=== PATIENT | female | born 1950 ===

== ENCOUNTER 2025-07-10 13:28 | Outpatient (AMB) | payer MEDICARE, SELFPAY ==
--- OUTSIDE RECORDS SUMMARY | 2024-12-23 10:00 | XMS_ITS ---
Author Organization [facility] [address] Address [address] [place] [address] Care Team Providers Care Senior Director Of Strategy Name Role Phone KATIE GUTIÉRREZ Primary Care Provider JIMMIE LOFTON Unavailable [phone] Problems Problem Type SNOMED Code ICD Code Onset Dates Problem Status W/U Status Risk Notes Problem Chronic hypoxic respiratory failure (J96.11) Active confirmed Encounters Encounter Location Date Provider Diagnosis [facility] [address] [facility] [address] [facility] [place] [address] [place] [address] 12/23/2024 JIMMIE LOFTON Chronic obstructive pulmonary disease, unspecified J44.9 ; Chronic hypoxic respiratory failure J96.11 ; Essential hypertension I10 ; Chronic diastolic heart failure I50.32 ; Morbid obesity E66.01 ; Dependence on supplemental oxygen Z99.81 ; Body mass index (BMI) 50-59.9 , adult Z68.43 and Other chronic pain G89.29 Assessments Encounter Date Diagnosis (ICD Code) Assessment Notes Treatment Notes Treatment Clinical Notes Section Notes 12/23/2024 Chronic obstructive pulmonary disease, unspecified (ICD-10 - J44.9) Acute Concerns/Problem List: 12/23/2024 Of note, some information is being carried forward from prior records for informational purposes only and is being cited so that efficiency, safety and quality of the patient's care is not compromised This note was prepared using voice recognition software and direct typing Please excuse inadvertent perch mender or typing errors, or uncorrected word substitutions Although every attempt has been made by the provider to proofread this document, occasional misspellings and typographical errors may still be present Due to the previous pandemic, and the use of personal protective equipment (PPE) This may decrease voice recognition accuracy Inadvertent perch mender errors may occur 12/23/2024 Chronic hypoxic respiratory failure (ICD-10 - J96.11) Acute Concerns/Problem List: 12/23/2024 Of note, some information is being carried forward from prior records for informational purposes only and is being cited so that efficiency, safety and quality of the patient's care is not compromised This note was prepared using voice recognition software and direct typing Please excuse inadvertent perch mender or typing errors, or uncorrected word substitutions Although every attempt has been made by the provider to proofread this document, occasional misspellings and typographical errors may still be present Due to the previous pandemic, and the use of personal protective equipment (PPE) This may decrease voice recognition accuracy Inadvertent perch mender errors may occur 12/23/2024 Essential hypertension (ICD-10 - I10) Acute Concerns/Problem List: 12/23/2024 Of note, some information is being carried forward from prior records for informational purposes only and is being cited so that efficiency, safety and quality of the patient's care is not compromised This note was prepared using voice recognition software and direct typing Please excuse inadvertent perch mender or typing errors, or uncorrected word substitutions Although every attempt has been made by the provider to proofread this document, occasional misspellings and typographical errors may still be present Due to the previous pandemic, and the use of personal protective equipment (PPE) This may decrease voice recognition accuracy Inadvertent perch mender errors may occur 12/23/2024 Chronic diastolic heart failure (ICD-10 - I50.32) Acute Concerns/Problem List: 12/23/2024 Of note, some information is being carried forward from prior records for informational purposes only and is being cited so that efficiency, safety and quality of the patient's care is not compromised This note was prepared using voice recognition software and direct typing Please excuse inadvertent perch mender or typing errors, or uncorrected word substitutions Although every attempt has been made by the provider to proofread this document, occasional misspellings and typographical errors may still be present Due to the previous pandemic, and the use of personal protective equipment (PPE) This may decrease voice recognition accuracy Inadvertent perch mender errors may occur 12/23/2024 Morbid obesity (ICD-10 - E66.01) Acute Concerns/Problem List: 12/23/2024 Of note, some information is being carried forward from prior records for informational purposes only and is being cited so that efficiency, safety and quality of the patient's care is not compromised This note was prepared using voice recognition software and direct typing Please excuse inadvertent perch mender or typing errors, or uncorrected word substitutions Although every attempt has been made by the provider to proofread this document, occasional misspellings and typographical errors may still be present Due to the previous pandemic, and the use of personal protective equipment (PPE) This may decrease voice recognition accuracy Inadvertent perch mender errors may occur 12/23/2024 Dependence on supplemental oxygen (ICD-10 - Z99.81) Acute Concerns/Problem List: 12/23/2024 Of note, some information is being carried forward from prior records for informational purposes only and is being cited so that efficiency, safety and quality of the patient's care is not compromised This note was prepared using voice recognition software and direct typing Please excuse inadvertent perch mender or typing errors, or uncorrected word substitutions Although every attempt has been made by the provider to proofread this document, occasional misspellings and typographical errors may still be present Due to the previous pandemic, and the use of personal protective equipment (PPE) This may decrease voice recognition accuracy Inadvertent perch mender errors may occur 12/23/2024 Body mass index (BMI) 50-59.9 , adult (ICD-10 - Z68.43) Acute Concerns/Problem List: 12/23/2024 Of note, some information is being carried forward from prior records for informational purposes only and is being cited so that efficiency, safety and quality of the patient's care is not compromised This note was prepared using voice recognition software and direct typing Please excuse inadvertent perch mender or typing errors, or uncorrected word substitutions Although every attempt has been made by the provider to proofread this document, occasional misspellings and typographical errors may still be present Due to the previous pandemic, and the use of personal protective equipment (PPE) This may decrease voice recognition accuracy Inadvertent perch mender errors may occur 12/23/2024 Other chronic pain (ICD-10 - G89.29) Acute Concerns/Problem List: 12/23/2024 Of note, some information is being carried forward from prior records for informational purposes only and is being cited so that efficiency, safety and quality of the patient's care is not compromised This note was prepared using voice recognition software and direct typing Please excuse inadvertent perch mender or typing errors, or uncorrected word substitutions Although every attempt has been made by the provider to proofread this document, occasional misspellings and typographical errors may still be present Due to the previous pandemic, and the use of personal protective equipment (PPE) This may decrease voice recognition accuracy Inadvertent perch mender errors may occur Plan Of Treatment No Information Progress Notes * TONJA KELLOGG ADOB:[birth year] (74 yo F)Acc No.[id number]:12/23/2024 Progress Notes Patient: TONJA MARTINEZ Provider: Alpa LOFTON NP :1950 A ge:74 Y S ex:Female Date:12/23/2024 Address:[address] [place] [address] [place], [place] [id number] Pcp:KATIE GUTIÉRREZ Subjective: * Chief Complaints: * * HPI: C onstitutional: Patient is here for Chronic Disease Management follow-up visit Patient seen and examined. Full past medical history, social history, family history, allergies and current medications were reviewed and updated. Acute Concerns/Problem List: 12/23/2024 chronically ill and medically complex Presents with Mikki AMANDA who is also her sister in law Mikki is her HCP and takes care of [facility] [employer] currently Patient with multiple chronic conditions and multiple recent hospitalizations at multiple facilities She has a past history that is significant for chronic hypoxic respiratory failure, oxygen dependent COPD normally on 3 L via nasal cannula, type 2 diabetes, hypertension, hyperlipidemia, morbid obesity, chronic diastolic heart failure Most recent EF showed normal EF, mild , She underwent right and left heart cath in May 2024 which showed no significant CAD. * ROS: A ll Other Systems: Review of Systems (ROS) A ll others negative except those mentioned in HPI. * Medical History: Objective: * Vitals: * Examination: G eneral Examination: P hysical Exam Constitutional: Alert, in no acute distress.Morbidly obese wheelchair-bound Head EENT: PERRL. NCAT. Neck: Supple. No obvious LAD. Respiratory: CTAB. No use of accessory muscles. Cardiovascular: S1S2 present. No obvious JVD. Gastrointestinal: Abdomen soft, non-tender, non-distended. Bowel sounds present. Genitourinary: No CVA tenderness. Genital exam deferred. Extremities: Mild edema. No cyanosis or clubbing. Neurologic: Alert, generally appropriate. Speech normal. No gross focal neurological deficits. Assessment: * Assessment: 1. C hronic obstructive pulmonary disease, unspecified - J44.9 (Primary) 2 .?Chronic hypoxic respiratory failure - J96.11 3 . E ssential hypertension - I10 4 . C hronic diastolic heart failure - I50.32 5 . M orbid obesity - E66.01 6 . D ependence on supplemental oxygen - Z99.81 ?7. B ermias mass index (BMI) 50-59.9 , adult - Z68.43 8 . O ther chronic pain - G89.29 Acute Concerns/Problem List: 12/23/2024 Of note, some information is being carried forward from prior records for informational purposes only and is being cited so that efficiency, safety and quality of the patient's care is not compromised This note was prepared using voice recognition software and direct typing Please excuse inadvertent perch mender or typing errors, or uncorrected word substitutions Although every attempt has been made by the provider to proofread this document, occasional misspellings and typographical errors may still be present Due to the previous pandemic, and the use of personal protective equipment (PPE) This may decrease voice recognition accuracy Inadvertent perch mender errors may occur. Plan: * Treatment: * Images: Billing Information: * Visit Code: * Procedure Codes: Care Plan Details* * Electronic signature of DARINEL LOFTON on 07/10/2025 at 02:10 PM EDT Sign off status: Pending * Provider: Alpa LOFTON NP Date: 0 12/23/2024 Generated for Neno jay/Katie/Oleg on: 0 07/10/2025 02:10 PM EDT History and Physical Notes * HPI (History of Present Illness) Category Sub-Category Detail Notes Category Not es Constitutional Patient is here for Chronic Disease Management follow-up visit Patient seen and examined. Full past medical history, social history, family history, allergies and current medications were reviewed and updated. Acute Concerns/Problem List: 12/23/2024 chronically ill and medically complex Presents with Mikki AMANDA who is also her sister in law Mikki is her HCP and takes care of [employer] [employer] currently Patient with multiple chronic conditions and multiple recent hospitalizations at multiple facilities She has a past history that is significant for chronic hypoxic respiratory failure, oxygen dependent COPD normally on 3 L via nasal cannula, type 2 diabetes, hypertension, hyperlipidemia, morbid obesity, chronic diastolic heart failure Most recent EF showed normal EF, mild , She underwent right and left heart cath in May 2024 which showed no significant CAD Examination Category Sub-Category Detail Notes Category Not es General Examination Physical Exam Constitutional: Alert, in no acute distress.Morbidly obese wheelchair-bound Head EENT: PERRL. NCAT. Neck: Supple. No obvious LAD. Respiratory: CTAB. No use of accessory muscles. Cardiovascular: S1S2 present. No obvious JVD. Gastrointestinal: Abdomen soft, non-tender, non-distended. Bowel sounds present. Genitourinary: No CVA tenderness. Genital exam deferred. Extremities: Mild edema. No cyanosis or clubbing. Neurologic: Alert, generally appropriate. Speech normal. No gross focal neurological deficits.
--- OUTSIDE RECORDS SUMMARY | 2025-02-03 07:15 | XMS_ITS ---
Author Organization [facility] [address] Address [address] [place] [address] Care Team Providers Care Educational Recruiter Name Role Phone KATIE GUTIÉRREZ Primary Care Provider [phone] JIMMIE LOFTON Unavailable [phone] Encounters Encounter Location Date Provider Diagnosis [facility] [address] [place] [address] 02/03/2025 JIMMIE LOFTON Plan Of Treatment No Information Progress Notes * TONJA KELLOGG ADOB:[birth year] (74 yo F)Acc No.[id number]:02/03/2025 Progress Notes Patient: Bassem MARINA TONJA Heredia Provider: Alpa LOFTON NP :1950 A ge:74 Y S ex:Female Date:02/03/2025 Address:[address] [place], [id number] Pcp:KATIE GUTIÉRREZ Subjective: * Chief Complaints: * * Medical History: Objective: * Vitals: Assessment: Plan: * Treatment: * Images: Billing Information: * Visit Code: * Procedure Codes: Care Plan Details* * Electronic signature of DARINEL LOFTON on 07/10/2025 at 02:11 PM EDT Sign off status: Pending * Provider: Alpa LOFTON NP Date: 0 02/03/2025 Generated for Printi ng/Faxing/eTransmitting on: 0 07/10/2025 02:11 PM EDT
--- OUTSIDE RECORDS SUMMARY | 2025-02-27 07:30 | XMS_ITS ---
Author Organization [facility] [address] Address [address] [place] [address] Care Team Providers Care Trolley Car Overhauler Name Role Phone KATIE GUTIÉRREZ Primary Care Provider [phone] JIMMIE LOFTON Unavailable [phone] Encounters Encounter Location Date Provider Diagnosis [facility] [address] [place] [address] 02/27/2025 JIMMIE LOFTON Plan Of Treatment No Information Progress Notes * TONJA KELLOGG ADOB:[birth year] (74 yo F)Acc No.[id number]:02/27/2025 Progress Notes Patient: Bassem MARINA TONJA [place] Provider: Alpa LOFTON NP :1950 A ge:74 Y S ex:Female Date:02/27/2025 Address:[address], [place], [id number] Pcp:KATIE GUTIÉRREZ Subjective: * Chief Complaints: * * Medical History: Objective: * Vitals: Assessment: Plan: * Treatment: * Images: Billing Information: * Visit Code: * Procedure Codes: Care Plan Details* * Electronic signature of DARINEL LOFTON on 07/10/2025 at 02:09 PM EDT Sign off status: Pending * Provider: Alpa LOFTON NP Date: 0 02/27/2025 Generated for Printi ng/Faxing/eTransmitting on: 0 07/10/2025 02:09 PM EDT
--- OUTSIDE RECORDS SUMMARY | 2025-07-09 17:22 | XMS_ITS | Continuity of Care Document ---
Author Organization [facility] ter Address [address] [place] [id number] Care Team Providers Care Quality Control Clerk Name Role Phone Conrado Melendez MD Primary Care Physician [phone] [facility]counter [facility] [id number] Date(s): 07/07/25 - 07/09/[address] [address]- Encounter Diagnosis Syncope(Final) - 07/07/25 Discharge Disposition: A-Transfer SNF Attending Physician: Yulisa Pepe MD Admitting Physician: Ivan Borrego MD Referring Physician: Not on Staff, Referring MD Encounter Type: Disch Obv Allergies, Adverse Reactions, Alerts Substance Criticality Severity Reaction Reaction Severity Status codeine migraines Active aspirin stomach bleeding Act ebony nonsteroidal anti-inflammatory agents Unable to assess criticality Persistent Moderate stomach bleeding Active Melon anaphylaxis Active Medications acetaminophen-oxycodone 325 mg-7.5 mg oral tablet 1 tablet, By Mouth, 3 times a day, PRN Pain , Severe, 0 Refills Start Date: 03/31/24 Status: Ordered Medication Dispense Status: Completed Total Allowed Fills: 1 Fills Dispensed: 0 atorvastatin 40 mg oral tablet 1 tablet = 40 mg, By Mouth, Daily, # 90 tablet, 0 Refills, Maintenance, 03/31/24 3:20:00 PM EDT, Tablet, Partial fill upon patient request if the prescription is for a schedule II opioid drug. Start Date: 03/31/24 Status: Ordered Medication Dispense Status: Completed Quantity: 90.0 Unit: tablet Total Allowed Fills: 1 Fills Dispensed: 0 Breo Ellipta 100 mcg-25 mcg/inh inhalation powder INHALE 1 PUFF EVERY DAY AT THE SAME TIME EACH DAY Start Date: 03/31/24 Status: Ordered Medication Dispense Status: Completed Total Allowed Fills: 1 Fills Dispensed: 0 buPROPion 100 mg/12 hours (SR) oral tablet, extended release = 100 mg, By Mouth, Daily, 0 Refills, Maintenance, 07/09/25 12:52:00 PM EDT, SR Tablet, Partial fillupon patient request if the prescription is for a schedule II opioid drug. Start Date: 07/09/25 Status: Ordered Medication Dispense Status: Completed Total Allowed Fills: 1 Fills Dispensed: 0 cephalexin monohydrate 500 mg oral capsule = 500 mg, By Mouth, 2 times a day, 0 Refills, Maintenance, 01/28/25 1:45:00 PM EDT, Capsule, Partialfill upon patient request if the prescription is for a schedule II opioid drug. Start Date: 01/28/25 Stop Date: 02/01/25 Status: Ordered Medication Dispense Status: Completed Total Allowed Fills: 1 Fills Dispensed: 0 cetirizine 10 mg oral tablet 1 tablet = 10 mg, By Mouth, Daily, # 30 tablet, 0 Refills, Maintenance, 11/26/24 12:34:00 PM EST, Tablet, Partial fill upon patient request if the prescription is for a schedule II opioid drug. Start Date: 11/26/24 Status: Ordered Medication Dispense Status: Completed Quantity: 30.0 Unit: tablet Total Allowed Fills: 1 Fills Dispensed: 0 docusate sodium 100 mg oral capsule 1 capsule = 100 mg, By Mouth, Daily, PRN as needed for constipation Start Date: 03/31/24 Status: Ordered Medication Dispense Status: Completed Total Allowed Fills: 1 Fills Dispensed: 0 fluticasone 50 mcg/inh nasal spray 1 sprays, Nares, Both, 2 times a day, # 16 Gm, 0 Refills, Maintenance, 05/15/18 9:43:56 AM EDT, Orrum Start Date: 05/15/18 Status: Ordered Medication Dispense Status: Completed Quantity: 16.0 Unit: g Total Allowed Fills: 1 Fills Dispensed: 0 gabapentin 400 mg oral capsule 800 mg, Capsule, By Mouth, 07/09/25 9:00:00 AM EDT Start Date: 07/09/25 Stop Date: 07/09/25 Status: Completed Medication Dispense Status: Completed Total Allowed Fills: 1 Fills Dispensed: 0 gabapentin 800 mg oral tablet 1 tablet = 800 mg, By Mouth, 3 times a day, # 90 tablet, 0 Refills, Maintenance, 08/21/18 6:56:17 PMEDT, Tablet Start Date: 08/21/18 Status: Ordered Medication Dispense Status: Completed Quantity: 90.0 Unit: tablet Total Allowed Fills: 1 Fills Dispensed: 0 Jardiance 10 mg oral tablet 1 tablet = 10 mg, By Mouth, Daily in AM, # 30 tablet, 0 Refills, Maintenance, 11/26/24 12:34:00 PM EST, Tablet, Partial fill upon patient request if the prescription is for a schedule II opioid drug. Start Date: 11/26/24 Status: Ordered Medication Dispense Status: Completed Quantity: 30.0 Unit: tablet Total Allowed Fills: 1 Fills Dispensed: 0 metFORMIN 500 mg oral tablet 1 tablet = 500 mg, By Mouth, 2 times a day, # 180 tablet, 0 Refills, Maintenance, 08/21/18 7:10:18 PM EDT, Tablet Start Date: 08/21/18 Status: Ordered Medication Dispense Status: Completed Quantity: 180.0 Unit: tablet Total Allowed Fills: 1 Fills Dispensed: 0 metolazone 2.5 mg oral tablet 2.5 mg, 1, tablet, By Mouth, Every 14 days, PRN, Please take 45 minutes before morning if you have noticed the weight gain- 3lb in a single day or 5lb over a period of 5 days-- and notify your PCP orcardiology, # 5 tablet, Refills 0, Tot. Refills 0, Maintenance, Other, 05/31/24 9:31:00 AM EDT, Route to Pharmacy Electronically, [facility], Partial fill upon patient request if the prescription is for a schedule II opioid drug., 163, cm, 05/31/24 8:30:00 EDT, Height, 134.5, kg, 05/27/24 23:16:00 EDT, Dry Weight Start Date: 05/31/24 Status: Ordered Medication Dispense Status: Completed Quantity: 5.0 Unit: tablet Total Allowed Fills: 1 Fills Dispensed: 0 montelukast 10 mg oral tablet 10 mg, 1, tablet, By Mouth, Daily at bedtime Start Date: 03/31/24 Status: Ordered Medication Dispense Status: Completed Total Allowed Fills: 1 Fills Dispensed: 0 omeprazole 20 mg oral enteric coated tablet 1 tablet = 20 mg, By Mouth, Daily, 0 Refills, Maintenance, 11/10/10 3:43:28 PM EST Start Date: 11/10/10 Status: Ordered Medication Dispense Status: Completed Total Allowed Fills: 1 Fills Dispensed: 0 Percocet-5/325 325 mg-5 mg oral tablet 1 tablet, Tablet, By Mouth, Every 6 hours, PRN for Pain , Severe, Routine, 07/08/25 2:25:00 AM EDT Start Date: 07/08/25 Stop Date: 07/10/25 Status: Discontinued Medication Dispense Status: Completed Total Allowed Fills: 1 Fills Dispensed: 0 Potassium Chloride (Qrn-Oxty-Xrq M20) 20 mEq oral tablet, extended release 2 tablet = 40 mEq, By Mouth, 2 times a day, # 60 tablet, 0 Refills, Maintenance, 01/25/25 3:15:00 PMEDT, ER Tablet, Partial fill upon patient request if the prescription is for a schedule II opioid drug. Start Date: 01/25/25 Status: Ordered Medication Dispense Status: Completed Quantity: 60.0 Unit: tablet Total Allowed Fills: 1 Fills Dispensed: 0 pregabalin 150 mg oral capsule 1 capsule = 150 mg, By Mouth, 3 times a day Start Date: 03/31/24 Status: Ordered Medication Dispense Status: Completed Total Allowed Fills: 1 Fills Dispensed: 0 Senna-Time 8.6 mg oral tablet 2 tablet = 17.2 mg, By Mouth, Daily at bedtime, PRN as needed for constipation Start Date: 03/31/24 Status: Ordered Medication Dispense Status: Completed Total Allowed Fills: 1 Fills Dispensed: 0 spironolactone 25 mg oral tablet 25 mg, 1, tablet, By Mouth, Daily, # 30 tablet, Refills 0, Maintenance, 11/26/24 12:34:00 PM EST, Partial fill upon patient request if the prescription is for a schedule II opioid drug. Start Date: 11/26/24 Status: Ordered Medication Dispense Status: Completed Quantity: 30.0 Unit: tablet Total Allowed Fills: 1 Fills Dispensed: 0 Synthroid Tablet = 50 mcg, By Mouth, Daily, 0 Refills, Maintenance, 07/14/09 4:06:05 PM EDT Start Date: 07/14/09 Status: Ordered Medication Dispense Status: Completed Total Allowed Fills: 1 Fills Dispensed: 0 tamsulosin 0.4 mg oral capsule 0.4 mg, 1, capsule, By Mouth, Daily, # 30 capsule, Refills 0, Maintenance, 03/31/24 1:45:00 PM EDT, Partial fill upon patient request if the prescription is for a schedule II opioid drug. Start Date: 03/31/24 Status: Ordered Medication Dispense Status: Completed Quantity: 30.0 Unit: capsule Total Allowed Fills: 1 Fills Dispensed: 0 topiramate 50 mg oral tablet 1 tablet = 50 mg, By Mouth, 2 times a day, # 60 tablet, 5 Refills, Maintenance, 03/31/24 3:18:00 PM EDT, Tablet, Partial fill upon patient request if the prescription is for a schedule II opioid drug. Start Date: 03/31/24 Status: Ordered Medication Dispense Status: Completed Quantity: 60.0 Unit: tablet Total Allowed Fills: 1 Fills Dispensed: 0 torsemide 20 mg oral tablet 3 tablet = 60 mg, By Mouth, 2 times a day, # 90 tablet, 0 Refills, Maintenance, 05/31/24 9:33:00 AM EDT, Tablet, [facility], Partial fill upon patient request if the prescription is for a schedule II opioid drug., 163, cm, 05/31/24 8:30:00 EDT, Height, 134.5, kg, 05/27/24 23:16:00 EDT,Dry Weight Start Date: 05/31/24 Status: Ordered Medication Dispense Status: Completed Quantity: 90.0 Unit: tablet Total Allowed Fills: 1 Fills Dispensed: 0 venlafaxine 150 mg oral capsule, extended release 1 capsule = 150 mg, By Mouth, Daily, takes with 75mg daily total 225mg, # 30 capsule, 0 Refills, Maintenance, 03/31/24 1:40:00 PM EDT, ER Capsule, Partial fill upon patient request if the prescriptionis for a schedule II opioid drug. Start Date: 03/31/24 Status: Ordered Medication Dispense Status: Completed Quantity: 30.0 Unit: capsule Total Allowed Fills: 1 Fills Dispensed: 0 venlafaxine 75 mg oral tablet 1 tablet = 75 mg, See Instructions, take with the 150mg for 225 mg Start Date: 11/01/24 Status: Ordered Medication Dispense Status: Completed Total Allowed Fills: 1 Fills Dispensed: 0 Ventolin HFA 108 mcg/inh inhalation aerosol with adapter 2 puffs, Inhalation, PRN Wheezing/Shortness of Breath, EVERY 4 TO 6 HOURS NEEDED Start Date: 03/31/24 Status: Ordered Medication Dispense Status: Completed Total Allowed Fills: 1 Fills Dispensed: 0 Problem List Condition Confirmation Course Effective Dates Status H ealth Status Informant Chronic depression Confirmed Active Chronic hypoxic respiratory failure Confirmed Active COPD - Chronic obstructive pulmonary disease Confirmed Active COVID-19 1 Confirmed 11/28/24 Active Diagnostic colonoscopy Confirmed Active Fall at home Confirmed Active Chronic heart failure with preserved ejection fraction (HFpEF) Confirmed Active Hemorrhoid Confirmed Active Hyperlipidemia Confirmed Active Hypertension Confirmed Active Hypothyroid Confirmed Active IGT - Impaired glucose tolerance Confirmed Active Localized osteoarthritis Confirmed Active Neuropathy Confirmed Active Obstructive sleep apnea syndrome Confirmed Active KYLER on CPAP Confirmed Active Painless rectal bleeding Confirmed Active Peptic ulcer with hemorrhage Confirmed Active COPD type A Confirmed Active Severe obesity Confirmed Active 1Problem added by Discern Expert Results Radiology Reports * Exam Date Time Procedure Performing Provider Status 07/08/25 6:[address] Head/Brain W/O Contrast Auth (Verified) Notes: (CT Head/Brain W/O Contrast) Reason For Exam: unresponsive for 7 mion prior to admission;Other: RESULT: CT Head/Brain W/O Contrast CT Head/Brain W/O Contrast INDICATION: Reason: Other:; unresponsive for 7 mion prior to admission; Clinical Question(s): Other:; Order Comment: TECHNIQUE: Noncontrast head CT using axial technique and reconstructed in axial and coronal planes.Iterative reconstruction techniques are used to optimize dose and image quality. CTDIvol Head: 47.00 mGy, DLP Head: 773 mGy*cm. COMPARISON: 01/26/2025 FINDINGS: Investigations Director view findings, lines and tubes: None. BRAIN AND EXTRA-AXIAL SPACES: No parenchymal hemorrhage, midline shift, or mass effect. Oglesby-white matter differentiation is wellpreserved. No acute infarct. Ventricles, sulci, and basilar cisterns are normal. No white matter lesions. No subarachnoid hemorrhage. No subdural or epidural collection. CALVARIUM, SKULL BASE, AND SOFT TISSUES: No fractures or suspicious bony lesions. The paranasal sinuses and mastoid air cells are clear. Visualized orbits and globes are intact. The extracranial soft tissues are unremarkable. IMPRESSION: No acute intracranial pathology. WSN: [id number] Ordering Physician: Estefany Green Dictated By: Eb Murillo MD Dictated Date/Time: 07/08/25 6:34 pm Reviewed By: Eb Murillo MD Signed By: Eb Murillo MD Signed Date/Time: 07/08/25 6:34 pm Transcribed By: GABBY Transcribed Date/Time: 07/08/25 6:33 pm * Exam Date Time Procedure Performing Provider Status 07/07/25 1:04 PM Chest 2 Views Frontal and Lat Auth (Verified) Notes: (Chest 2 Views Frontal and Lat) Reason For Exam: Shortness of Breath, Fever;Other: RESULT: Chest 2 Views Frontal and Lat Chest 2 Views Frontal and Lat Reason: Other:; Shortness of Breath, Fever; Clinical Question(s): Pneumonia COMPARISON: Multiple priors with the most recent dated 01/25/2025. FINDINGS: Slightly limited examination due to the patient's body habitus and underpenetration. LINES AND TUBES: None. LUNGS AND PLEURA: Moderate low lung volumes with mild bibasilar atelectasis. No definite focal consolidation is seen.Normal pulmonary vascularity. No pleural effusion. No pneumothorax. HEART, MEDIASTINUM AND VIVI: Heart is normal in size. Normal mediastinal and hilar contour. BONES AND SOFT TISSUES: No acute abnormality. Status post ACDF lower cervical spine. IMPRESSION: No acute abnormality. WSN: [id number] Ordering Physician: Sammi Newsome Dictated By: Cj Krueger MD, V Dictated Date/Time: 07/07/25 1:36 pm Reviewed By: Cj Krueger MD, V Signed By: Cj Krueger MD, V Signed Date/Time: 07/07/25 1:36 pm Transcribed By: GABBY Transcribed Date/Time: 07/07/25 1:35 pm Social History Social History Type Response Smoking Status Former smoker; Type: Cigarettes; Tobacco use times per day: Previously smoked 8-10 cigarettes per day; quit smoking in 1998;; Number of years: 20; Started at age: 19; Stopped at age: 49; entered on: 08/22/18 Sex Sex Representation Female (finding) History and physical note * Noah Eric MD: PERFORM Event Display: History and Physical Hospital Authored Date: [id number] Patient: ??BESS, TONJA ? Age:??74 Years?Sex:??Female?:??1950?? Chief Complaint/Reason for Consultation syncope History of Present Illness 74-year-old female was brought to the emergency room from her rehab facility after a syncopal event.Apparently earlier today she was given her usual pain medication, Percocet, subsequently she had a loss of consciousness and was unresponsive.?? According to the ER notes she was out for 7 minutes.?By the time she reached the emergency room she had returned to baseline.?The patient does not remember the episode.?? She does tell me that over the last 3 days she has had a slight cough with clear phlegm.?? However she denies any chest pain, lightheadedness, focal weakness, headache, abdominal pain, vomiting, diarrhea, shortness of breath more than baseline.? EKG: sinus??56??bpm t??wave inv??v1-3 first degree ?? RESULT: Chest 2 Views Frontal and Lat Chest 2 Views Frontal and Lat?? IMPRESSION: No acute abnormality. Review of Systems Constitutional:??No weight loss, fever, chills, weakness or fatigue. Eyes:??No visual loss, blurred vision, double vision or yellow sclera ENT:??No hearing loss, sneezing, congestion, runny nose or sore throat. Respiratory:??cough Cardiovascular: syncope Gastrointestinal:??No anorexia, nausea, vomiting or diarrhea. No abdominal pain or blood in stool. Genitourinary:??No burning micturition. No urinary frequency or incontinence. Neurologic:??No headache, unilateral weakness, ataxia, numbness or tingling in the extremities. Musculoskeletal:??No muscle pain, back pain, joint pain or stiffness. Skin:??No rash or itching. Endocrine:??No reports of sweating. No cold or heat intolerance. No polyuria or polydipsia. Psychiatric:??No depression or anxiety. Objective Measurements?? Height: 160 cm (07/08/25) Weight: 131.6 kg (07/07/25) ? Vital Signs?? Temperature: 98.1 DegF (07/08/25 04:08:00) Temperature Route: Oral (07/08/25 04:08:00) Pulse Rate: 59 bpm (07/08/25 04:08:00) Pulse Rate, Lyin bpm (07/07/25 23:23:00) Systolic Blood Pressure, Lyin mm Hg (07/07/25 23:23:00) Diastolic Blood Pressure, Lyin mm Hg (07/07/25 23:23:00) Pulse Rate, Sittin bpm (07/07/25 23:23:00) Systolic Blood Pressure, Sittin mm Hg (07/07/25 23:23:00) Diastolic Blood Pressure, Sittin mm Hg (07/07/25 23:23:00) Pulse Rate, Standin bpm (07/07/25 23:23:00) Systolic Blood Pressure, Standin mm Hg (07/07/25 23:23:00) Diastolic Blood Pressure, Standin mm Hg (07/07/25 23:23:00) Respiratory Rate: 20 br/min (07/08/25 04:08:00) Systolic Blood Pressure: 120 mm Hg (07/08/25 04:08:00) Diastolic Blood Pressure: 77 mm Hg (07/08/25 04:08:00) Blood pressure sites: Arm, right (07/08/25 04:08:00) Mean Arterial Pressure: 91 mm Hg (07/08/25 04:08:00) Pulse Pressure: 43 mm Hg (07/08/25 04:08:00) Oxygen Saturation: 96 % (07/08/25 04:08:00) Liters per Minute: 3 L/min (07/08/25 04:08:00) Mode of Delivery (Oxygen): Nasal cannula (07/08/25 04:08:00) Early Warning Score: 0 (07/08/25 04:12:32) ? Physical Exam Constitutional: Alert, in no distress. Mental Status: Oriented to person, place and time. Head: Normocephalic. Eyes: Pupils are equal, round and reactive to light. Extraocular muscles intact. Ear, Nose and Throat: Oropharynx clear, mucous membranes moist.?? Neck: Supple, Full range of motion. Respiratory: Clear to auscultation. No wheezing, rales or rhonchi. Cardiovascular: S1 S2 regular. No murmurs, rubs or gallops. Gastrointestinal: Abdomen soft, non-tender, non-distended. Normal bowel sounds. Neurologic: Cranial nerves II-XII grossly intact. power??5/5??x4 Skin: No rashes or lesions. No petechiae or purpura.?? Musculoskeletal: No cyanosis or clubbing. No gross deformities. Normal range of motion. Psychiatric: Normal mood and affect Assessment/Plan Syncope (R55):? As noted above she had a potential syncopal event earlier today at her facility Reportedly lost consciousness and was unresponsive for up to 7 minutes. orthostatics negative However exact circumstances unclear. Concern for possible arrhythmia, seizure, vasovagal Continue to monitor on telemetry Check echocardiogram???patient does have a history of mild 1 year ago Seizure precautions ?? CHF (congestive heart failure) (I50.9):? Appears euvolemic Continue Aldactone, torsemide ?? Diabetes (E11.9):? Hold metformin Sliding scale Hypoglycemic measures as needed ?? Neuropathy (G62.9):? Continue gabapentin and pregabalin ?? Anxiety and depression (F41.9):? Continue venlafaxine and bupropion ?? KYLER (obstructive sleep apnea) (G47.33):? CPAP at bedtime ?? VTE Prophylaxis:? Heparin subcu ?VTE Prophylaxis Assessment:??VTE Prophylaxis Ordered ?? Code Status:? Full code Confirmed with patient at bedside ?Order Code Status:??Code Status Ordered ?? Patient seen 07/08/2025 ? Histories Allergies Allergies ?(Active and Proposed Allergies Only) Melon? (Severity: Unknown severity, Onset: Unknown) ?Reactions: anaphylaxis nonsteroidal anti-inflammatory agents? (Severity: Persistent Moderate, Onset: Unknown) ?Reactions: stomach bleeding codeine? (Severity: Unknown severity, Onset: Unknown) ?Reactions: migraines aspirin? (Severity: Unknown severity, Onset: Unknown) ?Reactions: stomach bleeding ? Past Medical History/Problem List Active Problems(20) Chronic depression Chronic heart failure with preserved ejection fraction (HFpEF) Chronic hypoxic respiratory failure COPD - Chronic obstructive pulmonary disease Hyperlipidemia Hypertension Hypothyroid Neuropathy KYLER on CPAP Severe obesity ? Social History live in [facility] non smoker denies alcohol ? Family History Mother??(): Arthritis; Diabetes mellitus type I; Heart disease Father??(): Arthritis; Diabetes mellitus type I; Heart disease Sister: Arthritis Sister: Arthritis Brother: Arthritis ? Medications Home Medications Albuterol (Ventolin HFA 108 mcg/inh inhalation aerosol with adapter)??2 puff(s) Inhalation as needed Wheezing/Shortness of Breath EVERY 4 TO 6 HOURS NEEDED Atorvastatin (atorvastatin 40 mg oral tablet)??1 tab(s) 40 Milligram By Mouth Daily Cetirizine (cetirizine 10 mg oral tablet)??1 tab(s) 10 Milligram By Mouth Daily empagliflozin (Jardiance 10 mg oral tablet)??1 tab(s) 10 Milligram By Mouth Daily in AM Gabapentin (gabapentin 800 mg oral tablet)??1 tab(s) 800 Milligram By Mouth??2 times a day Levothyroxine (Synthroid Tablet)??50 Microgram By Mouth Daily Metformin (metFORMIN 500 mg oral tablet)??1 tab(s) 500 Milligram By Mouth 2 times a day Metolazone (metolazone 2.5 mg oral tablet)??2.5 Milligram 1 tablet By Mouth Every 14 days as neededPlease take 45 minutes before morning if you have noticed ??the weight gain- 3lb in a single day or5lb over a period of 5 days-- and notify your PCP or cardiology Other Montelukast (montelukast 10 mg oral tablet)??10 Milligram 1 tablet By Mouth Daily at bedtime Omeprazole (omeprazole 20 mg oral enteric coated tablet)??1 tab(s) 20 Milligram By Mouth Daily Oxycodone / Acetaminophen (acetaminophen-oxycodone 325 mg-7.5 mg oral tablet)??1 tab(s) By Mouth 3 times a day as needed Pain , Severe Potassium Chloride (Potassium Chloride (Frj-Cmuq-Ptz M20) 20 mEq oral tablet, extended release)??2 tab(s) 40 Milliequivalent By Mouth 2 times a day Pregabalin (pregabalin 150 mg oral capsule)??1 capsule 150 Milligram By Mouth 3 times a day Senna (Senna-Time 8.6 mg oral tablet)??2 tab(s) 17.2 Milligram By Mouth Daily at bedtime as needed as needed for constipation Spironolactone (spironolactone 25 mg oral tablet)??25 Milligram 1 tablet By Mouth Daily Tamsulosin (tamsulosin 0.4 mg oral capsule)??0.4 Milligram 1 capsule By Mouth Daily Topiramate (topiramate 50 mg oral tablet)??1 tab(s) 50 Milligram By Mouth 2 times a day torsemide (torsemide 20 mg oral tablet)??3 tab(s) 60 Milligram By Mouth 2 times a day Venlafaxine (venlafaxine 150 mg oral capsule, extended release)??1 capsule 150 Milligram By Mouth Daily takes with 75mg daily total 225mg Venlafaxine (venlafaxine 75 mg oral tablet)??1 tab(s) 75 Milligram See Instructions take with the 150mg for 225 mg ? Results Recent Labs BLOOD COUNT & DIFF WBC 8.6 k/mm3 ()?? 07/07/2025 15:30 RBC 4.14 m/mm3 (Low)?? 07/07/2025 15:30 Hgb 11.9 Gm/dL ()?? 07/07/2025 15:30 Hct 38.6 % ()?? 07/07/2025 15:30 MCV 93.2 femtoliters ()?? 07/07/2025 15:30 MCH 28.7 pg ()?? 07/07/2025 15:30 MCHC 30.8 Gm/dL (Low)?? 07/07/2025 15:30 Platelet Count 276 k/mm3 ()?? 07/07/2025 15:30 RDW-SD 51.3 femtoliters (High)?? 07/07/2025 15:30 MPV 10.8 femtoliters ()?? 07/07/2025 15:30 Nucleated RBC (Automated) 0.0 #/100 WBC'S ()?? 07/07/2025 15:30 Abs. NRBC 0.0 k/mm3 ()?? 07/07/2025 15:30 Abs. Neut 5.7 k/mm3 ()?? 07/07/2025 15:30 Abs. Lymph 1.9 k/mm3 ()?? 07/07/2025 15:30 Abs. [place] 0.8 k/mm3 ()?? 07/07/2025 15:30 Abs. Eo 0.2 k/mm3 ()?? 07/07/2025 15:30 Abs. Baso 0.0 k/mm3 ()?? 07/07/2025 15:30 Neut % 66.2 % ()?? 07/07/2025 15:30 Lymph % 22.3 % ()?? 07/07/2025 15:30 [place] % 8.7 % ()?? 07/07/2025 15:30 Eos % 1.9 % ()?? 07/07/2025 15:30 Baso % 0.3 % ()?? 07/07/2025 15:30 Imm Gran 0.6 % ()?? 07/07/2025 15:30 Abs. Imm Gran 0.1 k/mm3 ()?? 07/07/2025 15:30 ?? CARDIAC High Sensitivity Troponin (HSTnT) 14 ng/L (High)?? 07/08/2025 01:29 ?? CHEM GENERAL Sodium 139 mmol/L ()?? 07/07/2025 15:30 Potassium 4.7 mmol/L ()?? 07/07/2025 19:00 Chloride 98 mmol/L ()?? 07/07/2025 15:30 Bicarbonate Level 31 mmol/L (High)?? 07/07/2025 15:30 Anion Gap 10 mmol/L ()?? 07/07/2025 15:30 Glucose Level 82 mg/dL ()?? 07/07/2025 15:30 Glucose, POC 129 mg/dL (High)?? 07/07/2025 21:28 BUN 22 mg/dL ()?? 07/07/2025 15:30 Creatinine-Blood 0.96 mg/dL ()?? 07/07/2025 15:30 Estimated GFR Creatinine 62 ML/MIN/1.73 M2 ()?? 07/07/2025 15:30 Calcium 9.2 mg/dL ()?? 07/07/2025 15:30 ?? UA/URINALYSIS Appear/Color, Urine COLORLESS ()?? 07/07/2025 14:31 Specific [place], Urine 1.008 ()?? 07/07/2025 14:31 pH, Urine 6.0 ()?? 07/07/2025 14:31 Albumin, Urine NEGATIVE ()?? 07/07/2025 14:31 Glucose, Urine NEGATIVE ()?? 07/07/2025 14:31 Ketones, Urine NEGATIVE ()?? 07/07/2025 14:31 Bilirubin, Urine NEGATIVE ()?? 07/07/2025 14:31 Hemoglobin, Urine NEGATIVE ()?? 07/07/2025 14:31 Nitrite, Urine NEGATIVE ()?? 07/07/2025 14:31 Leukocyte, Urine TRACE (Abnormal)?? 07/07/2025 14:31 Urobilinogen NORMAL mg/dL ()?? 07/07/2025 14:31 WBC's, Urine 7 /HPF (High)?? 07/07/2025 14:31 RBC's, Urine NONE SEEN /HPF ()?? 07/07/2025 14:31 Bacteria SLIGHT HPF (Abnormal)?? 07/07/2025 14:31 Squamous Epith <1 /HPF () 07/07/2025 14:31 Mucus SLIGHT /LPF ()?? 07/07/2025 14:31 Hold Urine Culture Testing available 48 hours from time of collection. ()?? 07/07/2025 14:31 ?? VIROLOGY Influenza A PCR NEGATIVE ()?? 07/07/2025 15:30 Influenza B PCR NEGATIVE ()?? 07/07/2025 15:30 RSV PCR NEGATIVE ()?? 07/07/2025 15:30 Adenovirus by PCR NEGATIVE ()?? 07/07/2025 15:30 Coronavirus 229E by PCR (not COVID-19) NEGATIVE ()?? 07/07/2025 15:30 Coronavirus HKU1 by PCR (not COVID-19) NEGATIVE ()?? 07/07/2025 15:30 Coronavirus NL63 by PCR (not COVID-19) NEGATIVE ()?? 07/07/2025 15:30 Coronavirus OC43 by PCR (not COVID-19) NEGATIVE ()?? 07/07/2025 15:30 Human Metapneumovirus by PCR NEGATIVE ()?? 07/07/2025 15:30 Rhinovirus/Enterovirus by PCR NEGATIVE ()?? 07/07/2025 15:30 Influenza A by PCR NEGATIVE ()?? 07/07/2025 15:30 Influenza B by PCR NEGATIVE ()?? 07/07/2025 15:30 Parainfluenza 1 by PCR NEGATIVE ()?? 07/07/2025 15:30 Parainfluenza 2 by PCR NEGATIVE ()?? 07/07/2025 15:30 Parainfluenza 3 by PCR NEGATIVE ()?? 07/07/2025 15:30 Parainfluenza 4 by PCR NEGATIVE ()?? 07/07/2025 15:30 RSV by PCR NEGATIVE ()?? 07/07/2025 15:30 Bordetella Pertussis by PCR NEGATIVE ()?? 07/07/2025 15:30 Chlamydophila Pneumoniae by PCR NEGATIVE ()?? 07/07/2025 15:30 Mycoplasma Pneumoniae by PCR NEGATIVE ()?? 07/07/2025 15:30 COVID-19 PCR Specimen Source NASAL ()?? 07/07/2025 15:30 COVID-19 PCR Result NEGATIVE ()?? 07/07/2025 15:30 COVID-19 (SARS-CoV-2) by PCR NEGATIVE ()?? 07/07/2025 15:30 Bordetella Parapertussis by PCR NEGATIVE ()?? 07/07/2025 15:30 ? EKG study * Event Display: EKG Authored Date: * Event Display: ECG 12-Lead Authored Date: Please click on pdf link to open report * Event Display: ECG 12-Lead Authored Date: Ventricular Rate: 56 BPM QRS Duration: 108 ms Q-T Interval: 426 ms QTC Calculation(Bazett): 411 ms R Bunola: -23 degrees T Bunola: 16 degrees Sinus rhythm with 1st degree A-V block Low voltage QRS Nonspecific T wave abnormality Abnormal ECG When compared with ECG of 25-Jan-2025 13:39, Nonspecific T wave abnormality now evident in Anterolateral leads Confirmed by Branden Menendez ([id number]) on 07/07/2025 4:07:10 PM Eckerman: Branden Menendez Heart * Event Display: Echocardiogram - Complete Authored Date: Transthoracic Echocardiography Report (TTE) Patient Demographics Patient Name TONJA KELLOGG Date of Study 07/08/2025 Corporate Gender Female Facility Race Ethnicity Date of 1950 Height: 62.99 inches Age 74 year(s) Weight: 291.01 pounds Accession Number [id number] BSA: 2.27 m2 Room Number [id number] BMI: 51.56 kg/m2 Referring Physician Unassigned Interpreting Barb Pate MD Unassigned Physician Inclusion Teacher Banner Qiwen Indications Syncope. Clinical History Hypertension. KYLER Obesity HFpEF COPD Hyperlipidemia. Study Data Type of Study TTE procedure:Echo Complete-(Doppler, Colorflow) with Contrast. Procedure Information:Definity was administered by [employer] . Study Date07/08/2025 Start Time: 12:51 PM Study Location: [facility] Adult Echo Study Status: Echo lab Patient Status: Routine Technical Quality: Technically difficult due to body habitus. Blood Pressure:111/69 mmHg EKG: Normal sinus rhythm HR: 60 bpm Contrast Medium: Definity. Amount - 2 ml Allergies - Aspirin. - Codeine. 2D Measurements LV Diastolic Dimension: 4.9 cm LV Systolic Dimension: 3.2 cm LV Septum Diastolic: 1 cm LV PW Diastolic: 1 cm AO Root Dimension: 2.9 cm LA Dimension: 3.2 cm LA ESV (BP):37.3 ml LVOT Stroke Volume: 68.01 ml LA ESV Index: 16 ml/m2 Stroke Volume Index29.96 ml/m2 LVOT: 1.9 cm Cardiac Index:1.8 l/min/m2 Ascending Aorta:3.6 cm Doppler Measurements AV Peak Velocity: 173 cm/s MV Peak E-Wave: 46.7 cm/s AV Peak Gradient: 11.97 mmHg MV Peak A-Wave: 52.7 cm/s AV Mean Gradient: 6 mmHg MV E/A Ratio: 0.89 AV VTI:38.3 cm LVOT Peak Velocity: 108 cm/s LVOT VTI24 cm MV Deceleration Time: 282 msec AV Area (Continuity):1.78 cm2 TR Velocity:201 cm/s PV Peak Velocity: 97.7 cm/s TR Gradient:16.16 mmHg PV Peak Gradient: 3.82 mmHg Estimated RAP:3 mmHg Estimated RVSP: 19.2 mmHg E' Septal Velocity: 5.33 cm/s E' Lateral Velocity: 12.6 cm/s E/Med E':[id number] E/Lat E':[id number] Cardiac Anatomy Left Ventricle/Interventricular Septum Normal LV systolic function (EF 60-65%). No significant regional wall motion abnormalities. Normal LV diastolic function. Normal LV cavity size. Normal LV wall thickness. Left Atrium/Interatrial Septum Normal size LA. Aortic Valve Aortic annular calcification. Mildly thickened and calcified aortic valve. No significant aortic regurgitation. No significant aortic stenosis. Mitral Valve No significant structural abnormalities of the mitral valve. Trace mitral regurgitation. Aorta Normal size aortic root and ascending aorta. Right Ventricle Normal RV systolic function. Normal RV size. Right Atrium Normal size RA. Pulmonic Valve Poorly visualized pulmonic valve. Tricuspid Valve No significant structural abnormalities of the tricuspid valve. No significant tricuspid regurgitation. Pumonary Artery Normal estimated PA systolic pressure. Venous Structures Normal size IVC with normal respiratory variation (suggesting normal right atrial/central venous pressure). Pericardium/Extracardiac No significant pericardial effusion. Summary Normal LV systolic function (EF 60-65%). No significant regional wall motion abnormalities. Normal LV diastolic function. Normal LV cavity size. Normal LV wall thickness. Normal RV systolic function. Normal RV size. Aortic sclerosis without stenosis. Comparison Comparison is made to the study of May 28, 2024. No significant change. Signature * Event Display: Echocardiogram - Complete Authored Date: Procedure * Event Display: Cardiac Rhythm Strips Authored Date: Hospital Progress note * Peter POWELL, [facility]: PERFORM, MODIFY Event Display: Progress Note Hospital Authored Date: [id number] Patient: ??BESS, TONJA ? Age:??74 Years?Sex:??Female?:??1950?? Assessment/Plan ?? Patient seen and examined, chart reviewed. ??She is a very poor historian??currently on 3 L/min of O2 which is usual for her. She tells me that she has a remote history of seizures, many years ago??but not able to elaborate more??on this.?? She was??evaluated??by neurology in January for right sided weakness and suspected stroke; MRI could not be??done at that time sec to body habitus.. orthostatic vital signs neg, but soft BP to start (systolic 98 supine)- Bp has been stable though in the low 100's ?? wbc 7/HPF in urine, but denies urinary symptoms,?? urine cult has been sent, but??no indication to treat at this time; ?? Concerns for CO2 retention in view of Obesity, and KYLER as well as treatment with narcotics, that may have contributed to unresponsiveness - Check ABG??(none available in records) - continue to use CPAP during the night, and naps during the day - Aim for O2 sat 88-92% for now - Continue with??telemetry monitoring currently in regular sinus rhythm with first-degree AV block few PVCs - Would check CT head and EEG - Follow-up echocardiogram. Note * Lynne Ayala LPN: PERFORM Event Display: Discharge/Transfer Note Hospital Authored Date: [id number] Nursing Discharge Note Entered On: 07/09/2025 13:27 EDT Performed On: 07/09/2025 17:22 EDT by Lynne Ayala LPN Nursing Discharge Note 2 Discharge Time : 07/09/2025 17:22 EDT Discharge Level of Care at Discharge : long term facility Discharge Nursing Homes/Rehab Facilities : [facility] Patient Left Unit Via : Ambulance Patient Accompanied Off Unit with : Ambulance/Chair Van Personnel Handover Given to Transport Personnel : Yes DC Instructions Provided & Signed by Pt : Yes Patient Understands D/C Instructions : Yes Patient Instructions Discharge Signed : Yes Did Pt have Specialty Bed or Wound Vac : No Lynne Ayala LPN - 07/09/2025 17:25 EDT * My POWELL, Yulisa: PERFORM Event Display: Discharge/Transfer Note Hospital Authored Date: [id number] Patient: ??BESS, TONJA ? Age:??74 Years?Sex:??Female?:??1950?? Patient Information Discharge Location: [facility] Primary Care Physician: Conrado Melendez MD Admit Date/Time: 07/07/2025 12:11 Discharge Disposition Discharge Disposition: Prison Facility/Rehab Discharge Diagnosis General medical ([id number]) Syncope (R55) KYLER (obstructive sleep apnea) (G47.33) Anxiety and depression (F41.9) Neuropathy (G62.9) Diabetes (E11.9) CHF (congestive heart failure) (I50.9) _ Discharge Medications Albuterol (Ventolin HFA 108 mcg/inh inhalation aerosol with adapter)??2 puff(s) Inhalation as needed Wheezing/Shortness of Breath EVERY 4 TO 6 HOURS NEEDED Atorvastatin (atorvastatin 40 mg oral tablet)??1 tab(s) 40 Milligram By Mouth Daily BuPROpion (buPROPion 100 mg/12 hours (SR) oral tablet, extended release)??100 Milligram By Mouth Daily Cephalexin (cephalexin monohydrate 500 mg oral capsule)??500 Milligram By Mouth 2 times a day for 3Days Cetirizine (cetirizine 10 mg oral tablet)??1 tab(s) 10 Milligram By Mouth Daily Docusate (docusate sodium 100 mg oral capsule)??1 capsule 100 Milligram By Mouth Daily as needed asneeded for constipation empagliflozin (Jardiance 10 mg oral tablet)??1 tab(s) 10 Milligram By Mouth Daily in AM Fluticasone Nasal (fluticasone 50 mcg/inh nasal spray)??1 spray(s) Nares, Both 2 times a day fluticasone-vilanterol (Breo Ellipta 100 mcg-25 mcg/inh inhalation powder)??INHALE 1 PUFF EVERY DAYAT THE SAME TIME EACH DAY Gabapentin (gabapentin 800 mg oral tablet)??1 tab(s) 800 Milligram By Mouth 3 times a day Levothyroxine (Synthroid Tablet)??50 Microgram By Mouth Daily Metformin (metFORMIN 500 mg oral tablet)??1 tab(s) 500 Milligram By Mouth 2 times a day Metolazone (metolazone 2.5 mg oral tablet)??2.5 Milligram 1 tablet By Mouth Every 14 days as neededPlease take 45 minutes before morning if you have noticed ??the weight gain- 3lb in a single day or5lb over a period of 5 days-- and notify your PCP or cardiology Other Montelukast (montelukast 10 mg oral tablet)??10 Milligram 1 tablet By Mouth Daily at bedtime Omeprazole (omeprazole 20 mg oral enteric coated tablet)??1 tab(s) 20 Milligram By Mouth Daily Oxycodone / Acetaminophen (acetaminophen-oxycodone 325 mg-7.5 mg oral tablet)??1 tab(s) By Mouth 3 times a day as needed Pain , Severe Potassium Chloride (Potassium Chloride (Ryb-Vwal-Xfl M20) 20 mEq oral tablet, extended release)??2 tab(s) 40 Milliequivalent By Mouth 2 times a day Pregabalin (pregabalin 150 mg oral capsule)??1 capsule 150 Milligram By Mouth 3 times a day Senna (Senna-Time 8.6 mg oral tablet)??2 tab(s) 17.2 Milligram By Mouth Daily at bedtime as needed as needed for constipation Spironolactone (spironolactone 25 mg oral tablet)??25 Milligram 1 tablet By Mouth Daily Tamsulosin (tamsulosin 0.4 mg oral capsule)??0.4 Milligram 1 capsule By Mouth Daily Topiramate (topiramate 50 mg oral tablet)??1 tab(s) 50 Milligram By Mouth 2 times a day torsemide (torsemide 20 mg oral tablet)??3 tab(s) 60 Milligram By Mouth 2 times a day Venlafaxine (venlafaxine 150 mg oral capsule, extended release)??1 capsule 150 Milligram By Mouth Daily takes with 75mg daily total 225mg Venlafaxine (venlafaxine 75 mg oral tablet)??1 tab(s) 75 Milligram See Instructions take with the 150mg for 225 mg ? Discharge Medications New BuPROpion (buPROPion 100 mg/12 hours (SR) oral tablet, extended release)100 Milligram Oral Daily. Unchanged Albuterol (Ventolin HFA 108 mcg/inh inhalation aerosol with adapter)2 puff(s) Inhalation as needed Wheezing/Shortness of Breath. EVERY 4 TO 6 HOURS NEEDED. Atorvastatin (atorvastatin 40 mg oral tablet)1 tab(s) Oral Daily. Cephalexin (cephalexin monohydrate 500 mg oral capsule)500 Milligram Oral twice a day for 3 Days. Cetirizine (cetirizine 10 mg oral tablet)1 tab(s) Oral Daily. Docusate (docusate sodium 100 mg oral capsule)1 capsule Oral Daily as needed as needed for constipation. empagliflozin (Jardiance 10 mg oral tablet)1 tab(s) Oral Daily in the morning. Fluticasone Nasal (fluticasone 50 mcg/inh nasal spray)1 spray(s) Nares, Both twice a day. fluticasone-vilanterol (Breo Ellipta 100 mcg-25 mcg/inh inhalation powder)INHALE 1 PUFF EVERY DAY AT THE SAME TIME EACH DAY. Gabapentin (gabapentin 800 mg oral tablet)1 tab(s) Oral 3 times a day. Levothyroxine (Synthroid Tablet)50 Microgram Oral Daily. Metformin (metFORMIN 500 mg oral tablet)1 tab(s) Oral twice a day. Metolazone (metolazone 2.5 mg oral tablet)1 tab(s) Oral Every 14 days as needed Other. Please take 45 minutes before morning if you have noticed the weight gain- 3lb in a single day or 5lb over a period of 5 days-- and notify your PCP or cardiology. Refills: 0. Montelukast (montelukast 10 mg oral tablet)1 tab(s) Oral Daily at Bedtime. Omeprazole (omeprazole 20 mg oral enteric coated tablet)1 tab(s) Oral Daily. Oxycodone / Acetaminophen (acetaminophen-oxycodone 325 mg-7.5 mg oral tablet)1 tab(s) Oral 3 times a day as needed Pain , Severe. Potassium Chloride (Potassium Chloride (Ksp-Ozht-Bmx M20) 20 mEq oral tablet, extended release)2 tab(s) Oral twice a day. Pregabalin (pregabalin 150 mg oral capsule)1 capsule Oral 3 times a day. Senna (Senna-Time 8.6 mg oral tablet)2 tab(s) Oral Daily at Bedtime as needed as needed for constipation. Spironolactone (spironolactone 25 mg oral tablet)1 tab(s) Oral Daily. Tamsulosin (tamsulosin 0.4 mg oral capsule)1 capsule Oral Daily. Topiramate (topiramate 50 mg oral tablet)1 tab(s) Oral twice a day. torsemide (torsemide 20 mg oral tablet)3 tab(s) Oral twice a day. Refills: 0. Venlafaxine (venlafaxine 150 mg oral capsule, extended release)1 capsule Oral Daily. takes with 75mg daily total 225mg. Venlafaxine (venlafaxine 75 mg oral tablet)take with the 150mg for 225 mg. Allergies Allergies ?(Active and Proposed Allergies Only) Melon? (Severity: Unknown severity, Onset: Unknown) ?Reactions: anaphylaxis nonsteroidal anti-inflammatory agents? (Severity: Persistent Moderate, Onset: Unknown) ?Reactions: stomach bleeding codeine? (Severity: Unknown severity, Onset: Unknown) ?Reactions: migraines aspirin? (Severity: Unknown severity, Onset: Unknown) ?Reactions: stomach bleeding ? PCP Follow-Up/Heads-Up Follow-up for reduced responsiveness Future Appointments 2024 1:00 PM EDT ?? Type: XR Barium Swallow Where: [facility] [address] [address]- Status: Pending 2024 1:00 PM EDT ?? Type: Cine/Video Esophogram w/Speech Where: Rehab Adult Aud Status: Pending Objective Assessment and Plan Syncope (R55):? Patient reports episode of reduced responsiveness -- this occurred after receiving opiate pain medication that she normally takes at home, and she was already not using CPAP during naps. Suspect hypercapnia leading to episode, but she has since improved CT head and EEG normal Telemetry monitoring??negative for any clinically significant arrhythmias orthostatics negative Echocardiogram shows aortic sclerosis without stenosis.?? No other acute findings noted Patient has been advised to use her CPAP??even during naps, in addition to during sleep at night PCP follow-up and recommend outpatient Holter monitoring to rule out any clinically significant arrhythmias ?? CHF (congestive heart failure) (I50.9):? Appears euvolemic Continue Aldactone, torsemide ?? Diabetes (E11.9):? Continue home medications on discharge ?? Neuropathy (G62.9):? Continue gabapentin and pregabalin ?? Anxiety and depression (F41.9):? Continue venlafaxine and bupropion ?? KYLER (obstructive sleep apnea) (G47.33):? CPAP at bedtime ? Vital Signs?? Temperature: 98.1 DegF (07/09/25 10:05:00) Temperature Route: Oral (07/09/25 10:05:00) Pulse Rate: 64 bpm (07/09/25 10:05:00) Respiratory Rate: 18 br/min (07/09/25 10:33:00) Respiratory Rate: 18 br/min (07/09/25 10:33:00) Systolic Blood Pressure: 117 mm Hg (07/09/25 10:05:00) Diastolic Blood Pressure: 66 mm Hg (07/09/25 10:05:00) Blood pressure sites: Arm, right (07/09/25 10:05:00) Mean Arterial Pressure: 83 mm Hg (07/09/25 10:05:00) Pulse Pressure: 51 mm Hg (07/09/25 10:05:00) Oxygen Saturation: 100 % (07/09/25 10:05:00) Liters per Minute: 3 L/min (07/09/25 10:05:00) Mode of Delivery (Oxygen): Nasal cannula (07/09/25 10:05:00) Early Warning Score: 0 (07/09/25 11:26:20) ? Mobility & Ambulation Level Mobility & Ambulation Level Ambulatory devices needed: Walker (07/07/25) ?? Therapeutic Activity Therapeutic Activities/Mobility/Balance?? No qualifying data available. ?? . Physical Exam Constitutional: Alert, in no distress. Mental Status: Oriented to person, place and time. Head: Normocephalic. Eyes: Pupils are equal, round and reactive to light. Extraocular muscles intact. Ear, Nose and Throat: Oropharynx clear, mucous membranes moist.?? Neck: Supple, Full range of motion. Respiratory: Clear to auscultation. No wheezing, rales or rhonchi. Cardiovascular: S1 S2 regular. No murmurs, rubs or gallops. Gastrointestinal: Abdomen soft, non-tender, non-distended. Normal bowel sounds. Neurologic: Cranial nerves II-XII grossly intact. power??5/5??x4 Skin: No rashes or lesions. No petechiae or purpura.?? Musculoskeletal: No cyanosis or clubbing. No gross deformities. Normal range of motion. Psychiatric: Normal mood and affect Follow-Up Appointments Added Follow Up ?Time Frame ?Comments Conrado Melendez MD?1 week: call to discuss follow up visit Patient Instructions Please take all medications as previously prescribed Please start using CPAP??even when you are napping during the day Make an appointment to follow-up with your primary care physician after discharge. Post Discharge Care Discharge ?07/09/25 12:52:00 EDT ?Order Comment:?discharge to rehab at 3:30 PM Discharge Prescriptions ?ePrescribed, 07/09/25 12:52:00 EDT ?Order Comment:?? Home Health Face to Face ^HomeHealthFTF Results Discharge Labs BLOOD COUNT & DIFF WBC 6.7 k/mm3 ()?? 07/09/2025 01:22 RBC 4.13 m/mm3 (Low)?? 07/09/2025 01:22 Hgb 11.6 Gm/dL (Low)?? 07/09/2025 01:22 Hct 38.5 % ()?? 07/09/2025 01:22 MCV 93.2 femtoliters ()?? 07/09/2025 01:22 MCH 28.1 pg ()?? 07/09/2025 01:22 MCHC 30.1 Gm/dL (Low)?? 07/09/2025 01:22 Platelet Count 252 k/mm3 ()?? 07/09/2025 01:22 RDW-SD 51.1 femtoliters (High)?? 07/09/2025 01:22 MPV 10.1 femtoliters ()?? 07/09/2025 01:22 Nucleated RBC (Automated) 0.0 #/100 WBC'S ()?? 07/09/2025 01:22 Abs. NRBC 0.0 k/mm3 ()?? 07/09/2025 01:22 Abs. Neut 4.3 k/mm3 ()?? 07/09/2025 01:22 Abs. Lymph 1.5 k/mm3 ()?? 07/09/2025 01:22 Abs. Hamilton 0.6 k/mm3 ()?? 07/09/2025 01:22 Abs. Eo 0.2 k/mm3 ()?? 07/09/2025 01:22 Abs. Baso 0.0 k/mm3 ()?? 07/09/2025 01:22 Neut % 63.8 % ()?? 07/09/2025 01:22 Lymph % 23.2 % ()?? 07/09/2025 01:22 Hamilton % 9.5 % ()?? 07/09/2025 01:22 Eos % 2.7 % ()?? 07/09/2025 01:22 Baso % 0.3 % ()?? 07/09/2025 01:22 Imm Gran 0.5 % ()?? 07/09/2025 01:22 Abs. Imm Gran 0.0 k/mm3 ()?? 07/09/2025 01:22 ?? CARDIAC High Sensitivity Troponin (HSTnT) 13 ng/L ()?? 07/08/2025 06:52 ? CHEM GENERAL Sodium 139 mmol/L ()?? 07/09/2025 01:22 Potassium 3.7 mmol/L ()?? 07/09/2025 01:22 Chloride 99 mmol/L ()?? 07/09/2025 01:22 Bicarbonate Level 30 mmol/L (High)?? 07/09/2025 01:22 Anion Gap 10 mmol/L ()?? 07/09/2025 01:22 Glucose Level 95 mg/dL ()?? 07/09/2025 01:22 Glucose, POC 130 mg/dL (High)?? 07/09/2025 11:00 BUN 21 mg/dL ()?? 07/09/2025 01:22 Creatinine-Blood 0.89 mg/dL ()?? 07/09/2025 01:22 Estimated GFR Creatinine 68 ML/MIN/1.73 M2 ()?? 07/09/2025 01:22 Calcium 8.8 mg/dL ()?? 07/09/2025 01:22 Magnesium 2.4 mg/dL (High)?? 07/09/2025 01:22 AST (SGOT) 14 units/L ()?? 07/08/2025 06:53 ALT (SGPT) 12 units/L ()?? 07/08/2025 06:53 ?? UA/URINALYSIS Appear/Color, Urine COLORLESS ()?? 07/07/2025 14:31 Specific [place], Urine 1.008 ()?? 07/07/2025 14:31 pH, Urine 6.0 ()?? 07/07/2025 14:31 Albumin, Urine NEGATIVE ()?? 07/07/2025 14:31 Glucose, Urine NEGATIVE ()?? 07/07/2025 14:31 Ketones, Urine NEGATIVE ()?? 07/07/2025 14:31 Bilirubin, Urine NEGATIVE ()?? 07/07/2025 14:31 Hemoglobin, Urine NEGATIVE ()?? 07/07/2025 14:31 Nitrite, Urine NEGATIVE ()?? 07/07/2025 14:31 Leukocyte, Urine TRACE (Abnormal)?? 07/07/2025 14:31 Urobilinogen NORMAL mg/dL ()?? 07/07/2025 14:31 WBC's, Urine 7 /HPF (High)?? 07/07/2025 14:31 RBC's, Urine NONE SEEN /HPF ()?? 07/07/2025 14:31 Bacteria SLIGHT HPF (Abnormal)?? 07/07/2025 14:31 Squamous Epith <1 /HPF () 07/07/2025 14:31 Mucus SLIGHT /LPF ()?? 07/07/2025 14:31 Hold Urine Culture Testing available 48 hours from time of collection. ()?? 07/07/2025 14:31 ? VIROLOGY Influenza A PCR NEGATIVE ()?? 07/07/2025 15:30 Influenza B PCR NEGATIVE ()?? 07/07/2025 15:30 RSV PCR NEGATIVE ()?? 07/07/2025 15:30 Adenovirus by PCR NEGATIVE ()?? 07/07/2025 15:30 Coronavirus 229E by PCR (not COVID-19) NEGATIVE ()?? 07/07/2025 15:30 Coronavirus HKU1 by PCR (not COVID-19) NEGATIVE ()?? 07/07/2025 15:30 Coronavirus NL63 by PCR (not COVID-19) NEGATIVE ()?? 07/07/2025 15:30 Coronavirus OC43 by PCR (not COVID-19) NEGATIVE ()?? 07/07/2025 15:30 Human Metapneumovirus by PCR NEGATIVE ()?? 07/07/2025 15:30 Rhinovirus/Enterovirus by PCR NEGATIVE ()?? 07/07/2025 15:30 Influenza A by PCR NEGATIVE ()?? 07/07/2025 15:30 Influenza B by PCR NEGATIVE ()?? 07/07/2025 15:30 Parainfluenza 1 by PCR NEGATIVE ()?? 07/07/2025 15:30 Parainfluenza 2 by PCR NEGATIVE ()?? 07/07/2025 15:30 Parainfluenza 3 by PCR NEGATIVE ()?? 07/07/2025 15:30 Parainfluenza 4 by PCR NEGATIVE ()?? 07/07/2025 15:30 RSV by PCR NEGATIVE ()?? 07/07/2025 15:30 Bordetella Pertussis by PCR NEGATIVE ()?? 07/07/2025 15:30 Chlamydophila Pneumoniae by PCR NEGATIVE ()?? 07/07/2025 15:30 Mycoplasma Pneumoniae by PCR NEGATIVE ()?? 07/07/2025 15:30 COVID-19 PCR Specimen Source NASAL ()?? 07/07/2025 15:30 COVID-19 PCR Result NEGATIVE ()?? 07/07/2025 15:30 COVID-19 (SARS-CoV-2) by PCR NEGATIVE ()?? 07/07/2025 15:30 Bordetella Parapertussis by PCR NEGATIVE ()?? 07/07/2025 15:30 ? Blood Glucose Trend Glucose Level: 95 mg/dL (07/09/25 01:22:00) Glucose, POC:??130 mg/dL??High (07/09/25 11:00:00) Glucose, POC: 83 mg/dL (07/09/25 06:04:00) Glucose, POC:??101 mg/dL??High (07/08/25 21:03:00) Glucose, POC: 95 mg/dL (07/08/25 15:42:00) ? Microbiology ?? COVID-19, RSV, and Flu A/B, Rapid PCR?? Completed?? Source: Nasal Body Site: Nose Collected Dt/Tm: 07/07/2025 13:01 Last Updated Dt/Tm: 07/07/2025 16:35 ? 40??minutes spent on discharge * Lynne Ayala LPN: PERFORM Event Display: Patient Education/Instruction Authored Date: [id number] Inpatient Adult Discharge Instructions. [address] [address] Name: TONJA KELLOGG : 1950?? Visit: 07/07/2025 12:11?? Current Date: 07/09/2025 13:28 ?? Account: [id number]?? Inpatient Adult Discharge Instructions We would like to thank you for allowing us to assist you with your healthcare needs. The following includes patient education materials and information regarding your injury/illness. Our entire staffstrives to provide an excellent experience for our patients and their families. PLEASE ENSURE YOU FOLLOW-UP PER THE INSTRUCTIONS BELOW! ?? YOUR OPINION IS IMPORTANT TO US! Please complete the survey you may receive by mail or email. Your feedback will be used to make improvements to the healthcare experiences of our patients and their families. Surveys are administered by [employer] ?? If further treatment with your primary care physician or another doctor is recommended, it is important for you to keep the appointment. Call your primary care physician or return to the Emergency Department immediately if your condition worsens, fails to improve, or new symptoms develop. If you need to find a doctor, you can call [facility] [employer] for a referral at [phone] or toll free at [phone]) or log in to [email or web address].. ?? [facility], in keeping with [facility] guidance, no longer requires face masks for staff, patientsor visitors in most situations. Similiar to time spent indoors at other locations, there is the chance that you were exposed to repiratory viruses during your time with us (such as flu or COVID-19). If you develop symptoms concerning for a viral respiratory infection, please seek testing (and treatment if indicated) from your medical provider or home test kit. ?? You can view and manage your care through the patient portal or by using a health care bladimir of your choosing. [employer] is a website that allows you to securely view your medical information including your hospital discharge summary, office visit summaries, medications and follow-up visits. You can also request appointments, renew medications, and request access to your medical information using a health care bladimir of your choosing, or just ask a question. You are entitled to know the individuals who participated in your treatment.This information is available within your medical record and will be provided upon your request. You can enroll at [email or web address] or register during your next office visit. You have been discharged from [facility], Patient Care Unit: D3B??. If you have any questions or concerns following your procedure, please call your surgeon?s office for assistance. [facility] Your Care Team Attending Physician Yulisa Pepe MD?? Consulting Providers Yulisa Pepe MD?? Discharging Providers Yulisa Pepe MD Reason for Your Visit syncope?? Your Diagnosis Anxiety and depression CHF (congestive heart failure) Diabetes General medical Neuropathy KYLER (obstructive sleep apnea) Tests Performed Below is a partial list of the tests performed during your hospitalization. You may have had other tests and procedures not included in this list. Please discuss all test results with your provider. ALT AST Basic Metabolic Panel BUN CBC CBC w/ Differential COVID-19, RSV, and Flu A/B, Rapid PCR Creatinine Electrolytes Glucose Level GLUCOSE POC High??Sensitivity??Troponin T Magnesium Level Potassium Level RESP PATH PANEL W/COVID-19 Troponin T, High Sensitivity Urinalysis w/hold for Urine Culture CT Head/Brain W/O Contrast XR Chest 2 Views Frontal and Lat ALT?? AST?? Add On Lab Order (Lab Add On Order)?? BUN?? Basic Metabolic Panel?? CBC?? CBC w/ Differential?? COVID-19, RSV, and Flu A/B, Rapid PCR?? CT Head/Brain W/O Contrast?? Creatinine?? Electrolytes?? Glucose Level?? Glucose POC?? High??Sensitivity??Troponin T (Troponin T, High Sensitivity)?? Magnesium Level?? Potassium Level?? Respiratory Pathogen PCR with COVID-19 (RESP PATH PANEL W/COVID-19)?? Urinalysis w/hold for Urine Culture?? Urine Culture (Urine Culture, Routine)?? Chest 2 Views Frontal and Lat (XR Chest 2 Views Frontal and Lat)?? Primary Care Provider Conrado Melendez MD? Advance Directive Health Care Proxy on File Yes - Health Care Proxy Discharge Vitals Temperature: 98.1 DegF Height: 160 cm Pulse Rate: 64 bpm Weight: 131.6 kg Respiratory Rate: 18 br/min ?? Systolic Blood Pressure: 117 mm Hg ?? Diastolic Blood Pressure: 66 mm Hg ?? Oxygen Saturation: 100 % ?? Studies Pending All studies ordered during this hospital stay have been completed unless listed below. Please discuss all pending results with your provider listed above in these instructions. ?? Add On Lab Order (Lab Add On Order)?? Urine Culture (Urine Culture, Routine)?? What to do next Instructions From Your Doctor Please take all medications as previously prescribed Please start using CPAP??even when you are napping during the day Make an appointment to follow-up with your primary care physician after discharge. ?? Orders? 07/09/25 12:52:00 EDT?? Prescriptions??, ??07/09/25 12:52:00 EDT?? Scheduled Follow-Up Appointments 2024 1:00 PM EDT ?? Type: XR Barium Swallow Where: [facility] [address] [place] [address]- Status: Pending 2024 1:00 PM EDT ?? Type: Cine/Video Esophogram w/Speech Where: Rehab Adult Aud Status: Pending You Need to Schedule the Following Appointments Follow Up with??Conrado Melendez MD When:Within 1 week: call to discuss follow up visit Where:[address] [place] [address] [address] [place] [address]- Discharge Medications TONJA KELLOGG :1950 Visit Date:07/07/2025 Medications: Please continue your medications until treatment is completed or stopped by your provider. Medications not listed below should be discontinued. Discuss any questions related to medications with your provider. What How Much When Instructions Next Dose New BuPROpion (buPROPion 100 mg/ 12 hours (SR) oral tablet, extended release) 100 Milligram Oral Daily Ordering Physician: My POWELL, Yulisa 07/10/25 Unchanged Albuterol (Ventolin HFA 108 mcg/ inh inhalation aerosol with adapter) 2 puff(s) Inhalation As needed for Wheezing/Shortness of Breath Special Instructions: EVERY 4 TO 6 HOURS NEEDED ?? NEEDED FOLLOW PRESCRIBE Unchanged Atorvastatin (atorvastatin 40 mg oral tablet) 1 tab(s) Oral Daily 07/10/25 Unchanged Cephalexin (cephalexin monohydrate 500 mg oral capsule) 500 Milligram Oral Twice a day Duration: 3 Days Ordering Physician: Kiera POWELL, Lorena 07/09/25 EVENING Unchanged Cetirizine (cetirizine 10 mg oral tablet) 1 tab(s) Oral Daily 07/10/25 Unchanged Docusate (docusate sodium 100 mg oral capsule) 1 capsule Oral Daily as needed for as needed for constipation NEEDED FOLLOW PRESCRIBE Unchanged empagliflozin (Jardiance 10 mg oral tablet) 1 tab(s) Oral Daily in the morning 07/10/25 Unchanged Fluticasone Nasal (fluticasone 50 mcg/ inh nasal spray) 1 spray(s) Nares, Both Twice a day 07/09/25 EVENING Unchanged fluticasone-vilanterol (Breo Ellipta 100 mcg-25 mcg/ inh inhalation powder) Special Instructions: INHALE 1 PUFF EVERY DAY AT THE SAME TIME EACH DAY ?? FOLLOW PRESCRIBE Unchanged Gabapentin (gabapentin 800 mg oral tablet) 1 tab(s) Oral 3 times a day 07/09/25 EVENING Unchanged Levothyroxine (Synthroid Tablet) 50 Microgram Oral Daily 07/10/25 Unchanged Metformin (metFORMIN 500 mg oral tablet) 1 tab(s) Oral Twice a day 07/09/25 EVENING Unchanged Metolazone (metolazone 2.5 mg oral tablet) 1 tab(s) Oral Every 14 days as needed for Other Special Instructions: Please take 45 minutes before morning if you have noticed the weight gain- 3lb in a single day or 5lb over a period of 5 days-- and notify your PCP or cardiology Ordering Physician: Cari Danielle MD, Rai ?? NEEDED FOLLOW PRESCRIBE Unchanged Montelukast (montelukast 10 mg oral tablet) 1 tab(s) Oral Daily at Bedtime 07/09/25 DAILY AT BEDTIME Unchanged Omeprazole (omeprazole 20 mg oral enteric coated tablet) 1 tab(s) Oral Daily 07/10/25 Unchanged Oxycodone / Acetaminophen (acetaminophen-oxycodone 325 mg-7.5 mg oral tablet) 1 tab(s) Oral 3 times a day as needed for Pain , Severe NEEDED FOLLOW PRESCRIBE Unchanged Potassium Chloride (Potassium Chloride (Lrn-Sizs-Dve M20) 20 mEq oral tablet, extended release) 2 tab(s) Oral Twice a day 07/09/25 EVENING Unchanged Pregabalin (pregabalin 150 mg oral capsule) 1 capsule Oral 3 times a day 07/09/25 EVENING Unchanged Senna (Senna-Time 8.6 mg oral tablet) 2 tab(s) Oral Daily at Bedtime as needed for as needed for constipation NEEDED FOLLOW PRESCRIBE Unchanged Spironolactone (spironolactone 25 mg oral tablet) 1 tab(s) Oral Daily 07/10/25 Unchanged Tamsulosin (tamsulosin 0.4 mg oral capsule) 1 capsule Oral Daily 07/10/25 Unchanged Topiramate (topiramate 50 mg oral tablet) 1 tab(s) Oral Twice a day 07/09/25 EVENING Unchanged torsemide (torsemide 20 mg oral tablet) 3 tab(s) Oral Twice a day Ordering Physician: Cari Danielle MD, Rai 07/09/25 EVENING Unchanged Venlafaxine (venlafaxine 150 mg oral capsule, extended release) 1 capsule Oral Daily Special Instructions: takes with 75mg daily total 225mg ?? 07/10/25 Unchanged Venlafaxine (venlafaxine 75 mg oral tablet) See instructions Special Instructions: take with the 150mg for 225 mg ?? SEE INSTRUCTIONS Prescription Given During Visit No new medications prescribed at time of discharge.?? Laboratory Results Below is a partial list of the most recent Laboratory test results done prior to this discharge. You may have had other tests and procedures not included in this list. Please discuss all test resultswith your provider. ALT (07/08/2025) ???ALT (SGPT) - 12 units/L AST (07/08/2025) ???AST (SGOT) - 14 units/L Basic Metabolic Panel (07/09/2025) ???Sodium - 139 mmol/L???Potassium - 3.7 mmol/L???Chloride - 99 mmol/L???Bicarbonate Level - 30 mmol/L???Anion Gap - 10 mmol/L???Glucose Level - 95 mg/dL???BUN - 21 mg/dL???Creatinine-Blood - 0.89 mg/dL???Estimated GFR Creatinine - 68 ML/MIN/1.73 M2???Calcium - 8.8 mg/dL BUN (07/08/2025) ???BUN - 21 mg/dL CBC (07/08/2025) ???WBC - 7.2 k/mm3???RBC - 4.05 m/mm3???Hgb - 11.5 Gm/dL???Hct - 37.6 %???MCV - 92.8 femtoliters???MCH - 28.4 pg???MCHC - 30.6 Gm/dL???Platelet Count - 231 k/mm3???RDW-SD - 50.4 femtoliters???MPV - 10.1 femtoliters???Nucleated RBC (Automated) - 0.0 #/100 WBC'S???Abs. NRBC - 0.0 k/mm3 CBC w/ Differential (07/09/2025) ???WBC - 6.7 k/mm3???RBC - 4.13 m/mm3???Hgb - 11.6 Gm/dL???Hct - 38.5 %???MCV - 93.2 femtoliters???MCH - 28.1 pg???MCHC - 30.1 Gm/dL???Platelet Count - 252 k/mm3???RDW-SD - 51.1 femtoliters???MPV - 10.1 femtoliters???Nucleated RBC (Automated) - 0.0 #/100 WBC'S???Abs. NRBC - 0.0 k/mm3???Abs. Neut - 4.3 k/mm3???Abs. Lymph - 1.5 k/mm3???Abs. Hamilton - 0.6 k/mm3???Abs. Eo - 0.2 k/mm3???Abs. Baso - 0.0 k/mm3???Neut % - 63.8 %???Lymph % - 23.2 %???Hamilton % - 9.5 %???Eos % - 2.7 %???Baso % - 0.3 %???Imm Gran - 0.5 %???Abs. Imm Gran - 0.0 k/mm3 COVID-19, RSV, and Flu A/B, Rapid PCR (07/07/2025) ???Influenza A PCR - NEGATIVE???Influenza B PCR - NEGATIVE???RSV PCR - NEGATIVE???COVID-19 PCR Specimen Source - NASAL???COVID-19 PCR Result - NEGATIVE Creatinine (07/08/2025) ???Creatinine-Blood - 0.88 mg/dL???Estimated GFR Creatinine - 69 ML/MIN/1.73 M2 Electrolytes (07/08/2025) ???Sodium - 136 mmol/L???Potassium - 3.8 mmol/L???Chloride - 98 mmol/L???Bicarbonate Level - 28 mmol/L???Anion Gap - 10 mmol/L Glucose Level (07/08/2025) ???Glucose Level - 88 mg/dL GLUCOSE POC (07/09/2025) ???Glucose, POC - 130 mg/dL High??Sensitivity??Troponin T (07/08/2025) ???High Sensitivity Troponin (HSTnT) - 14 ng/L Magnesium Level (07/09/2025) ???Magnesium - 2.4 mg/dL Potassium Level (07/07/2025) ???Potassium - 4.7 mmol/L RESP PATH PANEL W/COVID-19 (07/07/2025) ???Adenovirus by PCR - NEGATIVE???Coronavirus 229E by PCR (not COVID-19) - NEGATIVE???Coronavirus HKU1 by PCR (not COVID-19) - NEGATIVE???Coronavirus NL63 by PCR (not COVID-19) - NEGATIVE???Coronavirus OC43 by PCR (not COVID-19) - NEGATIVE???Human Metapneumovirus by PCR - NEGATIVE???Rhinovirus/Enterovirus by PCR - NEGATIVE???Influenza A by PCR - NEGATIVE???Influenza B by PCR - NEGATIVE???Parainfluenza 1 by PCR - NEGATIVE???Parainfluenza 2 by PCR - NEGATIVE???Parainfluenza 3 by PCR - NEGATIVE???Parainfluenza 4 by PCR - NEGATIVE???RSV by PCR - NEGATIVE???Bordetella Pertussis by PCR - NEGATIVE??? Chlamydophila Pneumoniae by PCR - NEGATIVE???Mycoplasma Pneumoniae by PCR - NEGATIVE???COVID-19 (SARS-CoV-2) by PCR - NEGATIVE???Bordetella Parapertussis by PCR - NEGATIVE Troponin T, High Sensitivity (07/08/2025) ???High Sensitivity Troponin (HSTnT) - 13 ng/L Urinalysis w/hold for Urine Culture (07/07/2025) ???Appear/Color, Urine - COLORLESS???Specific [place], Urine - 1.008???pH, Urine - 6.0???Albumin, Urine - NEGATIVE???Glucose, Urine - NEGATIVE???Ketones, Urine - NEGATIVE???Bilirubin, Urine - NEGATIVE???Hemoglobin, Urine - NEGATIVE???Nitrite, Urine - NEGATIVE???Leukocyte, Urine - TRACE???Urobilinogen - NORMAL???WBC's, Urine - 7 /HPF???RBC's, Urine - NONE SEEN???Bacteria - SLIGHT???Squamous Epith - <1 /HPF Mucus - SLIGHT Hold Urine Culture - Testing available 48 hours from time of collection. Allergies (NKA means No Known Allergies) nonsteroidal anti-inflammatory agents (Persistent Moderate)??stomach bleeding Melon??anaphylaxis aspirin??stomach bleeding codeine??migraines Problems Active Problems??(20) Chronic depression?? Chronic heart failure with preserved ejection fraction (HFpEF)?? Chronic hypoxic respiratory failure?? COPD - Chronic obstructive pulmonary disease?? COPD type A?? COVID-19?? Diagnostic colonoscopy?? Fall at home?? Hemorrhoid?? Hyperlipidemia?? Hypertension?? Hypothyroid?? IGT - Impaired glucose tolerance?? Localized osteoarthritis?? Neuropathy?? Obstructive sleep apnea syndrome?? KYLER on CPAP?? Painless rectal bleeding?? Peptic ulcer with hemorrhage?? Severe obesity?? Education Materials Below is the list of Educational Leaflet Providered with your Discharge Instructions. Valuables and Belongings I fully understand and agree that [facility] accepts no responsibility for all my personal property including clothing, toilet articles, radios, jewelry, dentures, hearing aids, rings, money, or any other property that is in my possession or is brought to me after admission. I understand certain valuables may be placed in a hospital safe for a short period of time. I understand that the hospital is not liable for loss or damage due to accident, fire, or other natural occurrence while said property is in the safe. I accept full responsibility for any personal property that I keep with me, and will not hold the hospital responsible in case of loss or disappearance. I acknowledge that i have been encouraged to send valuables and belongings home. ?? Review of Valuable and Belonging List: With patient Date for Pt to Sign Valuables/Belongings: 07/07/25 20:27:00 ?? Other Discharge Information ? Case Management Discharge Plan?? Discharge Plan?? Discharge Agency Information?? Discharge Level of Care at Discharge: long term facility Name of Agency [facility]1: [facility] Discharge Transportation Arranged: [facility] [phone] [facility] [phone] Service Categories #1: Physical Therapy, Prison Mode of Transportation Arranged: Ambulance Service Comments #1: DC to rehab today via ambulance Discharge Arranged Transport Date/Time: 07/09/25 16:00:00 ?? Discharge Nursing Homes/Rehab Facilities: [facility] ? Pulmonary Rehab Status?? Pulmonary Rehab Discharge Status?? CPAP/BiPAP Mask Type: Full CPAP/BiPAP Mask Size: Medium Respiratory Rate: 18 br/min ? Common Emergency Awareness Tips IS IT A STROKE? Act FAST and Check for these signs: FACE Does the face look uneven? ARM Does one arm drift down? SPEECH Does their speech sound strange? TIME Call at any sign of stroke ?? Heart Attack Signs Chest discomfort: Most heart attacks involve discomfort in the center of the chest and lasts more than a few minutes, or goes away and comes back. It can feel like uncomfortable pressure, squeezing, fullness or pain. Discomfort in upper body: Symptoms can include pain or discomfort in one or both arms, back, neck, jaw or stomach. Shortness of breath: With or without discomfort. Other signs: Breaking out in a cold sweat, nausea, or lightheaded. Remember, MINUTES DO MATTER. If you experience any of these heart attack warning signs, call to get immediate medical attention! ?? Smoking can increase your chances of developing chronic health problems and can cause harmful effects to other family members in your house. If you smoke, you are strongly encouraged to quit. Please call [facility] at [phone] or [phone] ([phone]) or log in to [email or web address] for referrals to smoking cessation programs. ?? 640 Suicide & Crisis Lifeline is available 05/06 if you or someone you know needs to find a reason to keep living. By calling 952 you'll be connected to a skilled, trained counselor at a crisis center in your area. INPATIENT DISCHARGE INSTRUCTIONS SIGNATURE PAGE TONJA KELLOGG Location:[facility] Registration Date and Time:07/07/2025 12:11 EDT Primary Care Physician: Conrado Melendez MD, Attending Physician: My POWELL, Yulisa, I TONJA KELLOGG, have received the above patient education materials/instructions and have verbalized understanding. If ambulance or transport services are being used I further acknowledge beinggiven a choice of service. ?? If you need to contact me, please call me at this number: . Patient/Ammonia Box Operator Name: Patient/Ammonia Box Operator Signature: Relationship to Patient: Witness Name/Signature: Date: Patient Care team information Care Team Personnel Name: Larisa Alba RN Position: [facility] RN Member Role: Primary Care Nurse Name: Winnie Gonzalez RN Position: [facility] RN Member Role: Primary Care Nurse Name: Aly Torres RN Position: [facility] RN Member Role: Primary Care Nurse Name: Bryan Rodriguez RN Position: [facility] RN Member Role: Primary Care Nurse Name: Boom Saunders RN Position: [facility] RN Member Role: Primary Care Nurse Name: Brenna Garay RN Position: [facility] RN Member Role: Primary Care Nurse Name: Naa Ko RN Position: [facility] SN RN Member Role: Primary Care Nurse Name: Pastora Lopez RN Position: [facility] RN Member Role: Primary Care Nurse Name: Conrado Melendez MD Position: [facility] Outreach Member Role: PCP Address: [address] [place] [id number] Telecom: Name: Leon Moser Position: [facility] RN Member Role: Primary Care Nurse Name: Roxana Lim Position: [facility] Outreach Member Role: [employer] Consulting Physician Name: Lynne Ayala LPN Position: [facility] RN Member Role: Primary Care Nurse Name: Pilar Isaac RN Position: [facility] RN Member Role: Primary Care Nurse Care Team Related Persons Name: DAQUAN GREENBERG Name: JASON AGUIRRE Name: JASON AGUIRRE CRYPTOLOGIST Name: CANDI KELLOGG JR Name: RAYSHAWN MARINO Insurance Providers Guarantor name: TONJA Chogger Plan Information #: 1 Payer: [facility] [employer] Payer Identifier: NA Member Number: [id number] Group Number: [id number] Subscriber Identifier: [id number] Relationship to Subscriber: self Coverage Type: Medicare Managed Care (Includes Medicare Advantage Plans) Coverage Verification Date: NA Telecom: NA Address: NA
--- NOTE | 2025-07-10 13:30 | A.OFFVIS_ITS ---
Intake Visit Reasons: 6m/ sz Accompanied by: Family/Other Allergies No Known Allergies Allergy (Verified 07/10/25 13:39) Medication List - Last Reconciled 07/10/25 by Ana Cristina Martinez CNP atorvastatin 40 mg PO DAILY bupropion HCl SR 100 mg PO QAM cetirizine 10 mg PO DAILY PRN empagliflozin (Jardiance) 10 mg PO DAILY fluticasone furoate-vilanterol 100-25 mcg/dose inhalation fluticasone propionate 50 mcg/actuation sprays intranasal gabapentin 800 mg PO TID levothyroxine 50 mcg PO DAILY melatonin 6 mg PO DAILY metformin 500 mg PO BID montelukast 10 mg PO DAILY omeprazole 20 mg PO DAILY oxycodone-acetaminophen 7.5-325 mg (Percocet) 1 tab PO TID PRN potassium chloride ER 20 mEq PO QID pregabalin 150 mg PO TID spironolactone 50 mg PO DAILY tamsulosin mg PO topiramate 50 mg PO BID torsemide 60 mg PO BID umeclidinium 62.5 mcg/actuation (Incruse Ellipta) 1 inh inhalation DAILY venlafaxine 75 mg PO DAILY venlafaxine ER 150 mg PO DAILY HPI Comments Details: She has been living [facility] facility ([facility]) since 01/2025. She rep orts having a stroke in 01/2025 and being [place] [facility] [place] Her niece apparently found her in bed unresponsive and she did not make sense when talking. There are no records available for review at this time. She was [place] [facility] [place] [place] [facility] [place] where she has been living since 01/2025. There was no diagnosis of stroke on paperwork sent from nursing facility and reason for transfer was noted as altered mental status. She reports increased right sided weakness after this. She was walking some, using walker. She had an episode earlier this month where she was apparently found unresponsive for a few minutes after ?falling asleep without oxygen and was seen [place] [facility] [place] No records were available for review at this time. Still gets tremors all over on occasion for few minutes. No functional impairment. No difficulty eating, drinking, or swallowing. No definite seizures. Few hospitalizations for CHF exacerbations. Fell and hit head at home on 03/30/2024 and seen at [facility] [place], suspected to have passed out from low oxygen. She uses O2 NC continuously and did not have oxygen on at the time. Balance has gotten worse. Has some tremors. Generalized body pains with pain in shoulders, arms, and knees. Some muscle cramps in feet and legs, jumping in legs. Periods of tremors and shaking. Neurological pain in neck, lower back, mid back, arms, and legs. On gabapentin 800mg TID and maximum tolerated dose of Lyrica. Seizure- like episode with eyes rolling and thrashing in 2020. She reports few episodes where left side was flaccid for up to 3 days, admitted to [facility] and MRI did not show stroke, discharged to rehab. Hx of pulmonary embolism, spine surgery by Dr. Miller 04/2020, and cervical fusion in . [facility] Medical History (Updated 07/10/25 @ 13:38 by Ana Cristina Martinez CNP) Diabetes mellitus Pseudotumor cerebri Lumbar disc disease Glaucoma Depression GERD (gastroesophageal reflux disease) HLD (hyperlipidemia) Hypothyroidism Seizure disorder COPD (chronic obstructive pulmonary disease) Hip arthritis Conversion reaction Cervical disc disease Peripheral neuropathy Fibromyalgia Surgical History (Updated 05/16/25 @ 20:33 by Ana Romero MA) History of lumbar surgery S/P cervical spinal fusion Social History (Updated 05/16/25 @ 20:34 by Ana Romero MA) Patient Tobacco Use Status: Former Tobacco user Review of Systems Const Denies chills, Denies daytime sleepiness, Reports difficulty sleeping, Reports fatigue, Denies fever(s), Denies frequent falls, Reports headache(s), Denies increased appetite, Denies poor appetite, Denies snoring, Denies weakness, Denies weight gain and Denies weight loss Eyes Denies loss of vision ENT Denies vertigo, Reports dizziness, Reports headache(s) and Reports neck pain Card Denies chest pain at rest, Denies chest pain with activity, Denies syncope, Denies leg edema, Denies palpitations, Denies dyspnea and Denies dyspnea on exertion Resp Denies cough, Denies dyspnea, Denies dyspnea on exertion and Denies snoring GI Denies abdominal pain, Denies constipation, Denies heartburn, Denies diarrhea and Denies nausea Denies urinary frequency, Denies urinary incontinence and Denies urinary urgency Musc Reports abnormal gait (balance difficulty), Reports back pain, Reports myalgias, Reports arthralgias, Reports neck pain, Denies numbness and Denies tingling Neuro Reports abnormal gait (balance difficulty), Denies vertigo, Reports dizziness, Denies syncope, Denies frequent falls, Reports headache(s), Denies lack of coordination, Denies loss of vision, Reports memory loss, Denies numbness, Denies Other visual disturbances, Denies restless legs, Denies seizure-like activity, Denies tingling, Denies paresthesias, Reports tremor(s) and Denies weakness Psych Reports anxiety, Reports depression, Denies auditory hallucinations, Reports memory loss and Denies visual hallucinations Endo Reports fatigue and Denies palpitations Physical Exam Const Other: General Appearance:? normal, in no acute distress. Heart:? S1, S2 normal, no murmurs. Lungs:? clear anteriorly and posteriorly. Musculoskeletal:? normal. Extremities:? no edema. Psych:? alert, oriented, cognitive function intact, cooperative with exam, but limited effort on motor testing. Neuro Other: Abnormal Neurological Findings:?Absent ankle reflexes. Submaximal effort on motor exam of BUE and BLE. Very mild hand tremors on sustained posture. No intermittent LLE tremor noted today. In wheelchair. Mental Status: alert and oriented X 3. Normal attention, orientation, memory, and affect. Cranial Nerves: Pupils are equal, round, and reactive to light. External ocular muscles are intact. Visual treviño are full, no ptosis. Face is symmetrical, no facial weakness or droop. Facial sensations are normal. Tongue protrudes in midline. Palate elevates symmetrically. Shoulder shrugging is normal Motor Examination: As above, otherwise normal muscle tone, bulk and strength. No atrophy or fasciculations. No drift of the extended upper extremities. DTR 2+, absent ankle reflexes. Plantars are flexor. Sensory Exam: Normal light touch, temperature, pinprick, vibration, and joint- position sensations. Rhomberg sign is absent. Coordination: No ataxia. No titubation. Gait Exam: In wheelchair. Cerebellar Signs: [id number] is okay. Extrapyramidal System: Tremor as above. No rigidity with normal facial expressions. No bradykinesia. No bradyphrenia. Normal arm swing and posture. No propulsion or retropulsion. Speech: Normal. Results Reviewed Results Reviewed: 08/24/2022 EEG: WNL NCV/EMG LE 02/28/18 Axonal sensory and motor peripheral neuropathy in the lower extremities. Normal EMG in the right L4-S1 innervated muscles. Assessment & Plan Assessment & Plan (1) Seizure disorder: Comment: complicating Myelogram >30 yrs ago Code(s): G40.909 - Epilepsy, unspecified, not intractable, without status epilepticus Category: Medical Plan: Will request [facility] records from 01/2025 and 06/2025. Bring CD of MRI/CT scans to next appointment. Continue gabapentin 800mg 1 tablet three times a day. Continue topiramate 50mg 1 tablet twice a day. (2) Fibromyalgia: Code(s): M79.7 - Fibromyalgia Category: Medical Plan: Continue Lyrica 150mg 1 capsule three times a day. (3) Peripheral neuropathy: Code(s): G62.9 - Polyneuropathy, unspecified Category: Medical Qualifiers: Peripheral neuropathy type: polyneuropathy, unspecified Qualified Code(s): G62.9 - Polyneuropathy, unspecified (4) Cervical disc disease: Comment: and fusion Code(s): M50.90 - Cervical disc disorder, unspecified, unspecified cervical region Category: Medical (5) Conversion reaction: Code(s): F44.9 - Dissociative and conversion disorder, unspecified Category: Medical Plan . Coding Level of Care Code Est Pt Level 4 (00635) Diagnoses Seizure disorder G40.909 Fibromyalgia M79.7 Peripheral polyneuropathy G62.9 Peripheral neuropathy type: polyneuropathy, unspecified Cervical disc disease M50.90 Conversion reaction F44.9
--- OUTSIDE RECORDS SUMMARY | 2025-07-10 14:10 | XMS_ITS | Encounter Summary ---
Author Organization [facility] Address [address] [place] [address] Care Team Providers Care Belt Loop Machine Operator Name Role Phone Conrado Melendez MD Primary Care Provider [phone] Encounter Details Date Type Department Care Team (Late Contact Info) Description 04/14/2025 Lab Requisition [facility] - Main Lab [address] [facility] [place] [address] Conrado Melendez MD [address] [facility] [address] [place], [address] Heart failure, unspecified (CMS/HCC V24, CMS/HCC V28) Social History Tobacco Use Types Packs/Day Years Used Date Smoking Tobacco: Former Cigarettes Q uit: 12/27/1989 Smokeless Tobacco: Never Alcohol Use Standard Drinks/Week Comments No 0 (1 standard drink = 0.6 oz pur e alcohol) Comments Unknown Sex and Gender Information Value Date Recorded Sex Assigned at Not on file Legal Sex Female 3:43 AM EST Gender Identity Not on file Sexual Orientation Not on file documented as of this encounter Plan of Treatment Upcoming Encounters Date Type Department Care Team (Late Contact Info) Description 07/31/2025 10:35 AM EDT Office Visit [facility] [address] [place] [address] Emma Bateman NP [address] [place] [address] 09/10/2025 10:00 AM EDT Ancillary Procedure [facility] [address] [place] [address] documented as of this encounter Procedures Procedure Name Priority Date/Time Associated Diagnosis Comments CBC WITH AUTO DIFFERENTIAL Routine 04/14/2025 8:38 AM EDT Heart failure, unspecified (CMS/HCC V24, CMS/HCC V28) CBC AND DIFFERENTIAL Routine 04/14/2025 8:38 AM EDT Heart failure, unspecified (CMS/HCC V24, CMS/HCC V28) BASIC METABOLIC PANEL Routine 04/14/2025 8:38 AM EDT Heart failure, unspecified (CMS/HCC V24, CMS/HCC V28) documented in this encounter Results * (ABNORMAL) CBC auto differential (04/14/2025 8:38 AM EDT) [facility] WBC 7.3 4.8 - 10.8 K/mcL LAB HEMETOLOGY METHOD 04/14/2025 11:26 AM [facility] RBC 4.40 3.80 - 4.80 M/mcL LAB HEMETOLOGY METHOD 04/14/2025 11:26 AM [facility] Hemoglobin 12.3 11.5 - 16.0 g/dL LAB HEMETOLOGY METHOD 04/14/2025 11:26 AM [facility] LAB Hematocrit 40.6 35.0 - 47.0 % LAB HEMETOLOGY METHOD 04/14/2025 11:26 AM [facility] LAB MCV 92.9 79.0 - 98.0 FL LAB HEMETOLOGY METHOD 04/14/2025 11:26 AM [facility] LAB MCH 28.1 27.0 - 32.0 pcg LAB HEMETOLOGY METHOD 04/14/2025 11:26 AM [facility] LAB MCHC 30.3(L) 32.0 - 37.0 g/dL LAB HEMETOLOGY METHOD 04/14/2025 11:26 AM [facility] RDW 13.5 11.0 - 15.0 % LAB HEMETOLOGY METHOD 04/14/2025 11:26 AM [facility] LAB Platelets 276 130 - 400 K/mcL LAB HEMETOLOGY METHOD 04/14/2025 11:26 AM [facility] LAB MPV 10.7 7.0 - 11.0 FL LAB HEMETOLOGY METHOD 04/14/2025 11:26 AM [facility] LAB NRBC 0.0 <1.0 % LAB HEMETOLOGY METHOD 04/14/2025 11:26 AM [facility] NRBC Absolute 0.00 <0.10 K/mcL LAB HEMETOLOGY METHOD 04/14/2025 11:26 AM [facility] Neutrophils Relative 70.5 % LAB HEMETOLOGY METHOD 04/14/2025 11:26 AM [facility] Lymphocytes Relative 19.4 % LAB HEMETOLOGY METHOD 04/14/2025 11:26 AM [facility] Monocytes Relative 7.7 % LAB HEMETOLOGY METHOD 04/14/2025 11:26 AM [facility] Eosinophils Relative 1.8 % LAB HEMETOLOGY METHOD 04/14/2025 11:26 AM [facility] Basophils Relative 0.3 % LAB HEMETOLOGY METHOD 04/14/2025 11:26 AM [facility] Immature Granulocytes Relative 0.3 % LAB HEMETOLOGY METHOD 04/14/2025 11:26 AM [facility] LAB Neutrophils Absolute 5.13 1.50 - 7.00 K/mcL LAB HEMETOLOGY METHOD 04/14/2025 11:26 AM [facility] LAB Lymphocytes Absolute 1.41 1.00 - 5.00 K/mcL LAB HEMETOLOGY METHOD 04/14/2025 11:26 AM EDT [facility] Monocytes Absolute 0.56 0.20 - 1.00 K/[facility] LAB HEMETOLOGY METHOD 04/14/2025 11:26 AM EDT [facility] Eosinophils Absolute 0.13 0.00 - 0.50 K/[facility] LAB HEMETOLOGY METHOD 04/14/2025 11:26 AM EDT [facility] Basophils Absolute 0.02 0.00 - 0.20 K/[facility] LAB HEMETOLOGY METHOD 04/14/2025 11:26 AM EDT [facility] Immature Granulocytes Absolute 0.02 0.00 - 0.03 K/[facility] LAB HEMETOLOGY METHOD 04/14/2025 11:26 AM T [facility] Blood Venous blood specimen / Unknown Venipuncture / Unknown 04/14/2025 8:38 AM EDT 04/14/2025 10:41 AM EDT us Conrado Melendez MD LAB BLOOD ORDERABLES Final Resul t [facility] [address] [place] [address], [place] [phone] * (ABNORMAL) Basic metabolic panel (04/14/2025 8:38 AM EDT) Sodium 138 133 - 145 mmol/L LAB CHEMISTRY METHOD 04/14/2025 12:34 PM EDT [facility] Potassium 3.9 3.5 - 5.5 mmol/L LAB CHEMISTRY METHOD [facility] Chloride 100 96 - 110 mmol/L LAB CHEMISTRY METHOD 04/14/2025 12:34 PM EDT [facility] CO2 32 21 - 32 mmol/L LAB CHEMISTRY METHOD 04/14/2025 12:34 PM EDT [facility] Anion Gap 6 3 - 11 LAB CHEMISTRY METHOD 04/14/2025 12:34 PM EDT [facility] Glucose 122(H) 70 - 100 mg/dL LAB CHEMISTRY METHOD 04/14/2025 12:34 PM [facility] BUN 22 5 - 25 mg/dL LAB CHEMISTRY METHOD 04/14/2025 12:34 PM [facility] Creatinine 1.15(H) 0.50 - 1.10 mg/dL LAB CHEMISTRY METHOD 04/14/2025 12:34 PM EDT [facility] eGFR 50(L) >=60 mL/min/1. 73m2 LAB CHEMISTRY METHOD 04/14/2025 12:34 PM T [facility] Comment:Calculation based on the Chronic Kidney Disease Epidemiology Collaboration (CKD-EPI) equation refit without adjustment for race. BUN/Creatinine Ratio 19.1 LAB CHEMISTRY METHOD 04/14/2025 12:34 PM EDT [facility] Calcium 8.8 8.5 - 10.5 mg/dL LAB CHEMISTRY METHOD 04/14/2025 12:34 PM [facility] LAB Blood Venous blood specimen / Unknown Venipuncture / Unknown 04/14/2025 8:38 AM EDT 04/14/2025 10:41 AM EDT us Conrado Melendez MD LAB BLOOD ORDERABLES Final Resul t [facility] [address] [place] [address], documented in this encounter Visit Diagnoses Diagnosis Heart failure, unspecified (CMS/HCC V24, CMS/HCC V28) Heart failure, unspecified documented in this encounter Care Teams Belt Loop Machine Operator Relationship Specialty Start Date End Date Conrado Melendez MD [address] [place] [address], [phone] PCP - General Family Medicine 7/15/25 documented as of this encounter
--- OUTSIDE RECORDS SUMMARY | 2025-07-10 14:10 | XMS_ITS | Encounter Summary ---
Author Organization [facility] Address [address] [place] [address] Care Team Providers Care Paint Roller Covermaker Name Role Phone Conrado Melendez MD Primary Care Provider [phone] Encounter Details Date Type Department Care Team (Late Contact Info) Description 04/07/2025 Lab Requisition [facility] [address] [facility] [place] [address] Conrado Melendez MD [address] [facility] [address] [place], [address] Essential (primary) hypertension; Hyperlipidemia, unspecified Social History Tobacco Use Types Packs/Day Years [...] Description 07/31/2025 10:35 AM EDT Office Visit [facility] [address] [place] [address] Emma Bateman NP [address] [place] [address] 09/10/2025 10:00 AM EDT Ancillary Procedure [facility] - [address] [place] [address] documented as of this encounter Procedures Procedure Name Priority Date/Time Associated Diagnosis Comments HEMOGLOBIN A1C Routine 04/08/2025 8:20 AM EDT Essential (primary) hypertension Hyperlipidemia, unspecified documented in this encounter Results * Hemoglobin A1c (04/08/2025 8:20 AM EDT) Hemoglobin A1C 5.4 <6.5 % LAB CHEMISTRY METHOD 04/08/2025 1:31 PM EDT [facility] Mean Bld Glu Estim. 108 mg/dL LAB CHEMISTRY METHOD 04/08/2025 1:31 PM EDT [facility] LAB Blood Venous blood specimen / Unknown Venipuncture / Unknown 04/08/2025 8:20 AM EDT 04/08/2025 10:48 AM EDT us Conrado Melendez MD LAB BLOOD ORDERABLES Final Resul t [facility] [address] [place] [address], documented in this encounter Visit Diagnoses Diagnosis Essential (primary) hypertension Unspecified essential hypertension Hyperlipidemia, unspecified documented in this encounter Care Teams Paint Roller Covermaker Relationship Specialty Start Date End Date Conrado Melendez MD [address] [place] [address] [address] [place], [address] PCP - General Family Medicine 05/27/25 documented as of this encounter
--- OUTSIDE RECORDS SUMMARY | 2025-07-10 14:10 | XMS_ITS | Encounter Summary ---
Author Organization [facility] Address [address] [place] [address] Care Team Providers Care Scout Professional Sports Name Role Phone Conrado Melendez MD Primary Care Provider [phone] Encounter Details Date Type Department Care Team (Late Contact Info) Description 02/28/2025 Lab Requisition [facility] - Main Lab [address] [facility] [place] [address] Conrado Melendez MD 38 [facility] [address] [place], [address] Weakness; Anxiety disorder, unspecified; Chronic respiratory failure with hypoxia (CMS/HCC V24, CMS/HCC V28) Social History Tobacco [...] Description 07/31/2025 10:35 AM EDT Office Visit [facility] [address] [place] [address] Emma Bateman NP [address] [place] [address] 09/10/2025 10:00 AM EDT Ancillary Procedure [facility] - [address] [place] [address] documented as of this encounter Procedures Procedure Name Priority Date/Time Associated Diagnosis Comments COMPLETE BLOOD COUNT Routine 03/03/2025 8:58 AM EDT Weakness Anxiety disorder, unspecified Chronic respiratory failure with hypoxia (CMS/HCC V24, CMS/HCC V28) BASIC METABOLIC PANEL Routine 03/03/2025 8:58 AM EDT Weakness Anxiety disorder, unspecified Chronic respiratory failure with hypoxia (CMS/HCC V24, CMS/HCC V28) documented in this encounter Results * (ABNORMAL) Basic metabolic panel (03/03/2025 8:58 AM EDT) Sodium 144 133 - 145 mmol/L LAB CHEMISTRY METHOD 03/03/2025 2:44 PM [facility] Potassium 3.6 3.5 - 5.5 mmol/L LAB CHEMISTRY METHOD 03/03/2025 2:44 PM [facility] Chloride 103 96 - 110 mmol/L LAB CHEMISTRY METHOD 03/03/2025 2:44 PM [facility] CO2 33(H) 21 - 32 mmol/L LAB CHEMISTRY METHOD 03/03/2025 2:44 PM [facility] Anion Gap 8 3 - 11 LAB CHEMISTRY METHOD 03/03/2025 2:44 PM [facility] Glucose 148(H) 70 - 100 mg/dL LAB CHEMISTRY METHOD 03/03/2025 2:44 PM [facility] BUN 16 5 - 25 mg/dL LAB CHEMISTRY METHOD 03/03/2025 2:44 PM [facility] Creatinine 0.75 0.50 - 1.10 mg/dL LAB CHEMISTRY METHOD 03/03/2025 2:44 PM [facility] LAB eGFR 84 >=60 mL/min/1. 73m2 LAB CHEMISTRY METHOD 03/03/2025 2:44 PM EDT [facility] Comment:Calculation based on the Chronic Kidney Disease Epidemiology Collaboration (CKD-EPI) equation refit without adjustment for race. BUN/Creatinine Ratio 21.3 LAB CHEMISTRY METHOD 03/03/2025 2:44 PM EDT [facility] Calcium 9.1 8.5 - 10.5 mg/dL LAB CHEMISTRY METHOD 03/03/2025 2:44 PM EDT [facility] Blood Venous blood specimen / Unknown Venipuncture / Unknown 03/03/2025 8:58 AM EDT 03/03/2025 10:33 AM EDT us Conrado Melendez MD LAB BLOOD ORDERABLES Final Resul t [facility] [address] [place] [address], * (ABNORMAL) Complete blood count (03/03/2025 8:58 AM EDT) WBC 8.1 4.8 - 10.8 K/mcL LAB HEMETOLOGY METHOD 03/03/2025 11:51 AM [facility] RBC 4.50 3.80 - 4.80 M/mcL LAB HEMETOLOGY METHOD 03/03/2025 11:51 AM [facility] Hemoglobin 12.9 11.5 - 16.0 g/dL LAB HEMETOLOGY METHOD 03/03/2025 11:51 AM [facility] Hematocrit 43.1 35.0 - 47.0 % LAB HEMETOLOGY METHOD 03/03/2025 11:51 AM [facility] MCV 96.2 79.0 - 98.0 FL LAB HEMETOLOGY METHOD 03/03/2025 11:51 AM [facility] MCH 28.8 27.0 - 32.0 pcg LAB HEMETOLOGY METHOD 03/03/2025 11:51 AM EDT [facility] MCHC 29.9(L) 32.0 - 37.0 g/dL LAB HEMETOLOGY METHOD 03/03/2025 11:51 AM EDT [facility] RDW 14.1 11.0 - 15.0 % LAB HEMETOLOGY METHOD 03/03/2025 11:51 AM EDT [facility] Platelets 224 130 - 400 K/mcL LAB HEMETOLOGY METHOD 03/03/2025 11:51 AM EDT [facility] MPV 11.0 7.0 - 11.0 FL LAB HEMETOLOGY METHOD 03/03/2025 11:51 AM EDT [facility] NRBC 0.0 <1.0 % LAB HEMETOLOGY METHOD 03/03/2025 11:51 AM EDT [facility] NRBC Absolute 0.00 <0.10 K/mcL LAB HEMETOLOGY METHOD 03/03/2025 11:51 AM EDT [facility] Blood Venous blood specimen / Unknown Venipuncture / Unknown 03/03/2025 8:58 AM EDT 03/03/2025 10:33 AM EDT us Conrado Melendez MD LAB BLOOD ORDERABLES Final Resul t [facility] [address] [place] [address], documented in this encounter Visit Diagnoses Diagnosis Weakness Other malaise and fatigue Anxiety disorder, unspecified Chronic respiratory failure with hypoxia (CMS/HCC V24, CMS/HCC V28) documented in this encounter Care Teams Scout Professional Sports Relationship Specialty Start Date End Date Conrado Melendez MD [address] [place] [address], [phone] PCP - General Family Medicine 05/27/25 documented as of this encounter
--- OUTSIDE RECORDS SUMMARY | 2025-07-10 14:10 | XMS_ITS | Encounter Summary ---
Author Organization [facility] Address [address] [place] [address] Care Team Providers Care Broom Worker Name Role Phone Conrado Melendez MD Primary Care Provider [phone] Encounter Details Date Type Department Care Team (Late Contact Info) Description 03/07/2025 Lab Requisition [facility] - Main Lab [address] [facility] [place] [address] Conrado Melendez MD [address] [facility] [address] [place], [address] Weakness; Anxiety disorder, unspecified; Chronic respiratory [...] Description 07/31/2025 10:35 AM EDT Office Visit [facility] [address] [facility] [address] [place] [address] Emma Bateman NP [address] [place] [address] 09/10/2025 10:00 AM EDT Ancillary Procedure [facility] - [address] [place] [address] documented as of this encounter Procedures Procedure Name Priority Date/Time Associated Diagnosis Comments COMPLETE BLOOD COUNT Routine 03/10/2025 8:48 AM EDT Weakness Anxiety disorder, unspecified Chronic respiratory failure with hypoxia (CMS/HCC V24, CMS/HCC V28) BASIC METABOLIC PANEL Routine 03/10/2025 8:48 AM EDT Weakness Anxiety disorder, unspecified Chronic respiratory failure with hypoxia (CMS/HCC V24, CMS/HCC V28) documented in this encounter Results * (ABNORMAL) Basic metabolic panel (03/10/2025 8:48 AM EDT) Sodium 140 133 - 145 mmol/L LAB CHEMISTRY METHOD 03/10/2025 11:42 AM [facility] Potassium 3.6 3.5 - 5.5 mmol/L LAB CHEMISTRY METHOD 03/10/2025 11:42 AM [facility] Chloride 101 96 - 110 mmol/L LAB CHEMISTRY METHOD 03/10/2025 11:42 AM [facility] CO2 34(H) 21 - 32 mmol/L LAB CHEMISTRY METHOD 03/10/2025 11:42 AM [facility] Anion Gap 5 3 - 11 LAB CHEMISTRY METHOD 03/10/2025 11:42 AM [facility] Glucose 110(H) 70 - 100 mg/dL LAB CHEMISTRY METHOD 03/10/2025 11:42 AM [facility] BUN 17 5 - 25 mg/dL LAB CHEMISTRY METHOD 03/10/2025 11:42 AM [facility] Creatinine 1.10 0.50 - 1.10 mg/dL LAB CHEMISTRY METHOD 03/10/2025 11:42 AM [facility] eGFR 53(L) >=60 mL/min/1. 73m2 LAB CHEMISTRY METHOD 03/10/2025 11:42 AM EDT [facility] Comment:Calculation based on the Chronic Kidney Disease Epidemiology Collaboration (CKD-EPI) equation refit without adjustment for race. BUN/Creatinine Ratio 15.5 LAB CHEMISTRY METHOD 03/10/2025 11:42 AM EDT [facility] Calcium 8.5 8.5 - 10.5 mg/dL LAB CHEMISTRY METHOD 03/10/2025 11:42 AM EDT [facility] Blood Venous blood specimen / Unknown Venipuncture / Unknown 03/10/2025 8:48 AM EDT 03/10/2025 9:40 AM EDT us Conrado Melendez MD LAB BLOOD ORDERABLES Final Resul t [facility] [address] [place] [address], * (ABNORMAL) Complete blood count (03/10/2025 8:48 AM EDT) WBC 6.5 4.8 - 10.8 K/mcL LAB HEMETOLOGY METHOD 03/10/2025 10:03 AM [facility] RBC 4.50 3.80 - 4.80 M/mcL LAB HEMETOLOGY METHOD 03/10/2025 10:03 AM [facility] Hemoglobin 12.6 11.5 - 16.0 g/dL LAB HEMETOLOGY METHOD 03/10/2025 10:03 AM [facility] Hematocrit 42.6 35.0 - 47.0 % LAB HEMETOLOGY METHOD 03/10/2025 10:03 AM [facility] MCV 94.2 79.0 - 98.0 FL LAB HEMETOLOGY METHOD 03/10/2025 10:03 AM [facility] MCH 27.9 27.0 - 32.0 pcg LAB HEMETOLOGY METHOD 03/10/2025 10:03 AM EDT [facility] MCHC 29.6(L) 32.0 - 37.0 g/dL LAB HEMETOLOGY METHOD 03/10/2025 10:03 AM EDT [facility] RDW 13.7 11.0 - 15.0 % LAB HEMETOLOGY METHOD 03/10/2025 10:03 AM EDT [facility] Platelets 263 130 - 400 K/mcL LAB HEMETOLOGY METHOD 03/10/2025 10:03 AM EDT [facility] MPV 10.7 7.0 - 11.0 FL LAB HEMETOLOGY METHOD 03/10/2025 10:03 AM EDT [facility] NRBC 0.0 <1.0 % LAB HEMETOLOGY METHOD 03/10/2025 10:03 AM EDT [facility] NRBC Absolute 0.00 <0.10 K/mcL LAB HEMETOLOGY METHOD 03/10/2025 10:03 AM [facility] Blood Venous blood specimen / Unknown Venipuncture / Unknown 03/10/2025 8:48 AM EDT 03/10/2025 9:40 AM EDT us Conrado Melendez MD LAB BLOOD ORDERABLES Final Resul t [facility] [address] [place] [address], documented in this encounter Visit Diagnoses Diagnosis Weakness Other malaise and fatigue Anxiety disorder, unspecified Chronic respiratory failure with hypoxia (CMS/HCC V24, CMS/HCC V28) documented in this encounter Care Teams Broom Worker Relationship Specialty Start Date End Date Conrado Melendez MD [address] [place] [address], [phone] PCP - General Family Medicine 05/27/25 documented as of this encounter
--- OUTSIDE RECORDS SUMMARY | 2025-07-10 14:10 | XMS_ITS | Encounter Summary ---
Author Organization [facility] Address [address] [place] [address] Care Team Providers Care Tool Maker Bench Name Role Phone Conrado Melendez MD Primary Care Provider [phone] Encounter Details Date Type Department Care Team (Late Contact Info) Description 05/22/2025 Lab Requisition [facility] - Main Lab 299 [facility] [place] [address] Conrado Melendez MD 38 [facility] [address] [place], [address] Type 2 diabetes mellitus without complications ([facility]/HCC V24, [facility] V28) Social History Tobacco Use Types Packs/Day [...] Description 07/31/2025 10:35 AM EDT Office Visit [facility] 175 [facility] [address] [place] [address] Emma Bateman NP [address] [place] [address] 09/10/2025 10:00 AM EDT Ancillary Procedure [facility] - [address] [place] [address] documented as of this encounter Procedures Procedure Name Priority Date/Time Associated Diagnosis Comments CBC WITH AUTO DIFFERENTIAL Routine 05/22/2025 9:13 AM EDT Type 2 diabetes mellitus without complications ([facility] V24, [facility] V28) CBC AND DIFFERENTIAL Routine 05/22/2025 9:13 AM EDT Type 2 diabetes mellitus without complications ([facility]/HCC V24, CMS/[facility] V28) documented in this encounter Results * (ABNORMAL) CBC auto differential (05/22/2025 9:13 AM EDT) WBC 5.4 4.8 - 10.8 K/mcL LAB HEMETOLOGY METHOD 05/22/2025 11:49 AM [facility] RBC 4.20 3.80 - 4.80 M/mcL LAB HEMETOLOGY METHOD 05/22/2025 11:49 AM [facility] Hemoglobin 11.5 11.5 - 16.0 g/dL LAB HEMETOLOGY METHOD 05/22/2025 11:49 AM [facility] Hematocrit 38.6 35.0 - 47.0 % LAB HEMETOLOGY METHOD 05/22/2025 11:49 AM [facility] MCV 92.1 79.0 - 98.0 FL LAB HEMETOLOGY METHOD 05/22/2025 11:49 AM [facility] MCH 27.4 27.0 - 32.0 pcg LAB HEMETOLOGY METHOD 05/22/2025 11:49 AM [facility] MCHC 29.8(L) 32.0 - 37.0 g/dL LAB HEMETOLOGY METHOD 05/22/2025 11:49 AM [facility] RDW 14.6 11.0 - 15.0 % LAB HEMETOLOGY METHOD 05/22/2025 11:49 AM [facility] Platelets 241 130 - 400 K/mcL LAB HEMETOLOGY METHOD 05/22/2025 11:49 AM [facility] MPV 10.3 7.0 - 11.0 FL LAB HEMETOLOGY METHOD 05/22/2025 11:49 AM [facility] NRBC 0.0 <1.0 % LAB HEMETOLOGY METHOD 05/22/2025 11:49 AM [facility] NRBC Absolute 0.00 <0.10 K/mcL LAB HEMETOLOGY METHOD 05/22/2025 11:49 AM [facility] Neutrophils Relative 68.5 % LAB HEMETOLOGY METHOD 05/22/2025 11:49 AM [facility] Lymphocytes Relative 18.6 % LAB HEMETOLOGY METHOD 05/22/2025 11:49 AM [facility] Monocytes Relative 10.8 % LAB HEMETOLOGY METHOD 05/22/2025 11:49 AM [facility] Eosinophils Relative 1.3 % LAB HEMETOLOGY METHOD 05/22/2025 11:49 AM [facility] Basophils Relative 0.2 % LAB HEMETOLOGY METHOD 05/22/2025 11:49 AM [facility] Immature Granulocytes Relative 0.6 % LAB HEMETOLOGY METHOD 05/22/2025 11:49 AM [facility] Neutrophils Absolute 3.70 1.50 - 7.00 K/mcL LAB HEMETOLOGY METHOD 05/22/2025 11:49 AM [facility] Lymphocytes Absolute 1.00 1.00 - 5.00 K/mcL LAB HEMETOLOGY METHOD 05/22/2025 11:49 AM [facility] Monocytes Absolute 0.58 0.20 - 1.00 K/mcL LAB HEMETOLOGY METHOD 05/22/2025 11:[address] [facility] Eosinophils Absolute 0.07 0.00 - 0.50 K/mcL LAB HEMETOLOGY METHOD 05/22/2025 11:[address] [facility] Basophils Absolute 0.01 0.00 - 0.20 K/mcL LAB HEMETOLOGY METHOD 05/22/2025 11:[address] [facility] Immature Granulocytes Absolute 0.03 0.00 - 0.03 K/mcL LAB HEMETOLOGY METHOD 05/22/2025 11:[address] [facility] Blood Venous blood specimen / Unknown Venipuncture / Unknown 05/22/2025 9:13 AM EDT 05/22/2025 9:59 AM EDT us Conrado Melendez MD LAB BLOOD ORDERABLES Final Resul t [facility] [address] [place] [address], documented in this encounter Visit Diagnoses Diagnosis Type 2 diabetes mellitus without complications (CMS/HCC V24, CMS/HCC V28) documented in this encounter Care Teams Tool Maker Bench Relationship Specialty Start Date End Date Conrado Melendez MD [address] [place] [address], [phone] PCP - General Family Medicine 05/27/25 documented as of this encounter
--- OUTSIDE RECORDS SUMMARY | 2025-07-10 14:10 | XMS_ITS | Encounter Summary ---
Author Organization [facility] Address [address] [place] [address] Care Team Providers Care Wrapper Layer And Examiner Soft Work Name Role Phone Conrado Melendez MD Primary Care Provider [phone] Encounter Details Date Type Department Care Team (Late Contact Info) Description 05/06/2025 Lab Requisition [facility] - Main Lab [address] [facility] [place] [address] Conrado Melendez MD 38 [facility] [address] [place], [address] Urinary tract infection, site not specified; Heart failure, unspecified (CMS/HCC V24, CMS/HCC V28); Type 2 diabetes mellitus without complications (CMS/HCC V24, CMS/HCC V28); Chronic obstructive pulmonary disease, unspecified (CMS/HCC V24, CMS/HCC V28) Social History [...] Description 07/31/2025 10:35 AM EDT [facility] [address] [facility] 200 [place] [address] Emma Bateman, KRISTI [address] [place] [address] 09/10/2025 10:00 AM EDT Ancillary Procedure [facility] - [address] [place] [address] documented as of this encounter Procedures Procedure Name Priority Date/Time Associated Diagnosis Comments URINALYSIS WITH REFLEX MICROSCOPIC Routine 05/06/2025 2:00 AM EDT Urinary tract infection, site not specified Heart failure, unspecified ([facility] V24, [facility] V28) Type 2 diabetes mellitus without complications (CMS/[facility] V24, CMS/[facility] V28) Chronic obstructive pulmonary disease, unspecified ([facility] V24, [facility] V28) URINALYSIS WITH REFLEX MICROSCOPIC Routine 05/06/2025 2:00 AM EDT Urinary tract infection, site not specified Heart failure, unspecified (CMS/HCC V24, [facility] V28) Type 2 diabetes mellitus without complications (CMS/HCC V24, CMS/HCC V28) Chronic obstructive pulmonary disease, unspecified ([facility] V24, [facility] V28) CULTURE URINE Routine 05/06/2025 2:00 AM EDT Urinary tract infection, site not specified Heart failure, unspecified (CMS/HCC V24, CMS/HCC V28) Type 2 diabetes mellitus without complications (CMS/HCC V24, CMS/HCC V28) Chronic obstructive pulmonary disease, unspecified ([facility] V24, CMS/HCC V28) documented in this encounter Results * (ABNORMAL) Urinalysis with reflex microscopic (05/06/2025 2:00 AM EDT) Specific [place] Urine 1.020 1.003 - 1.030 LAB URINALYSIS - AUTOMATED METHOD 05/06/2025 8:57 AM EDT [facility] pH, Urine 5.5 5.0 - 8.0 pH LAB URINALYSIS - AUTOMATED METHOD 05/06/2025 8:57 AM [facility] Leukocytes, Urine Negative Negative LAB URINALYSIS - AUTOMATED METHOD 05/06/2025 8:57 AM [facility] Nitrite, Urine Negative Negative LAB URINALYSIS - AUTOMATED METHOD 05/06/2025 8:57 AM [facility] Protein, Urine Negative <=Trace mg/dL LAB URINALYSIS - AUTOMATED METHOD 05/06/2025 8:57 AM [facility] Glucose, Urine >=1000(A) Negative mg/dL LAB URINALYSIS - AUTOMATED METHOD 05/06/2025 8:57 AM [facility] Ketones, Urine Negative Negative mg/dL LAB URINALYSIS - AUTOMATED METHOD 05/06/2025 8:57 AM [facility] Urobilinogen , Urine 1.0 0.2 - 1.0 mg/dL LAB URINALYSIS - AUTOMATED METHOD 05/06/2025 8:57 AM [facility] Bilirubin, Urine Negative Negative LAB URINALYSIS - AUTOMATED METHOD 05/06/2025 8:57 AM [facility] Blood, Urine Negative Negative LAB URINALYSIS - AUTOMATED METHOD 05/06/2025 8:57 AM [facility] Urine Urine specimen obtained by clean catch procedure / Unknown 05/06/2025 2:00 AM EDT 05/06/2025 8:45 AM EDT us Conrado Melendez MD LAB URINE ORDERABLES Final Resul t [facility] [address] [place] [address], * Culture urine (05/06/2025 2:00 AM EDT) Culture, Urine 50,000-99,000 CFU/mL Mixed urogenital nohemi, no uropathogens present. Suggest repeat specimen if clinically indicated. 05/07/2025 7:53 AM EDT [facility] Urine Urine specimen obtained by clean catch procedure / Unknown 05/06/2025 2:00 AM EDT 05/06/2025 8:45 AM EDT us Conrado Melendez MD LAB MICROBIOLOGY - GENERAL ORDER CHAVO Final Result [facility] [address] [place] [address], documented in this encounter Visit Diagnoses Diagnosis Urinary tract infection, site not specified Heart failure, unspecified ([facility] V24, [facility] V28) Heart failure, unspecified Type 2 diabetes mellitus without complications (CMS/HCC V24, CMS/[facility] V28) Chronic obstructive pulmonary disease, unspecified (CMS/[facility] V24, [facility] V28) documented in this encounter Care Teams Wrapper Layer And Examiner Soft Work Relationship Specialty Start Date End Date Conrado Melendez MD [address] [place] [address] [address] [place], [phone] PCP - General Family Medicine 05/27/25 documented as of this encounter
--- OUTSIDE RECORDS SUMMARY | 2025-07-10 14:10 | XMS_ITS | Encounter Summary ---
Author Organization [facility] Address [address] [place] [address] Care Team Providers Care Enterprise Cloud Architect Name Role Phone Conrado Melendez MD Primary Care Provider [phone] Encounter Details Date Type Department Care Team (Late st Contact Info) Description 04/13/2025 Lab Requisition [facility] - Main Lab 299 [facility] [place] [address] Conrado Melendez MD 38 [facility] [address] [place], [address] Essential (primary) hypertension; Type 2 diabetes mellitus without complications (CMS/HCC V24, CMS/HCC V28); Heart failure, unspecified (CMS/HCC V24, CMS/HCC V28); Personal history of transient ischemic attack (TIA), and cerebral infarction without residual deficits Social History Tobacco Use Types Packs/Day Years [...] Encounters Date Type Department Care Team (Late st Contact Info) Description 07/31/2025 10:35 AM EDT [facility] [address] [place] [address] Emma Bateman, KRISTI [address] [place] [address] 09/10/2025 10:00 AM EDT Ancillary Procedure [facility] - [address] [place] [address] documented as of this encounter Procedures Procedure Name Priority Date/Time Associated Diagnosis Comments URINALYSIS WITH REFLEX MICROSCOPIC AND CULTURE Routine 04/12/2025 12:00 PM EDT Essential (primary) hypertension Type 2 diabetes mellitus without complications (CMS/HCC V24, CMS/HCC V28) Heart failure, unspecified (CMS/HCC V24, CMS/HCC V28) Personal history of transient ischemic attack (TIA), and cerebral infarction without residual deficits [place] URINE CULTURE TUBE Routine 04/12/2025 12:00 PM EDT Essential (primary) hypertension Type 2 diabetes mellitus without complications (CMS/HCC V24, CMS/HCC V28) Heart failure, unspecified (CMS/HCC V24, CMS/HCC V28) Personal history of transient ischemic attack (TIA), and cerebral infarction without residual deficits URINALYSIS WITH REFLEX MICROSCOPIC AND CULTURE Routine 04/12/2025 12:00 PM EDT Essential (primary) hypertension Type 2 diabetes mellitus without complications (CMS/HCC V24, CMS/HCC V28) Heart failure, unspecified (CMS/HCC V24, CMS/HCC V28) Personal history of transient ischemic attack (TIA), and cerebral infarction without residual deficits CULTURE URINE Routine 04/12/2025 12:00 PM EDT Essential (primary) hypertension Type 2 diabetes mellitus without complications (CMS/HCC V24, CMS/HCC V28) Heart failure, unspecified (CMS/HCC V24, CMS/HCC V28) Personal history of transient ischemic attack (TIA), and cerebral infarction without residual deficits documented in this encounter Results * (ABNORMAL) Culture urine (04/12/2025 12:00 PM EDT) Culture, Urine >100,000 CFU/mL Klebsiella pneumoniae ssp pneumoniae(A) SILVIA 04/15/2025 7:43 AM EDT [facility] Comment: This is an edited result. Previous organism was Gram negative bacilli on 04/14/2025 at 1104 EDT. Urine Urine specimen obtained by clean catch procedure / Unknown Non-blood Collection / Unknown 04/12/2025 12:00 PM EDT 04/13/2025 10:47 AM EDT Narrative Organism Antibiotic Method Susceptibility Klebsiella pneumoniae ssp pneumoniae Amoxicillin/Clavulanate SILVIA <=2 ug/ml: Susceptible Klebsiella pneumoniae ssp pneumoniae Ampicillin/Sulbactam SILVIA 4 ug/ml: Susceptible Klebsiella pneumoniae ssp pneumoniae Piperacillin/Tazobactam SILVIA <=4 ug/ml: Susceptible Klebsiella pneumoniae ssp pneumoniae Cefazolin (Urine) SILVIA 2 ug/ml: Susceptible Klebsiella pneumoniae ssp pneumoniae Cefoxitin SILVIA <=4 ug/ml: Susceptible Klebsiella pneumoniae ssp pneumoniae Ceftazidime SILVIA <=0.5 ug/ml: Susceptible Klebsiella pneumoniae ssp pneumoniae Ceftriaxone SILVIA <=0.25 ug/ml: Susceptible Klebsiella pneumoniae ssp pneumoniae Cefepime SILVIA <=0.12 ug/ml: Susceptible Klebsiella pneumoniae ssp pneumoniae Meropenem SILVIA <=0.25 ug/ml: Susceptible Klebsiella pneumoniae ssp pneumoniae Amikacin SILVIA <=1 ug/ml: Susceptible Klebsiella pneumoniae ssp pneumoniae Gentamicin SILVIA <=1 ug/ml: Susceptible Klebsiella pneumoniae ssp pneumoniae Ciprofloxacin SILVIA <=0.06 ug/ml: Susceptible Klebsiella pneumoniae ssp pneumoniae Levofloxacin SILVIA <=0.12 ug/ml: Susceptible Klebsiella pneumoniae ssp pneumoniae Nitrofurantoin SILVIA <=16 ug/ml: Susceptible Klebsiella pneumoniae ssp pneumoniae Trimethoprim/Sulfamethoxazo le SILVIA <=20 ug/ml: Susceptible us Conrado Melendez MD LAB MICROBIOLOGY - GENERAL ORDER CHAVO Final Result [facility] [address] [place] [address], * [place] urine culture tube (04/12/2025 12:00 PM EDT) Extra Tube Hold for add-ons. 04/13/2025 11:01 AM [facility] Comment:Auto resulted. Urine Urine specimen obtained by clean catch procedure / Unknown 04/12/2025 12:00 PM EDT 04/13/2025 9:46 AM EDT us Conrado Melendez MD LAB URINE ORDERABLES Final Resul t [facility] [address] [place] [address], [place] [phone] * (ABNORMAL) Urinalysis with reflex microscopic and culture (04/12/2025 12:00 PM EDT) Specific [place] Urine 1.010 1.003 - 1.030 LAB URINALYSIS - AUTOMATED METHOD 04/13/2025 10:47 AM [facility] pH, Urine 5.5 5.0 - 8.0 pH LAB URINALYSIS - AUTOMATED METHOD 04/13/2025 10:47 AM [facility] Leukocytes, Urine Large(A) Negative LAB URINALYSIS - AUTOMATED METHOD 04/13/2025 10:47 AM [facility] Nitrite, Urine Negative Negative LAB URINALYSIS - AUTOMATED METHOD 04/13/2025 10:47 AM [facility] Protein, Urine Negative <=Trace mg/dL LAB URINALYSIS - AUTOMATED METHOD 04/13/2025 10:47 AM [facility] Glucose, Urine 250(A) Negative mg/dL LAB URINALYSIS - AUTOMATED METHOD 04/13/2025 10:47 AM [facility] Ketones, Urine Negative Negative mg/dL LAB URINALYSIS - AUTOMATED METHOD 04/13/2025 10:47 AM [facility] Urobilinogen, Urine 0.2 0.2 - 1.0 mg/dL LAB URINALYSIS - AUTOMATED METHOD 04/13/2025 10:47 AM [facility] Bilirubin, Urine Negative Negative LAB URINALYSIS - AUTOMATED METHOD 04/13/2025 10:47 AM [facility] Blood, Urine Negative Negative LAB URINALYSIS - AUTOMATED METHOD 04/13/2025 10:47 AM [facility] RBC, Urine 2.0 0 - 4 /HPF LAB URINALYSIS - AUTOMATED METHOD 04/13/2025 10:47 AM [facility] WBC, Urine 93.6(H) 0 - 4 /HPF LAB URINALYSIS - AUTOMATED METHOD 04/13/2025 10:47 AM [facility] Squamous Epithelial, Urine 8 0 - 60 /LPF LAB URINALYSIS - AUTOMATED METHOD 04/13/2025 10:47 AM [facility] Bacteria, Urine Many(A) Negative /HPF LAB URINALYSIS - AUTOMATED METHOD 04/13/2025 10:47 AM [facility] Hyaline Casts, Urine 2.8 0 - 3 /LPF LAB URINALYSIS - AUTOMATED METHOD 04/13/2025 10:47 AM [facility] Urine Urine specimen obtained by clean catch procedure / Unknown Non-blood Collection / Unknown 04/12/2025 12:00 PM EDT 04/13/2025 9:42 AM EDT us Conrado Melendez MD LAB URINE ORDERABLES Final Resul t [facility] [address] [place] [address], [place] [phone] documented in this encounter Visit Diagnoses Diagnosis Essential (primary) hypertension Unspecified essential hypertension Type 2 diabetes mellitus without complications ([facility] V24, [facility] V28) Heart failure, unspecified ([facility] V24, [facility] V28) Heart failure, unspecified Personal history of transient ischemic attack (TIA), and cerebral infarction without residual deficits documented in this encounter Care Teams Enterprise Cloud Architect Relationship Specialty Start Date End Date Conrado Melendez MD [address] [place] [address] [address] [place], [address] PCP - General Family Medicine 05/27/25 documented as of this encounter
--- OUTSIDE RECORDS SUMMARY | 2025-07-10 14:10 | XMS_ITS | Encounter Summary ---
Author Organization [facility] Address [address] [place] [address] Care Team Providers Care Caretaker Resort Name Role Phone Conrado Melendez MD Primary Care Provider [phone] Encounter Details Date Type Department Care Team (Late st Contact Info) Description 02/21/2025 Lab Requisition [facility] - Main Lab 299 [facility] [place] [address] Conrado Melendez MD 38 [facility] [address] [place], [address] Weakness; Anxiety disorder, unspecified; Chronic respiratory failure with hypoxia (CMS/HCC V24, CMS/HCC V28); Unspecified osteoarthritis, unspecified site; Chronic obstructive pulmonary disease, unspecified (CMS/HCC V24, CMS/HCC V28); Major depressive disorder, single episode, unspecified Social History Tobacco Use Types Packs/Day [...] Description 07/31/2025 10:35 AM EDT Office Visit [facility] 175 [facility] 200 [place] [phone] Emma Bateman, KRISTI [address] [place] [address] 09/10/2025 10:00 AM EDT Ancillary Procedure [facility] - [address] [place] [phone] documented as of this encounter Procedures Procedure Name Priority Date/Time Associated Diagnosis Comments VITAMIN D 25 HYDROXY Routine 02/24/2025 9:32 AM EDT Weakness Anxiety disorder, unspecified Chronic respiratory failure with hypoxia (CMS/HCC V24, CMS/HCC V28) Unspecified osteoarthritis, unspecified site Chronic obstructive pulmonary disease, unspecified (CMS/HCC V24, CMS/HCC V28) Major depressive disorder, single episode, unspecified COMPLETE BLOOD COUNT Routine 02/24/2025 9:32 AM EDT Weakness Anxiety disorder, unspecified Chronic respiratory failure with hypoxia (CMS/HCC V24, CMS/HCC V28) Unspecified osteoarthritis, unspecified site Chronic obstructive pulmonary disease, unspecified (CMS/HCC V24, CMS/HCC V28) Major depressive disorder, single episode, unspecified VITAMIN B12 Routine 02/24/2025 9:32 AM EDT Weakness Anxiety disorder, unspecified Chronic respiratory failure with hypoxia (CMS/HCC V24, CMS/HCC V28) Unspecified osteoarthritis, unspecified site Chronic obstructive pulmonary disease, unspecified (CMS/HCC V24, CMS/HCC V28) Major depressive disorder, single episode, unspecified BASIC METABOLIC PANEL Routine 02/24/2025 9:32 AM EDT Weakness Anxiety disorder, unspecified Chronic respiratory failure with hypoxia (CMS/HCC V24, CMS/HCC V28) Unspecified osteoarthritis, unspecified site Chronic obstructive pulmonary disease, unspecified (CMS/HCC V24, CMS/HCC V28) Major depressive disorder, single episode, unspecified documented in this encounter Results * Vitamin D 25 hydroxy (02/24/2025 9:32 AM EDT) Vit D, 25-Hydroxy 42.7 30.0 - 80.0 ng/mL LAB CHEMISTRY METHOD 02/24/2025 1:06 PM EDT [facility] Blood Venous blood specimen / Unknown Venipuncture / Unknown 02/24/2025 9:32 AM EDT 02/24/2025 10:29 AM EDT Conrado Melendez MD LAB BLOOD ORDERABLES Final Resul t Performing Organization Address City/[facility]/ZIP Co de Phone Number [facility] [address] [place] [address], [place] [phone] * Vitamin B12 (02/24/2025 9:32 AM EDT) [facility] Vitamin B-12 488 250 - 900 pcg/mL LAB CHEMISTRY METHOD 02/24/2025 12:16 PM EDT [facility] Blood Venous blood specimen / Unknown Venipuncture / Unknown 02/24/2025 9:32 AM EDT 02/24/2025 10:29 AM EDT Conrado Melendez MD LAB BLOOD ORDERABLES Final Resul t Performing Organization Address [facility] de Phone Number [facility] [address] [place] [address], [place] [phone] * (ABNORMAL) Basic metabolic panel (02/24/2025 9:32 AM EDT) [facility] Sodium 138 133 - 145 mmol/L LAB CHEMISTRY METHOD 02/24/2025 12:16 PM EDT [facility] Potassium 3.7 3.5 - 5.5 mmol/L LAB CHEMISTRY METHOD 02/24/2025 12:16 PM EDT [facility] Chloride 99 96 - 110 mmol/L LAB CHEMISTRY METHOD 02/24/2025 12:16 PM EDT [facility] CO2 33(H) 21 - 32 mmol/L LAB CHEMISTRY METHOD 02/24/2025 12:16 PM EDT [facility] Anion Gap 6 3 - 11 LAB CHEMISTRY METHOD 02/24/2025 12:16 PM [facility] Glucose 127(H) 70 - 100 mg/dL LAB CHEMISTRY METHOD 02/24/2025 12:16 PM [facility] BUN 20 5 - 25 mg/dL LAB CHEMISTRY METHOD 02/24/2025 12:16 PM [facility] Creatinine 0.99 0.50 - 1.10 mg/dL LAB CHEMISTRY METHOD 02/24/2025 12:16 PM [facility] eGFR 60 >=60 mL/min/1. 73m2 LAB CHEMISTRY METHOD 02/24/2025 12:16 PM [facility] Comment:Calculation based on the Chronic Kidney Disease Epidemiology Collaboration (CKD-EPI) equation refit without adjustment for race. BUN/Creatinine Ratio 20.2 LAB CHEMISTRY METHOD 02/24/2025 12:16 PM [facility] Calcium 8.9 8.5 - 10.5 mg/dL LAB CHEMISTRY METHOD 02/24/2025 12:16 PM [facility] Blood Venous blood specimen / Unknown Venipuncture / Unknown 02/24/2025 9:32 AM EDT 02/24/2025 10:29 AM EDT us Conrado Melendez MD LAB BLOOD ORDERABLES Final Resul t [facility] [address] [place] [address], * (ABNORMAL) Complete blood count (02/24/2025 9:32 AM EDT) WBC 6.8 4.8 - 10.8 K/mcL LAB HEMETOLOGY METHOD 02/24/2025 11:32 AM EDT [facility] RBC 4.50 3.80 - 4.80 M/mcL LAB HEMETOLOGY METHOD 02/24/2025 11:32 AM [facility] Hemoglobin 12.9 11.5 - 16.0 g/dL LAB HEMETOLOGY METHOD 02/24/2025 11:32 AM [facility] Hematocrit 43.2 35.0 - 47.0 % LAB HEMETOLOGY METHOD 02/24/2025 11:32 AM [facility] MCV 95.8 79.0 - 98.0 FL LAB HEMETOLOGY METHOD 02/24/2025 11:32 AM [facility] MCH 28.6 27.0 - 32.0 pcg LAB HEMETOLOGY METHOD 02/24/2025 11:32 AM [facility] MCHC 29.9(L) 32.0 - 37.0 g/dL LAB HEMETOLOGY METHOD 02/24/2025 11:32 AM [facility] RDW 14.1 11.0 - 15.0 % LAB HEMETOLOGY METHOD 02/24/2025 11:32 AM [facility] Platelets 259 130 - 400 K/mcL LAB HEMETOLOGY METHOD 02/24/2025 11:32 AM [facility] MPV 11.0 7.0 - 11.0 FL LAB HEMETOLOGY METHOD 02/24/2025 11:32 AM [facility] NRBC 0.0 <1.0 % LAB HEMETOLOGY METHOD 02/24/2025 11:32 AM [facility] NRBC Absolute 0.00 <0.10 K/mcL LAB HEMETOLOGY METHOD 02/24/2025 11:32 AM [facility] Blood Venous blood specimen / Unknown Venipuncture / Unknown 02/24/2025 9:32 AM EDT 02/24/2025 10:29 AM EDT us Conrado Melendez MD LAB BLOOD ORDERABLES Final Resul t [facility] [address] [place] [address], documented in this encounter Visit Diagnoses Diagnosis Weakness Other malaise and fatigue Anxiety disorder, unspecified Chronic respiratory failure with hypoxia (CMS/HCC V24, CMS/[facility] V28) Unspecified osteoarthritis, unspecified site Chronic obstructive pulmonary disease, unspecified (CMS/HCC V24, CMS/[facility] V28) Major depressive disorder, single episode, unspecified documented in this encounter Care Teams Caretaker Resort Relationship Specialty Start Date End Date Conrado Melendez MD [address] [place] [address], [phone] PCP - General Family Medicine 05/27/25 documented as of this encounter
--- OUTSIDE RECORDS SUMMARY | 2025-07-10 14:10 | XMS_ITS | Encounter Summary ---
Author Organization [facility] Address [address] [place] [address] Care Team Providers Care Insurance Sales Representative Name Role Phone Conrado Melendez MD Primary Care Provider [phone] Encounter Details Date Type Department Care Team (Late Contact Info) Description 03/15/2025 Lab Requisition [facility] - Main Lab 299 [facility] [place] [address] Conrado Melendez MD 38 [facility] [address] [place], [address] Weakness; Anxiety disorder, unspecified; Chronic respiratory [...] Description 07/31/2025 10:35 AM EDT Office Visit [facility] 175 [facility] [address] [place] [address] Emma Batmean NP [address] [place] [address] 09/10/2025 10:00 AM EDT Ancillary Procedure [facility] - [address] [place] [address] documented as of this encounter Procedures Procedure Name Priority Date/Time Associated Diagnosis Comments COMPLETE BLOOD COUNT Routine 03/17/2025 9:05 AM EDT Weakness Anxiety disorder, unspecified Chronic respiratory failure with hypoxia (CMS/HCC V24, CMS/HCC V28) BASIC METABOLIC PANEL Routine 03/17/2025 9:05 AM EDT Weakness Anxiety disorder, unspecified Chronic respiratory failure with hypoxia (CMS/HCC V24, CMS/HCC V28) documented in this encounter Results * (ABNORMAL) Basic metabolic panel (03/17/2025 9:05 AM EDT) Sodium 136 133 - 145 mmol/L LAB CHEMISTRY METHOD 03/17/2025 1:33 PM [facility] Potassium 4.0 3.5 - 5.5 mmol/L LAB CHEMISTRY METHOD 03/17/2025 1:33 PM [facility] Chloride 98 96 - 110 mmol/L LAB CHEMISTRY METHOD 03/17/2025 1:33 PM [facility] CO2 31 21 - 32 mmol/L LAB CHEMISTRY METHOD 03/17/2025 1:33 PM [facility] Anion Gap 7 3 - 11 LAB CHEMISTRY METHOD 03/17/2025 1:33 PM [facility] Glucose 155(H) 70 - 100 mg/dL LAB CHEMISTRY METHOD 03/17/2025 1:33 PM [facility] BUN 23 5 - 25 mg/dL LAB CHEMISTRY METHOD 03/17/2025 1:33 PM [facility] Creatinine 1.06 0.50 - 1.10 mg/dL LAB CHEMISTRY METHOD 03/17/2025 1:33 PM [facility] eGFR 56(L) >=60 mL/min/1. 73m2 LAB CHEMISTRY METHOD 03/17/2025 1:33 PM EDT [facility] Comment:Calculation based on the Chronic Kidney Disease Epidemiology Collaboration (CKD-EPI) equation refit without adjustment for race. BUN/Creatinine Ratio 21.7 LAB CHEMISTRY METHOD 03/17/2025 1:33 PM EDT [facility] Calcium 9.5 8.5 - 10.5 mg/dL LAB CHEMISTRY METHOD 03/17/2025 1:33 PM EDT [facility] Blood Venous blood specimen / Unknown Venipuncture / Unknown 03/17/2025 9:05 AM EDT 03/17/2025 12:10 PM EDT us Conrado Melendez MD LAB BLOOD ORDERABLES Final Resul t [facility] [address] [place] [address], [place] [phone] * (ABNORMAL) Complete blood count (03/17/2025 9:05 AM EDT) WBC 7.8 4.8 - 10.8 K/mcL LAB HEMETOLOGY METHOD 03/17/2025 1:25 PM EDT [facility] RBC 4.60 3.80 - 4.80 M/mcL LAB HEMETOLOGY METHOD 03/17/2025 1:25 PM EDT [facility] Hemoglobin 13.2 11.5 - 16.0 g/dL LAB HEMETOLOGY METHOD 03/17/2025 1:25 PM EDT [facility] Hematocrit 43.3 35.0 - 47.0 % LAB HEMETOLOGY METHOD 03/17/2025 1:25 PM T [facility] MCV 93.9 79.0 - 98.0 FL LAB HEMETOLOGY METHOD 03/17/2025 1:25 PM EDT [facility] MCH 28.6 27.0 - 32.0 pcg LAB HEMETOLOGY METHOD 03/17/2025 1:25 PM EDT [facility] MCHC 30.5(L) 32.0 - 37.0 g/dL LAB HEMETOLOGY METHOD 03/17/2025 1:25 PM EDT [facility] RDW 14.0 11.0 - 15.0 % LAB HEMETOLOGY METHOD 03/17/2025 1:25 PM EDT [facility] Platelets 290 130 - 400 K/mcL LAB HEMETOLOGY METHOD 03/17/2025 1:25 PM EDT [facility] MPV 10.7 7.0 - 11.0 FL LAB HEMETOLOGY METHOD 03/17/2025 1:25 PM EDT [facility] NRBC 0.0 <1.0 % LAB HEMETOLOGY METHOD 03/17/2025 1:25 PM EDT [facility] NRBC Absolute 0.00 <0.10 K/mcL LAB HEMETOLOGY METHOD 03/17/2025 1:25 PM EDT [facility] Blood Venous blood specimen / Unknown Venipuncture / Unknown 03/17/2025 9:05 AM EDT 03/17/2025 12:10 PM EDT us Conrado Melendez MD LAB BLOOD ORDERABLES Final Resul t [facility] [address] [place] [address], documented in this encounter Visit Diagnoses Diagnosis Weakness Other malaise and fatigue Anxiety disorder, unspecified Chronic respiratory failure with hypoxia (CMS/HCC V24, CMS/HCC V28) documented in this encounter Care Teams Insurance Sales Representative Relationship Specialty Start Date End Date Conrado Melendez MD [address] [place] [address], [phone] PCP - General Family Medicine 05/27/25 documented as of this encounter
--- OUTSIDE RECORDS SUMMARY | 2025-07-10 14:10 | XMS_ITS | Encounter Summary ---
Author Organization [facility] Address [address] [place] [address] Care Team Providers Care Intensive Care Unit Nurse Name Role Phone Conrado Melendez MD Primary Care Provider Encounter Details Date Type Department Care Team (Late Contact Info) Description 02/02/2025 Lab Requisition [facility] - Main Lab 299 [facility] [place] [address] Conrado Melendez MD 38 [facility] [address] [place], [address] Weakness; Anxiety disorder, unspecified; Chronic respiratory [...] Description 07/31/2025 10:35 AM EDT Office Visit [facility] 175 [facility] [address] [place] [address] Emma Bateman NP [address] [place] [address] 09/10/2025 10:00 AM EDT Ancillary Procedure [facility] - [address] [place] [address] documented as of this encounter Procedures Procedure Name Priority Date/Time Associated Diagnosis Comments COMPLETE BLOOD COUNT Routine 02/03/2025 5:56 AM EDT Weakness Anxiety disorder, unspecified Chronic respiratory failure with hypoxia BASIC METABOLIC PANEL Routine 02/03/2025 5:56 AM EDT Weakness Anxiety disorder, unspecified Chronic respiratory failure with hypoxia documented in this encounter Results * (ABNORMAL) Basic metabolic panel (02/03/2025 5:56 AM EDT) Sodium 140 133 - 145 mmol/L LAB CHEMISTRY METHOD 02/03/2025 11:11 AM [facility] Potassium 4.1 3.5 - 5.5 mmol/L LAB CHEMISTRY METHOD 02/03/2025 11:11 AM [facility] Chloride 99 96 - 110 mmol/L LAB CHEMISTRY METHOD 02/03/2025 11:11 AM [facility] CO2 35(H) 21 - 32 mmol/L LAB CHEMISTRY METHOD 02/03/2025 11:11 AM [facility] Anion Gap 6 3 - 11 LAB CHEMISTRY METHOD 02/03/2025 11:11 AM [facility] Glucose 91 70 - 100 mg/dL LAB CHEMISTRY METHOD 02/03/2025 11:11 AM [facility] BUN 26(H) 5 - 25 mg/dL LAB CHEMISTRY METHOD 02/03/2025 11:11 AM [facility] Creatinine 0.97 0.50 - 1.10 mg/dL LAB CHEMISTRY METHOD 02/03/2025 11:11 AM [facility] eGFR 62 >=60 mL/min/1. 73m2 LAB CHEMISTRY METHOD 02/03/2025 11:11 AM EDT [facility] Comment:Calculation based on the Chronic Kidney Disease Epidemiology Collaboration (CKD-EPI) equation refit without adjustment for race. BUN/Creatinine Ratio 26.8 LAB CHEMISTRY METHOD 02/03/2025 11:11 AM EDT [facility] Calcium 8.9 8.5 - 10.5 mg/dL LAB CHEMISTRY METHOD 02/03/2025 11:11 AM EDT [facility] Blood Venous blood specimen / Unknown Venipuncture / Unknown 02/03/2025 5:56 AM EDT 02/03/2025 10:02 AM EDT us Conrado Melendez MD LAB BLOOD ORDERABLES Final Resul t [facility] [address] [place] [address], [place] [phone] * (ABNORMAL) Complete blood count (02/03/2025 5:56 AM EDT) WBC 7.2 4.8 - 10.8 K/mcL LAB HEMETOLOGY METHOD 02/03/2025 11:30 AM [facility] RBC 4.20 3.80 - 4.80 M/mcL LAB HEMETOLOGY METHOD 02/03/2025 11:30 AM [facility] Hemoglobin 12.2 11.5 - 16.0 g/dL LAB HEMETOLOGY METHOD 02/03/2025 11:30 AM T [facility] Hematocrit 39.5 35.0 - 47.0 % LAB HEMETOLOGY METHOD 02/03/2025 11:30 AM [facility] MCV 95.0 79.0 - 98.0 FL LAB HEMETOLOGY METHOD 02/03/2025 11:30 AM [facility] MCH 29.3 27.0 - 32.0 pcg LAB HEMETOLOGY METHOD 02/03/2025 11:30 AM EDT [facility] MCHC 30.9(L) 32.0 - 37.0 g/dL LAB HEMETOLOGY METHOD 02/03/2025 11:30 AM EDT [facility] RDW 14.6 11.0 - 15.0 % LAB HEMETOLOGY METHOD 02/03/2025 11:30 AM EDT [facility] Platelets 270 130 - 400 K/mcL LAB HEMETOLOGY METHOD 02/03/2025 11:30 AM EDT [facility] MPV 11.0 7.0 - 11.0 FL LAB HEMETOLOGY METHOD 02/03/2025 11:30 AM EDT [facility] NRBC 0.0 <1.0 % LAB HEMETOLOGY METHOD 02/03/2025 11:30 AM EDT [facility] NRBC Absolute 0.00 <0.10 K/mcL LAB HEMETOLOGY METHOD 02/03/2025 11:30 AM EDT [facility] Blood Venous blood specimen / Unknown Venipuncture / Unknown 02/03/2025 5:56 AM EDT 02/03/2025 10:02 AM EDT us Conrado Melendez MD LAB BLOOD ORDERABLES Final Resul t [facility] [address] [place] [address], documented in this encounter Visit Diagnoses Diagnosis Weakness Other malaise and fatigue Anxiety disorder, unspecified Chronic respiratory failure with hypoxia (CMS/HCC V24, CMS/HCC V28) documented in this encounter Care Teams Intensive Care Unit Nurse Relationship Specialty Start Date End Date Conrado Melendez MD [address] [place] [address], [phone] PCP - General Family Medicine 05/27/25 documented as of this encounter
--- OUTSIDE RECORDS SUMMARY | 2025-07-10 14:10 | XMS_ITS | Encounter Summary ---
Author Organization [facility] Address [address] [place] [address] Care Team Providers Care Chief Yeoman Name Role Phone Conrado Melendez MD Primary Care Provider [phone] Encounter Details Date Type Department Care Team (Late Contact Info) Description 03/22/2025 Lab Requisition [facility] - Main Lab 299 [facility] [place] [address] Conrado Melendez MD 38 [facility] 204 [place], [address] Weakness; Anxiety disorder, unspecified; Chronic respiratory [...] 07/31/2025 10:35 AM EDT Office Visit [facility] 175 [facility] [address] [place] [address] Emma Bateman NP [address] [place] [address] 09/10/2025 10:00 AM EDT Ancillary Procedure [facility] - [address] [place] [address] documented as of this encounter Procedures Procedure Name Priority Date/Time Associated Diagnosis Comments COMPLETE BLOOD COUNT Routine 03/24/2025 7:22 AM EDT Weakness Anxiety disorder, unspecified Chronic respiratory failure with hypoxia (CMS/HCC V24, CMS/HCC V28) BASIC METABOLIC PANEL Routine 03/24/2025 7:22 AM EDT Weakness Anxiety disorder, unspecified Chronic respiratory failure with hypoxia (CMS/HCC V24, CMS/HCC V28) documented in this encounter Results * (ABNORMAL) Basic metabolic panel (03/24/2025 7:22 AM EDT) Sodium 139 133 - 145 mmol/L LAB CHEMISTRY METHOD 03/24/2025 10:09 AM [facility] Potassium 3.8 3.5 - 5.5 mmol/L LAB CHEMISTRY METHOD 03/24/2025 10:09 AM [facility] Chloride 99 96 - 110 mmol/L LAB CHEMISTRY METHOD 03/24/2025 10:09 AM [facility] CO2 33(H) 21 - 32 mmol/L LAB CHEMISTRY METHOD 03/24/2025 10:09 AM [facility] Anion Gap 7 3 - 11 LAB CHEMISTRY METHOD 03/24/2025 10:09 AM [facility] Glucose 81 70 - 100 mg/dL LAB CHEMISTRY METHOD 03/24/2025 10:09 AM [facility] BUN 19 5 - 25 mg/dL LAB CHEMISTRY METHOD 03/24/2025 10:09 AM [facility] Creatinine 1.00 0.50 - 1.10 mg/dL LAB CHEMISTRY METHOD 03/24/2025 10:09 AM [facility] eGFR 60 >=60 mL/min/1. 73m2 LAB CHEMISTRY METHOD 03/24/2025 10:09 AM EDT [facility] Comment:Calculation based on the Chronic Kidney Disease Epidemiology Collaboration (CKD-EPI) equation refit without adjustment for race. BUN/Creatinine Ratio 19.0 LAB CHEMISTRY METHOD 03/24/2025 10:09 AM EDT [facility] Calcium 8.6 8.5 - 10.5 mg/dL LAB CHEMISTRY METHOD 03/24/2025 10:09 AM T [facility] Blood Venous blood specimen / Unknown Venipuncture / Unknown 03/24/2025 7:22 AM EDT 03/24/2025 9:10 AM EDT us Conrado Melendez MD LAB BLOOD ORDERABLES Final Resul t [facility] [address] [place] [address], * (ABNORMAL) Complete blood count (03/24/2025 7:22 AM EDT) WBC 6.4 4.8 - 10.8 K/mcL LAB HEMETOLOGY METHOD 03/24/2025 9:43 AM [facility] RBC 4.10 3.80 - 4.80 M/mcL LAB HEMETOLOGY METHOD 03/24/2025 9:43 AM [facility] Hemoglobin 11.8 11.5 - 16.0 g/dL LAB HEMETOLOGY METHOD 03/24/2025 9:43 AM [facility] Hematocrit 38.0 35.0 - 47.0 % LAB HEMETOLOGY METHOD 03/24/2025 9:43 AM [facility] MCV 93.1 79.0 - 98.0 FL LAB HEMETOLOGY METHOD 03/24/2025 9:43 AM [facility] MCH 28.9 27.0 - 32.0 pcg LAB HEMETOLOGY METHOD 03/24/2025 9:43 AM EDT [facility] MCHC 31.1(L) 32.0 - 37.0 g/dL LAB HEMETOLOGY METHOD 03/24/2025 9:43 AM EDT [facility] RDW 14.0 11.0 - 15.0 % LAB HEMETOLOGY METHOD 03/24/2025 9:43 AM EDT [facility] Platelets 243 130 - 400 K/mcL LAB HEMETOLOGY METHOD 03/24/2025 9:43 AM EDT [facility] MPV 10.8 7.0 - 11.0 FL LAB HEMETOLOGY METHOD 03/24/2025 9:43 AM EDT [facility] NRBC 0.0 <1.0 % LAB HEMETOLOGY METHOD 03/24/2025 9:43 AM EDT [facility] NRBC Absolute 0.00 <0.10 K/mcL LAB HEMETOLOGY METHOD 03/24/2025 9:43 AM EDT [facility] Blood Venous blood specimen / Unknown Venipuncture / Unknown 03/24/2025 7:22 AM EDT 03/24/2025 9:10 AM EDT us Conrado Melendez MD LAB BLOOD ORDERABLES Final Resul t [facility] [address] [place] [address], documented in this encounter Visit Diagnoses Diagnosis Weakness Other malaise and fatigue Anxiety disorder, unspecified Chronic respiratory failure with hypoxia (CMS/HCC V24, CMS/HCC V28) documented in this encounter Care Teams Chief Yeoman Relationship Specialty Start Date End Date Conrado Melendez MD [address] [place] [address], [phone] PCP - General Family Medicine 05/27/25 documented as of this encounter
--- OUTSIDE RECORDS SUMMARY | 2025-07-10 14:10 | XMS_ITS | Encounter Summary ---
Author Organization [facility] Address [address] [place] [address] Care Team Providers Care Sports Equipment Supervisor Name Role Phone Conrado Melendez MD Primary Care Provider [phone] Encounter Details Date Type Department Care Team (Late Contact Info) Description 03/29/2025 Lab Requisition [facility] - Main Lab 299 [facility] [place] [address] Conrado Melendez MD 38 [facility] [address] [place], [address] Weakness; Anxiety disorder, unspecified; Chronic respiratory [...] 07/31/2025 10:35 AM EDT Office Visit [facility] 175 [facility] [address] [place] [address] Emma Bateman NP [address] [place] [address] 09/10/2025 10:00 AM EDT Ancillary Procedure [facility] - [address] [place] [address] documented as of this encounter Procedures Procedure Name Priority Date/Time Associated Diagnosis Comments COMPLETE BLOOD COUNT Routine 03/31/2025 9:53 AM EDT Weakness Anxiety disorder, unspecified Chronic respiratory failure with hypoxia (CMS/HCC V24, CMS/HCC V28) BASIC METABOLIC PANEL Routine 03/31/2025 9:53 AM EDT Weakness Anxiety disorder, unspecified Chronic respiratory failure with hypoxia (CMS/HCC V24, CMS/HCC V28) documented in this encounter Results * (ABNORMAL) Basic metabolic panel (03/31/2025 9:53 AM EDT) Sodium 138 133 - 145 mmol/L LAB CHEMISTRY METHOD 03/31/2025 12:54 PM [facility] Potassium 3.4(L) 3.5 - 5.5 mmol/L LAB CHEMISTRY METHOD 03/31/2025 12:54 PM [facility] Chloride 101 96 - 110 mmol/L LAB CHEMISTRY METHOD 03/31/2025 12:54 PM [facility] CO2 31 21 - 32 mmol/L LAB CHEMISTRY METHOD 03/31/2025 12:54 PM [facility] Anion Gap 6 3 - 11 LAB CHEMISTRY METHOD 03/31/2025 12:54 PM [facility] Glucose 134(H) 70 - 100 mg/dL LAB CHEMISTRY METHOD 03/31/2025 12:54 PM [facility] BUN 19 5 - 25 mg/dL LAB CHEMISTRY METHOD 03/31/2025 12:54 PM [facility] Creatinine 1.03 0.50 - 1.10 mg/dL LAB CHEMISTRY METHOD 03/31/2025 12:54 PM [facility] eGFR 58(L) >=60 mL/min/1. 73m2 LAB CHEMISTRY METHOD 03/31/2025 12:54 PM EDT [facility] Comment:Calculation based on the Chronic Kidney Disease Epidemiology Collaboration (CKD-EPI) equation refit without adjustment for race. BUN/Creatinine Ratio 18.4 LAB CHEMISTRY METHOD 03/31/2025 12:54 PM EDT [facility] Calcium 8.9 8.5 - 10.5 mg/dL LAB CHEMISTRY METHOD 03/31/2025 12:54 PM EDT [facility] Blood Venous blood specimen / Unknown Venipuncture / Unknown 03/31/2025 9:53 AM EDT 03/31/2025 11:09 AM EDT us Conrado Melendez MD LAB BLOOD ORDERABLES Final Resul t [facility] [address] [place] [address], * (ABNORMAL) Complete blood count (03/31/2025 9:53 AM EDT) WBC 7.3 4.8 - 10.8 K/mcL LAB HEMETOLOGY METHOD 03/31/2025 12:58 PM EDT [facility] RBC 4.20 3.80 - 4.80 M/[facility] LAB HEMETOLOGY METHOD 03/31/2025 12:58 PM EDT [facility] Hemoglobin 11.9 11.5 - 16.0 g/dL LAB HEMETOLOGY METHOD 03/31/2025 12:58 PM EDT [facility] Hematocrit 39.6 35.0 - 47.0 % LAB HEMETOLOGY METHOD 03/31/2025 12:58 PM EDT [facility] MCV 93.4 79.0 - 98.0 FL LAB HEMETOLOGY METHOD 03/31/2025 12:58 PM EDT [facility] MCH 28.1 27.0 - 32.0 pcg LAB HEMETOLOGY METHOD 03/31/2025 12:58 PM EDT [facility] MCHC 30.1(L) 32.0 - 37.0 g/dL LAB HEMETOLOGY METHOD 03/31/2025 12:58 PM EDT [facility] RDW 13.7 11.0 - 15.0 % LAB HEMETOLOGY METHOD 03/31/2025 12:58 PM EDT [facility] Platelets 255 130 - 400 K/mcL LAB HEMETOLOGY METHOD 03/31/2025 12:58 PM EDT [facility] MPV 11.0 7.0 - 11.0 FL LAB HEMETOLOGY METHOD 03/31/2025 12:58 PM EDT [facility] NRBC 0.0 <1.0 % LAB HEMETOLOGY METHOD 03/31/2025 12:58 PM EDT [facility] NRBC Absolute 0.00 <0.10 K/mcL LAB HEMETOLOGY METHOD 03/31/2025 12:58 PM EDT [facility] Blood Venous blood specimen / Unknown Venipuncture / Unknown 03/31/2025 9:53 AM EDT 03/31/2025 11:09 AM EDT us Conrado Melendez MD LAB BLOOD ORDERABLES Final Resul t [facility] [address] [place] [address], documented in this encounter Visit Diagnoses Diagnosis Weakness Other malaise and fatigue Anxiety disorder, unspecified Chronic respiratory failure with hypoxia (CMS/HCC V24, CMS/HCC V28) documented in this encounter Care Teams Sports Equipment Supervisor Relationship Specialty Start Date End Date Conrado Melendez MD [address] [place] [address], [phone] PCP - General Family Medicine 05/27/25 documented as of this encounter
--- OUTSIDE RECORDS SUMMARY | 2025-07-10 14:10 | XMS_ITS | Encounter Summary ---
Author Organization [facility] Address [address] [place] [address] Care Team Providers Care Director Of Music Therapy Name Role Phone Conrado Melendez MD Primary Care Provider [phone] Encounter Details Date Type Department Care Team (Late Contact Info) Description 02/09/2025 Lab Requisition [facility] - Main Lab 299 [facility] [place] [address] Conrado Melendez MD 38 [facility] [address] [place], [address] Weakness; Anxiety disorder, unspecified; Chronic respiratory [...] Description 07/31/2025 10:35 AM EDT Office Visit [facility] [address] [facility] [address] [place] [address] Emma Bateman NP [address] [place] [address] 09/10/2025 10:00 AM EDT Ancillary Procedure [facility] - [address] [place] [address] documented as of this encounter Procedures Procedure Name Priority Date/Time Associated Diagnosis Comments COMPLETE BLOOD COUNT Routine 02/10/2025 5:25 AM EDT Weakness Anxiety disorder, unspecified Chronic respiratory failure with hypoxia BASIC METABOLIC PANEL Routine 02/10/2025 5:25 AM EDT Weakness Anxiety disorder, unspecified Chronic respiratory failure with hypoxia documented in this encounter Results * (ABNORMAL) Basic metabolic panel (02/10/2025 5:25 AM EDT) Sodium 136 133 - 145 mmol/L LAB CHEMISTRY METHOD 02/10/2025 11:35 AM [facility] Potassium 3.3(L) 3.5 - 5.5 mmol/L LAB CHEMISTRY METHOD 02/10/2025 11:35 AM [facility] Chloride 90(L) 96 - 110 mmol/L LAB CHEMISTRY METHOD 02/10/2025 11:35 AM [facility] CO2 37(H) 21 - 32 mmol/L LAB CHEMISTRY METHOD 02/10/2025 11:35 AM [facility] Anion Gap 9 3 - 11 LAB CHEMISTRY METHOD 02/10/2025 11:35 AM [facility] Glucose 93 70 - 100 mg/dL LAB CHEMISTRY METHOD 02/10/2025 11:35 AM [facility] BUN 27(H) 5 - 25 mg/dL LAB CHEMISTRY METHOD 02/10/2025 11:35 AM [facility] Creatinine 1.03 0.50 - 1.10 mg/dL LAB CHEMISTRY METHOD 02/10/2025 11:35 AM [facility] eGFR 58(L) >=60 mL/min/1. 73m2 LAB CHEMISTRY METHOD 02/10/2025 11:35 AM EDT [facility] Comment:Calculation based on the Chronic Kidney Disease Epidemiology Collaboration (CKD-EPI) equation refit without adjustment for race. BUN/Creatinine Ratio 26.2 LAB CHEMISTRY METHOD 02/10/2025 11:35 AM EDT [facility] Calcium 9.1 8.5 - 10.5 mg/dL LAB CHEMISTRY METHOD 02/10/2025 11:35 AM EDT [facility] Blood Venous blood specimen / Unknown Venipuncture / Unknown 02/10/2025 5:25 AM EDT 02/10/2025 10:17 AM EDT us Conrado Melendez MD LAB BLOOD ORDERABLES Final Resul t [facility] [address] [place] [address], * (ABNORMAL) Complete blood count (02/10/2025 5:25 AM EDT) WBC 7.9 4.8 - 10.8 K/mcL LAB HEMETOLOGY METHOD [facility] RBC 4.20 3.80 - 4.80 M/mcL LAB HEMETOLOGY METHOD 02/10/2025 10:51 AM EDT [facility] Hemoglobin 12.0 11.5 - 16.0 g/dL LAB HEMETOLOGY METHOD 02/10/2025 10:51 AM T [facility] Hematocrit 40.4 35.0 - 47.0 % LAB HEMETOLOGY METHOD 02/10/2025 10:51 AM EDT [facility] MCV 96.7 79.0 - 98.0 FL LAB HEMETOLOGY METHOD 02/10/2025 10:51 AM [facility] MCH 28.7 27.0 - 32.0 pcg LAB HEMETOLOGY METHOD 02/10/2025 10:51 AM EDT [facility] MCHC 29.7(L) 32.0 - 37.0 g/dL LAB HEMETOLOGY METHOD 02/10/2025 10:51 AM EDT [facility] RDW 14.6 11.0 - 15.0 % LAB HEMETOLOGY METHOD 02/10/2025 10:51 AM EDT [facility] Platelets 254 130 - 400 K/mcL LAB HEMETOLOGY METHOD 02/10/2025 10:51 AM EDT [facility] MPV 10.7 7.0 - 11.0 FL LAB HEMETOLOGY METHOD 02/10/2025 10:51 AM EDT [facility] NRBC 0.0 <1.0 % LAB HEMETOLOGY METHOD 02/10/2025 10:51 AM EDT [facility] NRBC Absolute 0.00 <0.10 K/mcL LAB HEMETOLOGY METHOD 02/10/2025 10:51 AM EDT [facility] Blood Venous blood specimen / Unknown Venipuncture / Unknown 02/10/2025 5:25 AM EDT 02/10/2025 10:17 AM EDT us Conrado Melendez MD LAB BLOOD ORDERABLES Final Resul t [facility] [address] [place] [address], documented in this encounter Visit Diagnoses Diagnosis Weakness Other malaise and fatigue Anxiety disorder, unspecified Chronic respiratory failure with hypoxia (CMS/HCC V24, CMS/HCC V28) documented in this encounter Care Teams Director Of Music Therapy Relationship Specialty Start Date End Date Conrado Melendez MD [address] [place] [address], [phone] PCP - General Family Medicine 05/27/25 documented as of this encounter
--- OUTSIDE RECORDS SUMMARY | 2025-07-10 14:10 | XMS_ITS | Encounter Summary ---
Author Organization [facility] Address [address] [place] [address] Care Team Providers Care Jewel Blocker And Sawyer Name Role Phone Conrado Melendez MD Primary Care Provider [phone] Encounter Details Date Type Department Care Team (Late Contact Info) Description 02/18/2025 Lab Requisition [facility] - Main Lab 299 [facility] [place] [address] Conrado Melendez MD 38 [facility] [address] [place], [address] Heart failure, unspecified (CMS/HCC V24, CMS/HCC [...] Description 07/31/2025 10:35 AM EDT Office Visit [facility] 175 [facility] [address] [place] [address] Emma Bateman NP [address] [place] [address] 09/10/2025 10:00 AM EDT Ancillary Procedure [facility] - [address] [place] [address] documented as of this encounter Procedures Procedure Name Priority Date/Time Associated Diagnosis Comments BASIC METABOLIC PANEL Routine 02/19/2025 12:53 AM EDT Heart failure, unspecified (CMS/HCC) documented in this encounter Results * (ABNORMAL) Basic metabolic panel (02/19/2025 12:53 AM EDT) Sodium 138 133 - 145 mmol/L LAB CHEMISTRY METHOD 02/19/2025 9:54 AM [facility] Potassium 4.2 3.5 - 5.5 mmol/L LAB CHEMISTRY METHOD 02/19/2025 9:54 AM [facility] Chloride 98 96 - 110 mmol/L LAB CHEMISTRY METHOD 02/19/2025 9:54 AM [facility] CO2 37(H) 21 - 32 mmol/L LAB CHEMISTRY METHOD 02/19/2025 9:54 AM [facility] Anion Gap 3 3 - 11 LAB CHEMISTRY METHOD 02/19/2025 9:54 AM [facility] Glucose 88 70 - 100 mg/dL LAB CHEMISTRY METHOD 02/19/2025 9:54 AM [facility] BUN 25 5 - 25 mg/dL LAB CHEMISTRY METHOD 02/19/2025 9:54 AM [facility] Creatinine 1.08 0.50 - 1.10 mg/dL LAB CHEMISTRY METHOD 02/19/2025 9:54 AM [facility] eGFR 54(L) >=60 mL/min/1. 73m2 LAB CHEMISTRY METHOD 02/19/2025 9:54 AM [facility] Comment:Calculation based on the Chronic Kidney Disease Epidemiology Collaboration (CKD-EPI) equation refit without adjustment for race. BUN/Creatinine Ratio 23.1 LAB CHEMISTRY METHOD 02/19/2025 9:54 AM EDT [facility] Calcium 9.1 8.5 - 10.5 mg/dL LAB CHEMISTRY METHOD 02/19/2025 9:54 AM EDT [facility] Blood Venous blood specimen / Unknown Venipuncture / Unknown 02/19/2025 12:53 AM EDT 02/19/2025 9:15 AM EDT us Conrado Melendez MD LAB BLOOD ORDERABLES Final Resul t [facility] [address] [place] [address], documented in this encounter Visit Diagnoses Diagnosis Heart failure, unspecified (CMS/HCC V24, CMS/HCC V28) Heart failure, unspecified documented in this encounter Care Teams Jewel Blocker And Sawyer Relationship Specialty Start Date End Date Conrado Melendez MD [address] [place] [address], [phone] PCP - General Family Medicine 05/27/25 documented as of this encounter
--- OUTSIDE RECORDS SUMMARY | 2025-07-10 14:10 | XMS_ITS | Encounter Summary ---
Author Organization [facility] Address [address] [place] [address] Care Team Providers Care Human Resources Technician Name Role Phone Conrado Melendez MD Primary Care Provider [phone] Encounter Details Date Type Department Care Team (Late Contact Info) Description 02/14/2025 Lab Requisition [facility] - Main Lab 299 [facility] [place] [address] Conrado Melendez MD 38 [facility] [address] [place], [address] Weakness; Anxiety disorder, unspecified; Chronic respiratory [...] Description 07/31/2025 10:35 AM EDT Office Visit [facility] [address] [facility] [address] [place] [address] Emma Bateman NP [address] [place] [address] 09/10/2025 10:00 AM EDT Ancillary Procedure [facility] - [address] [place] [address] documented as of this encounter Procedures Procedure Name Priority Date/Time Associated Diagnosis Comments COMPLETE BLOOD COUNT Routine 02/17/2025 6:03 AM EDT Weakness Anxiety disorder, unspecified Chronic respiratory failure with hypoxia BASIC METABOLIC PANEL Routine 02/17/2025 6:03 AM EDT Weakness Anxiety disorder, unspecified Chronic respiratory failure with hypoxia documented in this encounter Results * (ABNORMAL) Basic metabolic panel (02/17/2025 6:03 AM EDT) Sodium 139 133 - 145 mmol/L LAB CHEMISTRY METHOD 02/17/2025 1:25 PM [facility] Potassium 3.9 3.5 - 5.5 mmol/L LAB CHEMISTRY METHOD 02/17/2025 1:25 PM [facility] Chloride 100 96 - 110 mmol/L LAB CHEMISTRY METHOD 02/17/2025 1:25 PM [facility] CO2 34(H) 21 - 32 mmol/L LAB CHEMISTRY METHOD 02/17/2025 1:25 PM [facility] Anion Gap 5 3 - 11 LAB CHEMISTRY METHOD 02/17/2025 1:25 PM [facility] Glucose 96 70 - 100 mg/dL LAB CHEMISTRY METHOD 02/17/2025 1:25 PM [facility] BUN 20 5 - 25 mg/dL LAB CHEMISTRY METHOD 02/17/2025 1:25 PM [facility] Creatinine 0.86 0.50 - 1.10 mg/dL LAB CHEMISTRY METHOD 02/17/2025 1:25 PM [facility] eGFR 71 >=60 mL/min/1. 73m2 LAB CHEMISTRY METHOD 02/17/2025 1:25 PM [facility] Comment:Calculation based on the Chronic Kidney Disease Epidemiology Collaboration (CKD-EPI) equation refit without adjustment for race. BUN/Creatinine Ratio 23.3 LAB CHEMISTRY METHOD 02/17/2025 1:[address] [facility] Calcium 8.9 8.5 - 10.5 mg/dL LAB CHEMISTRY METHOD 02/17/2025 1:[address] [facility] Blood Venous blood specimen / Unknown Venipuncture / Unknown 02/17/2025 6:03 AM EDT 02/17/2025 10:27 AM EDT us Conrado Melendez MD LAB BLOOD ORDERABLES Final Resul t [facility] [address] [place] [address], * (ABNORMAL) Complete blood count (02/17/2025 6:03 AM EDT) WBC 6.7 4.8 - 10.8 K/mcL LAB HEMETOLOGY METHOD 02/17/2025 11:[address] [facility] RBC 4.20 3.80 - 4.80 M/mcL LAB HEMETOLOGY METHOD 02/17/2025 11:40 AM [facility] Hemoglobin 12.2 11.5 - 16.0 g/dL LAB HEMETOLOGY METHOD 02/17/2025 11:[address] [facility] Hematocrit 40.2 35.0 - 47.0 % LAB HEMETOLOGY METHOD 02/17/2025 11:[address] [facility] MCV 94.8 79.0 - 98.0 FL LAB HEMETOLOGY METHOD 02/17/2025 11:40 AM [facility] MCH 28.8 27.0 - 32.0 pcg LAB HEMETOLOGY METHOD 02/17/2025 11:[address] [facility] MCHC 30.3(L) 32.0 - 37.0 g/dL LAB HEMETOLOGY METHOD 02/17/2025 11:[address] [facility] RDW 14.5 11.0 - 15.0 % LAB HEMETOLOGY METHOD 02/17/2025 11:[address] [facility] Platelets 244 130 - 400 K/mcL LAB HEMETOLOGY METHOD 02/17/2025 11:[address] [facility] MPV 11.0 7.0 - 11.0 FL LAB HEMETOLOGY METHOD 02/17/2025 11:[address] [facility] NRBC 0.0 <1.0 % LAB HEMETOLOGY METHOD 02/17/2025 11:[address] [facility] NRBC Absolute 0.00 <0.10 K/mcL LAB HEMETOLOGY METHOD 02/17/2025 11:[address] [facility] Blood Venous blood specimen / Unknown Venipuncture / Unknown 02/17/2025 6:03 AM EDT 02/17/2025 10:27 AM EDT us Conrado Melendez MD LAB BLOOD ORDERABLES Final Resul t [facility] [address] [place] [address], documented in this encounter Visit Diagnoses Diagnosis Weakness Other malaise and fatigue Anxiety disorder, unspecified Chronic respiratory failure with hypoxia (CMS/HCC V24, CMS/HCC V28) documented in this encounter Care Teams Human Resources Technician Relationship Specialty Start Date End Date Conrado Melendez MD [address] [place] [address], [phone] PCP - General Family Medicine 05/27/25 documented as of this encounter
--- OUTSIDE RECORDS SUMMARY | 2025-07-10 14:10 | XMS_ITS | Clinical Summary ---
Author Organization [address] [place] [address] Address [address] [place] [address] Phone Care Team Providers Care Orthopedic Assistant Name Role Phone Conrado Melendez MD Primary Care Provider [phone] Allergies Active Allergy Reactions Criticality Noted Date Comments Aspirin Low 04/01/2024 Codeine Headache 03/28/2011 Fruit Extracts Medium 04/01/2024 Honeydew Melon Nsaids (Non-Steroidal Anti-Inflammatory Drug) Other 03/06/2013 Easy bleeder Medications polycarbophil (FIBERCON) 625 mg tablet Take 2 tablets (1,250 mg total) by mouth. Active albuterol sulfate (ProAir RespiClick) 90 mcg/actuation aerosol powdr breath activated Inhale by mouth. Act ebony metOLazone (ZAROXOLYN) 2.5 mg tablet Take 1 tablet (2.5 mg total) by mouth 1 (one) time if needed. 4 Active tamsulosin (FLOMAX) 0.4 mg 24 hr capsule Take 1 capsule (0.4 mg total) by mouth 1 (one) time each day. Active Lactobacillus acidophilus (PROBIOTIC ACIDOPHILUS ORAL) Take 1 tablet by mouth 1 (one) time each day. Active oxyCODONE-aceta minophen (PERCOCET) 7.5-325 mg per tablet Take 1 tablet by mouth 4 (four) times a day if needed. Active cetirizine (ZyrTEC) 10 mg tablet Take 1 tablet (10 mg total) by mouth 1 (one) time each day. Active montelukast (SINGULAIR) 10 mg tablet Take 1 tablet (10 mg total) by mouth 1 (one) time each day in the evening. Active docusate sodium (COLACE) 100 mg capsule 4 Active venlafaxine (EFFEXOR) 75 mg tablet Take 1 tablet (75 mg total) by mouth 1 (one) time each day. with food Active venlafaxine XR (EFFEXOR-XR) 150 mg 24 hr capsule Take 1 capsule (150 mg total) by mouth 1 (one) time each day. with food Active senna (SENOKOT) 8.6 mg tablet TAKE 2 TABS BY MOUTH AT BEDTIME. 1 Active pregabalin (LYRICA) 150 mg capsule TAKE 1 CAPSULE BY MOUTH THREE TIMES A DAY FOR 30 DAYS Active gabapentin (NEURONTIN) 800 mg tablet Take 1 tablet (800 mg total) by mouth. Active topiramate (TOPAMAX) 50 mg tablet Take 1 tablet (50 mg total) by mouth 2 (two) times a day. Active metFORMIN (GLUCOPHAGE) 500 mg tablet Take 1 tablet (500 mg total) by mouth 2 (two) times a day with meals. Active atorvastatin (LIPITOR) 40 mg tablet Take 1 tablet (40 mg total) by mouth 1 (one) time each day. Active multivitamin (MULTIPLE VITAMINS ORAL) Take 1 tablet by mouth 1 (one) time each day. Active omeprazole (PriLOSEC) [address] capsule Take 1 capsule (20 mg total) by mouth 1 (one) time each day. Active levothyroxine (SYNTHROID, LEVOTHROID) 50 mcg tablet Take 1 tablet (50 mcg total) by mouth 1 (one) time each day. Active Oxygen Therapy (O2) gas Inhale by mouth. Act ebony torsemide (DEMADEX) 20 mg tablet Take 3 tablets (60 mg total) by mouth 2 (two) times a day. 3 tabs bid 504 tablet 1 5 Active empagliflozin (Jardiance) 10 mg tablet TAKE 1 TABLET BY MOUTH EVERY DAY 90 tablet 2 5 Active Additional Information Patient not taking.Reported on 05/29/2025 potassium chloride (KLOR-CON M20) 20 mEq CR tablet Take 1 tablet (20 mEq total) by mouth 2 (two) times a day. Tablet may be swallowed whole (do not crush/chew/suck on) OR broken in half and each half swallowed separately OR dissolved (whole tablet) in ~4 ounces of water (allow ~2 minutes to dissolve, stir well and administer immediately). 90 each 1 5 01/06/20 26 Active polyethylene glycol (PEG) 17 gram/dose oral powder DISSOLVE 17 GRAMS IN 8 OZ OF FLUID LIQUID DRINK DAILY DIRECTED 238 g 5 Active spironolactone (ALDACTONE) 25 mg tablet Take 2 tablets (50 mg total) by mouth 1 (one) time each day. 5 Active fluticasone propionate (FLONASE) 50 mcg/actuation nasal sprayIndication s:Chronic rhinitis Administer 1 spray into each nostril 1 (one) time each day. 16 g 11 5 Active ipratropium-alb uteroL (DUONEB) 0.5-2.5 mg/3 mL nebulizer solutionIndicat ions:Chronic obstructive pulmonary disease, unspecified COPD type (CMS/[facility] V24, CMS/[facility] V28) Take 3 mL by nebulization every 6 (six) hours if needed for wheezing or shortness of breath (cough or chest tighness). 360 mL 11 5 03/08/20 26 Active melatonin 3 mg tablet Take 2 tablets (6 mg total) by mouth at bedtime. Active buPROPion (WELLBUTRIN) 100 mg tablet Take 1 tablet (100 mg total) by mouth 1 (one) time each day. Active bisacodyL (FLEET BISACODYL) 10 mg/30 mL enema Insert 30 mL (10 mg total) into the rectum 1 (one) time. Active benzonatate (TESSALON) 100 mg capsule Take 1 capsule (100 mg total) by mouth 3 (three) times a day if needed for cough. Do not crush or chew. Active guaiFENesin (MUCINEX) 600 mg 12 hr tablet Take 2 tablets (1,200 mg total) by mouth 2 (two) times a day. Do not crush, chew, or split. Active lidocaine 4 % patch Apply 1 patch topically. Active Incruse Ellipta 62.5 mcg/actuation inhalationIndic ations:Chronic obstructive pulmonary disease, unspecified COPD type (CMS/[facility] V24, [facility] V28) Inhale 1 puff by mouth 1 (one) time each day. 1 each 11 5 Active Breo Ellipta 100-25 mcg/dose inhalerIndicati ons:Chronic obstructive pulmonary disease, unspecified COPD type ([facility] V24, [facility] V28) Inhale 1 puff by mouth 1 (one) time each day. INHALE 1 PUFF EVERY DAY AT THE SAME TIME EACH DAY 1 each 5 Active Active Problems Problem Noted Date Diagnosed Date Aortic aneurysm without rupture ([facility] V24) Assessment & Plan (05/27/2025 9:41 AM EDT): Mildly dilated at 3.9 cm on most recent echocardiogram. Will update this in 3 months. Chronic rhinitis 03/08/2025 KYLER on CPAP 03/08/2025 Hypertension 08/29/2024 Assessment & Plan (05/27/2025 9:40 AM EDT): Blood pressure is well-controlled. Continue current medication regiment. Assessment & Plan (01/06/2025 1:23 PM EST): Patient blood pressure is well-controlled today. Continue current addition. Hyperlipidemia 08/29/2024 Assessment & Plan (05/27/2025 9:41 AM EDT): Controlled lipid profile on current dose statin. Please continue. Assessment & Plan (01/06/2025 1:23 PM EST): Would like LDL to be at 70. Can draw a lipid profile in 3 months. Patient is currently utilizing statin. Pulmonary emphysema ([facility] V24, [facility] V28) 0 04/01/2024 Hypokalemia 03/28/2024 Overview (09/30/2024): Last Assessment & Plan: Patient's recent labs on 07/14/2024 demonstrated the patient's potassium levels are within normal limits. Will continue to monitor. Acute on chronic heart failure ([facility] V24, [facility] V28) 03/22/2024 Overview (05/27/2025): - Seen at [facility] ER in early February 2024 and was given a dose of 100 mg IV Lasix x 1 with increase in oral Lasix dose - Seen again in early March 2024 and again was given a dose of IV Lasix in the ER and discharged again with increase in oral Lasix dose - Was hospitalized at [facility] after suffering a syncopal event thought to be vasovagal in nature in mid March 2024 - Then came back and was hospitalized again at [facility] in mid to late April 2024 for CHF exacerbation -Echocardiogram most recently from 05/08/2024 showing normal left ventricular cavity size, wall thickness, and systolic function, normal regional wall motion with an ejection fraction of 55 to 60%, paradoxic septal motion that seems to vary with the respiratory cycle of unclear etiology, normal tissue Doppler velocities indicating normal left ventricular diastolic function, mildly dilated right ventricle with normal systolic function, normal right atrial pressure, no hemodynamically significant valve disease, minimally dilated ascending aorta at 3.9 cm- recommended consideration of constriction as a possible diagnosis for recurrent heart failure exacerbations -Cath 05/2024 showed no obstructive CAD, LVEDP, no significant gradient across aortic valve on pullback, mildly elevated right-sided filling pressures, and hemodynamic tracings do not suggest evidence of constrictive physiology Last Assessment & Plan: The patient had another hospitalization for congestive heart failure and was diuresed. Recommendation was to either increase her torsemide to twice daily and/or add MRA. To start, we will add Aldactone 12.5 mg daily with a basic metabolic profile in about a week's time. If her renal function and electrolyte support, would increase to 25 mg daily. She will otherwise continue her once daily torsemide and her SGLT2 inhibitor. She is not excited about taking twice daily torsemide as it was presented to her to take it at night. However, we discussed taking it in the late afternoon to avoid significant nocturia. If needed, the patient would be agreeable to increasing her diuretic to twice daily. However, we are going to start with MRA as GDMT for her HFpEF. The patient and her daughter understand and agree. Assessment & Plan (05/27/2025 9:40 AM EDT): Patient appears euvolemic on exam. Please continue with the 50 mg of spironolactone and the torsemide 60 mg p.o. twice daily. I would like her to continue to limit her sodium consumption. She should continue to check her weights daily. Can utilize metolazone if she reaches 290 pounds as she has been. Please reach out to the office if he gains more than 2 pounds in a day or 5 pounds in a week. Will look to update an echocardiogram in 3 months. Assessment & Plan (01/06/2025 1:23 PM EST): Patient here to have some peripheral edema on exam today. Lung sounds are clear. She reports she is up about 9 pounds from her dry weight. I am going to the patient increase her torsemide dosage from 60 mg p.o. twice daily to 80 mg p.o. twice daily for 1 week and then to redraw a BMP. She we will continue on her other medications. Can have her continue to wear self daily. Reach out to the office if he gains more than 2 pounds a day or 5 pounds in a week. Encouraged her to utilize metolazone. After speaking with patient it seems that the primary culprit still is sodium consumption. I educated her that this absolutely needs to be reduced or she will continue to have problems with her heart failure. Orders: Basic metabolic panel; Future Morbid obesity ([facility] V24, [facility] V28) 2023 Overview (09/30/2024): Last Assessment & Plan: Patient will continue to take daily weight measurements. Should work on heart healthy diet. Avoid excessive sodium. Will consider for the patient starting a daily food log to assess intake. Diabetes mellitus type 2, no ninsulin dependent ([facility] V24, [facility] V28) 03/22/2024 Resolved Problems Problem Noted Date Diagnosed Date Resolved Date Acute on chronic heart failu re with preserved ejection fraction ([facility] V24, [facility] V28) 10/31/2024 03/14/2025 Encounters Date Type Department Care Team Description 06/20/2025 Lab Requisition [facility] - Main Lab [address] [place] [address] Conrado Melendez MD Urinary tract infection, site not specified 06/12/2025 Lab Requisition [facility] Lab [address] [place] [phone] Conrado Melendez MD Essential (primary) hypertension; Hyperlipidemia, unspecified 06/09/2025 [facility] [address] [facility] [address] [place] [phone] Emma Bateman NP 06/06[facility]20[facility] [address] [address] Albertina Colon MA 05/29/2025 11:25 AM EDT [facility] [address] [facility] [address] [place] [phone] Emma Bateman NP Cough productive of yellow sputum (Primary Dx); Chronic obstructive pulmonary disease, unspecified COPD type ([facility] V24, CMS/[facility] V28); Acute on chronic heart failure with preserved ejection fraction ([facility] V24, CMS/HCC V28); KYLER on CPAP; Morbid obesity ([facility] V24, [facility] V28) 05/27/2025 9:10 AM EDT Office Visit [facility] [address] [facility] [address] [place] [phone] Arvind Haney NP Acute on chronic diastolic heart failure (CMS/[facility] V24, CMS/[facility] V28) (Primary Dx); Mixed hyperlipidemia; Primary hypertension; Aortic aneurysm without rupture, unspecified portion of aorta ([facility] V24) 05/22/2025 Lab Requisition [facility] Lab [address] [place] [address] Conrado Melendez MD Type 2 diabetes mellitus without complications ([facility] V24, [facility] V28) 05/06/2025 Lab Requisition [facility] Lab [address] [place] [address] Conrado Melendez MD Urinary tract infection, site not specified; Heart failure, unspecified ([facility] V24, [facility] V28); Type 2 diabetes mellitus without complications ([facility] V24, [facility] V28); Chronic obstructive pulmonary disease, unspecified ([facility] V24, [facility] V28) 04/14/2025 Lab Requisition [facility] Lab [address] [facility] [place] [address] Conrado Melendez MD Heart failure, unspecified ([facility] V24, [facility] V28) 04/13/2025 Lab Requisition [facility] Lab [address] [facility] [place] [address] Conrado Melendez MD Essential (primary) hypertension; Type 2 diabetes mellitus without complications ([facility] V24, [facility] V28); Heart failure, unspecified ([facility] V24, [facility] V28); Personal history of transient ischemic attack (TIA), and cerebral infarction without residual deficits from Last 3 Months Immunizations Name Administration Dates Next Due Influenza trivalent, 0.5mL ( Fluad) 65yo and older 08/08/2019,08/09/2018,08/21/2017 Influenza trivalent, with pr eservative (Fluzone; Afluria) 6mo and older 08/17/2023 Pneumococcal conjugate 13 va lent (Prevnar 13, PCV13) 2mo and older 08/25/2017 Surgical History Surgery Date Site/Laterality Comments BACK SURGERY 2019 PROCEDURE: HISTORICAL BACK SURGERY; COMMENT: Dr. Miller CARDIAC CATHETERIZATION DONE ON 05/30/2024 AT [facility] INDICATIONS:CHF Medical History Medical History Date Comments Spinal stenosis, lumbar 03/28/2011 DX:Spina l stenosis, lumbar Hypertension DX:Hypertension COPD (chronic obstructive pu lmonary disease) ([facility] V24, [facility] V28) DX:COPD (chronic o bstructive pulmonary disease) ([facility]) Hyperlipidemia DX:Hyperlipidemi a Morbid obesity ([facility] V24, [facility] V28) DX:Morbid obesity ([facility]) Hypothyroidism DX:Hypothyroidis m Type 2 diabetes mellitus (CM S/HCC V24, CMS/HCC V28) DX:Type 2 diabetes mellitus (HCC) Depression DX:Depression Obesity Family History Medical History Relation Name Comments Autoimmune disease Neg Hx Breast cancer Neg Hx Colon cancer Neg Hx Coronary artery disease Neg Hx Diabetes Neg Hx Heart attack Neg Hx Heart failure Neg Hx Hyperlipidemia Neg Hx Hypertension Neg Hx Mental illness Neg Hx Prostate cancer Neg Hx Sleep apnea Neg Hx Thyroid disease Neg Hx Social History Tobacco Use Types Packs/Day Years [...] on file Sexual Orientation Not on file Obstetrics History Last Filed Vital Signs Vital Sign Reading Time Taken Comments Blood Pressure 113/59 05/29/2025 11:17 AM EDT Pulse 66 05/29/2025 11:17 AM EDT Temperature 35.6 C (96 F) 05/29/2025 11:17 AM EDT Respiratory Rate 18 05/29/2025 11:17 AM EDT Oxygen Saturation 96% 05/29/2025 11:17 AM EDT with 2L O2 Inhaled Oxygen Concentration - - Weight 129 kg (285 lb) 05/27/2025 9:12 AM EDT Height 162.6 cm (5' 4 ) 05/27/2025 9:12 AM EDT Body Mass Index 48.92 05/27/2025 9:12 AM EDT Plan of Treatment Upcoming Encounters Date Type Department Care Team (Late st Contact Info) Description 07/31/2025 10:35 AM EDT Office Visit [facility] [place] [address] [place] [address] Emma Bateman, KRITSI [address] [place] [address] 09/10/2025 10:00 AM EDT Ancillary Procedure [facility] [address] [place] [phone] Health Maintenance Due Date Last Done Comments Diabetes: Annual Foot Exam 1961 Diabetes: Annual Retina Eye Exam 1961 DTaP,Tdap,and Td Vaccines (1 - Tdap) 1970 Zoster Vaccines (1 of 2) 2001 Breast Cancer Screening 08/06/2014 08/06/2012 Pneumococcal Vaccine: 50+ Years (2 of 2 - PPSV23) 10/20/2017 08/25/2017 Cholesterol Screening (Lipid Panel) 10/16/2022 Colorectal Cancer Screening: Colonoscopy 10/16/2022 Falls Risk Assessment 10/16/2022 Hepatitis C Screening 10/16/2022 Osteoporosis Screening (Bone Density Screening) 10/16/2022 Social Influencers of Health Screening 10/16/2022 Diabetes: Annual Urine Albumin-Creatinine Ratio (uACR) 06/06/2024 COVID-19 Vaccine ( season) 2024 08/17/2022, 03/01/2022, 08/26/2021, Additional history exists Depression Screening 11/13/2024 Influenza Vaccine (#1) 2025 , 08/17/2023, 08/04/2022, Additional history exists Diabetes: Blood Sugar Control Test (HGBA1C) 10/09/2025 04/08/2025 Diabetes: Annual GFR (Glomerular Filtration Rate) 06/13/2026 06/13/2025, 04/14/2025, 03/31/2025, Additional history exists Hypertension/CHF/CAD Annual BMP Blood Test 06/13/2026 06/13/2025, 04/14/2025, 03/31/2025, Additional history exists RSV Immunization Adult Patients Completed 01/23/2024 HIB Vaccines Aged Out No longer eligi ble based on patient's age to complete this topic HPV Vaccines Aged Out No longer eligi ble based on patient's age to complete this topic Hepatitis A Vaccines Aged Out No long er eligible based on patient's age to complete this topic Hepatitis B Vaccines Aged Out No long er eligible based on patient's age to complete this topic IPV Vaccines Aged Out No longer eligi ble based on patient's age to complete this topic MMR Vaccines Aged Out No longer eligi ble based on patient's age to complete this topic Meningococcal ACWY Vaccine Aged Out N o longer eligible based on patient's age to complete this topic Meningococcal B Vaccine Aged Out No l onger eligible based on patient's age to complete this topic RSV Immunization Patients Under 20 months Aged Out No longer eligible based on patient's age to complete this topic Varicella Vaccines Aged Out No longer eligible based on patient's age to complete this topic Procedures Procedure Name Priority Date/Time Associated Diagnosis Comments URINALYSIS WITH REFLEX MICROSCOPIC AND CULTURE Routine 06/20/2025 6:15 AM EDT Urinary tract infection, site not specified OGLESBY URINE CULTURE TUBE Routine 06/20/2025 6:15 AM EDT Urinary tract infection, site not specified URINALYSIS WITH REFLEX MICROSCOPIC AND CULTURE Routine 06/20/2025 6:15 AM EDT Urinary tract infection, site not specified CULTURE URINE Routine 06/20/2025 6:15 AM EDT Urinary tract infection, site not specified BASIC METABOLIC PANEL Routine 06/13/2025 7:12 AM EDT Essential (primary) hypertension Hyperlipidemia, unspecified COMPLETE BLOOD COUNT Routine 06/13/2025 7:12 AM EDT Essential (primary) hypertension Hyperlipidemia, unspecified EXTERNAL XRAY REPORT 06/09/2025 CBC WITH AUTO DIFFERENTIAL Routine 05/22/2025 9:13 AM EDT Type 2 diabetes mellitus without complications (CMS/HCC V24, CMS/HCC V28) CBC AND DIFFERENTIAL Routine 05/22/2025 9:13 AM EDT Type 2 diabetes mellitus without complications (CMS/HCC V24, CMS/HCC V28) URINALYSIS WITH REFLEX MICROSCOPIC Routine 05/06/2025 2:00 AM EDT Urinary tract infection, site not specified Heart failure, unspecified (CMS/HCC V24, CMS/HCC V28) Type 2 diabetes mellitus without complications (CMS/HCC V24, CMS/HCC V28) Chronic obstructive pulmonary disease, unspecified (CMS/HCC V24, CMS/HCC V28) URINALYSIS WITH REFLEX MICROSCOPIC Routine 05/06/2025 2:00 AM EDT Urinary tract infection, site not specified Heart failure, unspecified (CMS/HCC V24, CMS/HCC V28) Type 2 diabetes mellitus without complications (CMS/HCC V24, CMS/HCC V28) Chronic obstructive pulmonary disease, unspecified (CMS/HCC V24, CMS/HCC V28) CULTURE URINE Routine 05/06/2025 2:00 AM EDT Urinary tract infection, site not specified Heart failure, unspecified (CMS/HCC V24, CMS/HCC V28) Type 2 diabetes mellitus without complications (CMS/HCC V24, CMS/HCC V28) Chronic obstructive pulmonary disease, unspecified (CMS/HCC V24, CMS/HCC V28) CBC WITH AUTO DIFFERENTIAL Routine 04/14/2025 8:38 AM EDT Heart failure, unspecified (CMS/HCC V24, CMS/HCC V28) BASIC METABOLIC PANEL Routine 04/14/2025 8:38 AM EDT Heart failure, unspecified (CMS/HCC V24, CMS/HCC V28) CBC AND DIFFERENTIAL Routine 04/14/2025 8:38 AM EDT Heart failure, unspecified (CMS/HCC V24, CMS/HCC V28) OGLESBY URINE CULTURE TUBE Routine 04/12/2025 12:00 [...] hypertension Type 2 diabetes mellitus without complications ([facility] V24, [facility] V28) Heart failure, unspecified ([facility] V24, [facility] V28) Personal history of transient ischemic attack (TIA), and cerebral infarction without residual deficits CULTURE URINE Routine 04/12/2025 12:00 PM EDT Essential (primary) hypertension Type 2 diabetes mellitus without complications ([facility] V24, [facility] V28) Heart failure, unspecified ([facility] V24, [facility] V28) Personal history of transient ischemic attack (TIA), and cerebral infarction without residual deficits HEMOGLOBIN A1C Routine 04/08/2025 8:20 AM EDT Essential (primary) hypertension Hyperlipidemia, unspecified from Last 3 Months or Most Recently Relevant to Health Maintenance Results * (ABNORMAL) Urinalysis with reflex microscopic and culture (06/20/2025 6:15 AM EDT) Only the most recent of2 resultswithin the time period is included. Specific Fults Urine 1.015 1.003 - 1.030 LAB URINALYSIS - AUTOMATED METHOD 06/20/2025 10:13 AM [facility] pH, Urine 5.5 5.0 - 8.0 pH LAB URINALYSIS - AUTOMATED METHOD 06/20/2025 10:13 AM [facility] Leukocytes, Urine Moderate(A) Negative LAB URINALYSIS - AUTOMATED METHOD 06/20/2025 10:13 AM [facility] Nitrite, Urine Negative Negative LAB URINALYSIS - AUTOMATED METHOD 06/20/2025 10:13 AM [facility] Protein, Urine Negative <=Trace mg/dL LAB URINALYSIS - AUTOMATED METHOD 06/20/2025 10:13 AM [facility] Glucose, Urine Negative Negative mg/dL LAB URINALYSIS - AUTOMATED METHOD 06/20/2025 10:13 AM [facility] Ketones, Urine Negative Negative mg/dL LAB URINALYSIS - AUTOMATED METHOD 06/20/2025 10:13 AM [facility] Urobilinogen , Urine 1.0 0.2 - 1.0 mg/dL LAB URINALYSIS - AUTOMATED METHOD 06/20/2025 10:13 AM [facility] Bilirubin, Urine Negative Negative LAB URINALYSIS - AUTOMATED METHOD 06/20/2025 10:13 AM [facility] Blood, Urine Negative Negative LAB URINALYSIS - AUTOMATED METHOD 06/20/2025 10:13 AM [facility] [facility] RBC, Urine 0.6 0 - 4 /HPF LAB URINALYSIS - AUTOMATED METHOD 06/20/2025 10:13 AM [facility] WBC, Urine 11.5(H) 0 - 4 /HPF LAB URINALYSIS - AUTOMATED METHOD 06/20/2025 10:13 AM [facility] Squamous Epithelial, Urine 86(H) 0 - 60 /LPF LAB URINALYSIS - AUTOMATED METHOD 06/20/2025 10:13 AM [facility] Bacteria, Urine Negative Negative /HPF LAB URINALYSIS - AUTOMATED METHOD 06/20/2025 10:13 AM [facility] Hyaline Casts, Urine 0.0 0 - 3 /LPF LAB URINALYSIS - AUTOMATED METHOD 06/20/2025 10:13 AM [facility] Urine Urine specimen obtained by clean catch procedure / Unknown 06/20/2025 6:15 AM EDT 06/20/2025 9:19 AM EDT us Conrado Melendez MD LAB URINE ORDERABLES Final Resul t [facility] [address] [place] [address], * [place] urine culture tube (06/20/2025 6:15 AM EDT) Only the most recent of2 resultswithin the time period is included. Extra Tube Hold for add-ons. 06/20/2025 11:01 AM EDT [facility] Comment:Auto resulted. Urine Urine specimen obtained by clean catch procedure / Unknown 06/20/2025 6:15 AM EDT 06/20/2025 9:19 AM EDT us Conrado Melendez MD LAB URINE ORDERABLES Final Resul t [facility] [address] [place] [address], [place] [phone] * (ABNORMAL) Culture urine (06/20/2025 6:15 AM EDT) Only the most recent of3 resultswithin the time period is included. Culture, Urine 10,000-49,000 CFU/mL Klebsiella pneumoniae ssp pneumoniae(A) SILVIA 06/22/2025 8:39 AM EDT [facility] Comment: This is an edited result. Previous organism was Gram negative bacilli on 06/21/2025 at 0850 EDT. Urine Urine specimen obtained by clean catch procedure / Unknown 06/20/2025 6:15 AM EDT 06/20/2025 10:13 AM EDT Narrative Organism Antibiotic Method Susceptibility Klebsiella pneumoniae ssp pneumoniae Amoxicillin/Clavulanate SILVIA 8 ug/ml: Susceptible Klebsiella pneumoniae ssp pneumoniae Ampicillin/Sulbactam SILVIA 16 ug/ml: Intermediate Klebsiella pneumoniae ssp pneumoniae Piperacillin/Tazobactam SILVIA <=4 [...] Susceptible Klebsiella pneumoniae ssp pneumoniae Nitrofurantoin SILVIA 64 ug/ml: Intermediate Klebsiella pneumoniae ssp pneumoniae Trimethoprim/Sulfamethoxazo le SILVIA >=320 ug/ml: Resistant us Conrado Melendez MD LAB MICROBIOLOGY - GENERAL ORDER CHAVO Final Result [facility] [address] [place] [address], * (ABNORMAL) Complete blood count (06/13/2025 7:12 AM EDT) WBC 6.7 4.8 - 10.8 K/mcL LAB HEMETOLOGY METHOD 06/13/2025 9:56 AM EDT [facility] RBC 4.00 3.80 - 4.80 M/mcL LAB HEMETOLOGY METHOD 06/13/2025 9:56 AM EDT [facility] Hemoglobin 11.2(L) 11.5 - 16.0 g/dL LAB HEMETOLOGY METHOD 06/13/2025 9:56 AM EDT [facility] Hematocrit 37.3 35.0 - 47.0 % LAB HEMETOLOGY METHOD 06/13/2025 9:56 AM EDT [facility] MCV 93.5 79.0 - 98.0 FL LAB HEMETOLOGY METHOD 06/13/2025 9:56 AM EDT [facility] MCH 28.1 27.0 - 32.0 pcg LAB HEMETOLOGY METHOD [facility] MCHC 30.0(L) 32.0 - 37.0 g/dL LAB HEMETOLOGY METHOD 06/13/2025 9:56 AM EDT [facility] RDW 14.6 11.0 - 15.0 % LAB HEMETOLOGY METHOD 06/13/2025 9:56 AM EDT [facility] Platelets 219 130 - 400 K/mcL LAB HEMETOLOGY METHOD 06/13/2025 9:56 AM EDT [facility] MPV 10.5 7.0 - 11.0 FL LAB HEMETOLOGY METHOD 06/13/2025 9:56 AM EDT [facility] NRBC 0.0 <1.0 % LAB HEMETOLOGY METHOD 06/13/2025 9:56 AM EDT [facility] NRBC Absolute 0.00 <0.10 K/mcL LAB HEMETOLOGY METHOD 06/13/2025 9:56 AM EDT [facility] Blood Venous blood specimen / Unknown Venipuncture / Unknown 06/13/2025 7:12 AM EDT 06/13/2025 9:37 AM EDT us Conrado Melendez MD LAB BLOOD ORDERABLES Final Resul t [facility] [address] [place] [address], [place] [phone] * (ABNORMAL) Basic metabolic panel (06/13/2025 7:12 AM EDT) Only the most recent of2 resultswithin the time period is included. Sodium 141 133 - 145 mmol/L LAB CHEMISTRY METHOD 06/13/2025 1:00 PM EDT [facility] Potassium 4.4 3.5 - 5.5 mmol/L LAB CHEMISTRY METHOD 06/13/2025 1:00 PM [facility] Chloride 101 96 - 110 mmol/L LAB CHEMISTRY METHOD 06/13/2025 1:00 PM [facility] CO2 35(H) 21 - 32 mmol/L LAB CHEMISTRY METHOD 06/13/2025 1:00 PM EDT [facility] Anion Gap 5 3 - 11 LAB CHEMISTRY METHOD 06/13/2025 1:00 PM EDT [facility] Glucose 81 70 - 100 mg/dL LAB CHEMISTRY METHOD [facility] BUN 24 5 - 25 mg/dL LAB CHEMISTRY METHOD 06/13/2025 1:[facility] Creatinine 1.00 0.50 - 1.10 mg/dL LAB CHEMISTRY METHOD 06/13/2025 1:00 PM [facility] eGFR 60 >=60 mL/min/1. 73m2 LAB CHEMISTRY METHOD 06/13/2025 1:00 PM [facility] Comment:Calculation based on the Chronic Kidney Disease Epidemiology Collaboration (CKD-EPI) equation refit without adjustment for race. BUN/Creatinine Ratio 24.0 LAB CHEMISTRY METHOD 06/13/2025 1:00 PM [facility] Calcium 9.1 8.5 - 10.5 mg/dL LAB CHEMISTRY METHOD 06/13/2025 1:00 PM [facility] Blood Venous blood specimen / Unknown Venipuncture / Unknown 06/13/2025 7:12 AM EDT 06/13/2025 9:37 AM EDT Conrado Melendez MD LAB BLOOD ORDERABLES Final Resul t [facility] [address] [place] [address], * External Xray Report (06/09/2025) Anatomical Region Laterality Modality Radiographic Yola ging us Provider [facility] IMG XR PROCEDURES Final Result * (ABNORMAL) CBC auto differential (05/22/2025 9:13 AM EDT) Only the most recent of2 resultswithin the time period is included. [facility] WBC 5.4 4.8 - 10.8 K/mcL LAB HEMETOLOGY METHOD 05/22/2025 11:49 AM [facility] RBC 4.20 3.80 - 4.80 M/mcL LAB HEMETOLOGY METHOD 05/22/2025 11:49 AM [facility] Hemoglobin 11.5 11.5 - 16.0 g/dL LAB HEMETOLOGY METHOD 05/22/2025 11:49 AM [facility] Hematocrit 38.6 35.0 - 47.0 % LAB HEMETOLOGY METHOD 05/22/2025 11:49 AM [facility] MCV 92.1 79.0 - 98.0 FL LAB HEMETOLOGY METHOD 05/22/2025 11:49 AM [facility] MCH 27.4 27.0 - 32.0 pcg LAB HEMETOLOGY METHOD 05/22/2025 11:49 AM [facility] MCHC 29.8(L) 32.0 - 37.0 g/dL LAB HEMETOLOGY METHOD 05/22/2025 11:49 AM [facility] RDW 14.6 11.0 - 15.0 % LAB HEMETOLOGY METHOD 05/22/2025 11:49 AM [facility] Platelets 241 130 - 400 K/mcL LAB HEMETOLOGY METHOD 05/22/2025 11:49 AM [facility] MPV 10.3 7.0 - 11.0 FL LAB HEMETOLOGY METHOD 05/22/2025 11:49 AM [facility] NRBC 0.0 <1.0 % LAB HEMETOLOGY METHOD 05/22/2025 11:49 AM [facility] NRBC Absolute 0.00 <0.10 K/mcL LAB HEMETOLOGY METHOD 05/22/2025 11:49 AM [facility] Neutrophils Relative 68.5 % LAB HEMETOLOGY METHOD 05/22/2025 11:49 AM [facility] Lymphocytes Relative 18.6 % LAB HEMETOLOGY METHOD 05/22/2025 11:49 AM [facility] Monocytes Relative 10.8 % LAB HEMETOLOGY METHOD 05/22/2025 11:49 AM [facility] Eosinophils Relative 1.3 % LAB HEMETOLOGY METHOD 05/22/2025 11:49 AM [facility] Basophils Relative 0.2 % LAB HEMETOLOGY METHOD 05/22/2025 11:49 AM [facility] Immature Granulocytes Relative 0.6 % LAB HEMETOLOGY METHOD 05/22/2025 11:49 AM [facility] Neutrophils Absolute 3.70 1.50 - 7.00 K/mcL LAB HEMETOLOGY METHOD 05/22/2025 11:49 AM [facility] Lymphocytes Absolute 1.00 1.00 - 5.00 K/mcL LAB HEMETOLOGY METHOD 05/22/2025 11:49 AM [facility] Monocytes Absolute 0.58 0.20 - 1.00 K/mcL LAB HEMETOLOGY METHOD 05/22/2025 11:49 AM [facility] Eosinophils Absolute 0.07 0.00 - 0.50 K/mcL LAB HEMETOLOGY METHOD 05/22/2025 11:49 AM [facility] Basophils Absolute 0.01 0.00 - 0.20 K/mcL LAB HEMETOLOGY METHOD 05/22/2025 11:49 AM [facility] Immature Granulocytes Absolute 0.03 0.00 - 0.03 K/mcL LAB HEMETOLOGY METHOD 05/22/2025 11:49 AM [facility] Blood Venous blood specimen / Unknown Venipuncture / Unknown 05/22/2025 9:13 AM EDT 05/22/2025 9:59 AM EDT us Conrado Melendez MD LAB BLOOD ORDERABLES Final Resul t [facility] [address] [place] [address], [place] [phone] * (ABNORMAL) Urinalysis with reflex microscopic (05/06/2025 2:00 AM EDT) Specific Fults Urine 1.020 1.003 - 1.030 LAB URINALYSIS - AUTOMATED METHOD 05/06/2025 8:57 AM [facility] pH, Urine 5.5 5.0 - 8.0 pH LAB URINALYSIS - AUTOMATED METHOD 05/06/2025 8:57 AM [facility] Leukocytes, Urine Negative Negative LAB URINALYSIS - AUTOMATED METHOD 05/06/2025 8:57 AM [facility] Nitrite, Urine Negative Negative LAB URINALYSIS - AUTOMATED METHOD 05/06/2025 8:57 AM [facility] Protein, Urine Negative <=Trace mg/dL LAB URINALYSIS - AUTOMATED METHOD 05/06/2025 8:57 AM [facility] Glucose, Urine >=1000(A) Negative mg/dL LAB URINALYSIS - AUTOMATED METHOD 05/06/2025 8:57 AM [facility] Ketones, Urine Negative Negative mg/dL LAB URINALYSIS - AUTOMATED METHOD 05/06/2025 8:57 AM [facility] Urobilinogen , Urine 1.0 0.2 - 1.0 mg/dL LAB URINALYSIS - AUTOMATED METHOD 05/06/2025 8:57 AM [facility] Bilirubin, Urine Negative Negative LAB URINALYSIS - AUTOMATED METHOD 05/06/2025 8:57 AM [facility] Blood, Urine Negative Negative LAB URINALYSIS - AUTOMATED METHOD 05/06/2025 8:57 AM EDT [facility] Urine Urine specimen obtained by clean catch procedure / Unknown 05/06/2025 2:00 AM EDT 05/06/2025 8:45 AM EDT Conrado Melendez MD LAB URINE ORDERABLES Final Resul t Performing Organization Address City/[facility]/ZIP Co de Phone Number [facility] [address] [place] [address], [place] [phone] * Hemoglobin A1c (04/08/2025 8:20 AM EDT) Hemoglobin A1C 5.4 <6.5 % LAB CHEMISTRY METHOD 04/08/2025 1:31 PM EDT [facility] Mean Bld Glu Estim. 108 mg/dL LAB CHEMISTRY METHOD 04/08/2025 1:31 PM EDT [facility] Blood Venous blood specimen / Unknown Venipuncture / Unknown 04/08/2025 8:20 AM EDT 04/08/2025 10:48 AM EDT Conrado Melendez MD LAB BLOOD ORDERABLES Final Resul t Performing Organization Address [facility]/ZIP Co de Phone Number [facility] [address] [place] [address], [place] [phone] from Last 3 Months or Most Recently Relevant to Health Maintenance Insurance [facility] Member Subscriber Plan / Payer (Ef fective 2018-Present) Name:Alyson Caicedo Relation to Subscriber:Self Name:Alyson Caicedo Payer ID:[id number] Group ID:[id number] Type:Not on file Address: [address] [place] [id number] Advance Directives Documents on File Type Date Recorded Patient Jira Administrator Expl anation Health Care Decision (hx) 05/09/2020 AD SCOTT DIRECTIVE Health Care Decision (hx) 05/09/2020 AD SCOTT DIRECTIVE Health Care Decision (hx) 05/09/2020 AD SCOTT DIRECTIVE Health Care Decision (hx) 05/09/2020 AD SCOTT DIRECTIVE Health Care Decision (hx) 05/09/2020 AD SCOTT DIRECTIVE Health Care Decision (hx) 05/09/2020 AD SCOTT DIRECTIVE Health Care Decision (hx) 05/09/2020 AD SCOTT DIRECTIVE Health Care Decision (hx) 05/09/2020 AD SCOTT DIRECTIVE Health Care Decision (hx) 05/09/2020 AD SCOTT DIRECTIVE Health Care Decision (hx) 05/09/2020 AD SCOTT DIRECTIVE Care Teams Orthopedic Assistant Relationship Specialty Start Date End Date Conrado Melendez MD [address] [place] [address], [phone] PCP - General Family Medicine 05/27/25
--- OUTSIDE RECORDS SUMMARY | 2025-07-10 14:10 | XMS_ITS | Clinical Summary ---
Author Organization [facility] Address [address] [place] [address] Care Team Providers Care Dance Costume Designer Name Role Phone Haritha Lopez MD Primary Care Provider [phone] Social History Tobacco Use Types Packs/Day Years Used Date Smoking Tobacco: Never Assessed Sex and Gender Information Value Date Recorded Sex Assigned at Not on file Gender Identity Not on file Sexual Orientation Not on file Plan of Treatment Health Maintenance Due Date Last Done Comments Hepatitis C Screening 1950 COVID-19 Vaccine (#1) 05/07/1952 Depression Screening 1963 Preventative Health Evaluation 1969 DTap / Tdap / Td (1 - Tdap) 1970 Colon Cancer Screening (Colonoscopy) 1996 Breast Cancer Screening (Mammogram) 2001 Shingrix-Zoster Vaccine (1 of 2) 2001 Fall Risk Assessment 2016 Osteoporosis Screening (DEXA Scan) 2016 Pneumococcal Vaccine (1 of 1 - PCV) 2016 Influenza Vaccine (#1) 2025 RSV Adult > 60+ Yrs or Pregn ant (1 - 1-dose 75+ series) 2026 Hepatitis B Vaccines Aged Out No long er eligible based on patient's age to complete this topic RSV Ped < 20 months Aged Out No longe r eligible based on patient's age to complete this topic Care Teams Dance Costume Designer Relationship Specialty Start Date End Date Haritha Lopez MD [address] [place] [address] PCP - General Internal Medicine 09/04/19
--- OUTSIDE RECORDS SUMMARY | 2025-07-10 14:11 | XMS_ITS | Patient Health Record ---
Author Organization [facility] [address] [address] Address [address] [place] [address] Care Team Providers Care Occupational Therapist Rehab Manager Name Role Phone KATIE LOPEZ Primary Care Provider NICHELLEJIMMIE MONTENEGRO Unavailable [phone] ROBIN MUELLERYN Unavailable [phone] Allergies Allergen (clinical drug ingredient) Drug/Non Drug Allergy documented on EMR Reaction Allergy Type Onset Date Status aspirin Aspirin Unknown Drug Allergy Active codeine Codeine Sulfate Unknown Drug Allergy A ctive ibuprofen Ibuprofen Unknown Drug Allergy Active Results Component Value Reference Range Notes HIGH SENSITIVITY TROPONIN I Reviewed date:07/25/2024 08:16:35 AM Interpretation: Performing Lab: Notes/Report: Note Original Ordering Provider: [facility], a member of [address] [address] Peripatologist - Marilee Lisa MD HIGH SENSITIVITY TROPONIN I 6 <54 pg/mL High levels of biotin in samples may falsely decrease hsTroponin values. Use caution when interpreting hsTroponin results in patients taking biotin who exhibit renal impairment (eGFR <60) or in patients taking more than 20 mg/day of biotin. Note Original Ordering Provider: JANE [facility], a member of [address] [address] Peripatologist - Marilee Lisa MD HIGH SENSITIVITY TROPONIN I Reviewed date:07/25/2024 08:16:35 AM Interpretation: Performing Lab: Notes/Report: Note Original Ordering Provider: [facility], a member of [address] [address] Peripatologist - Marilee Lisa MD HIGH SENSITIVITY TROPONIN I 6 <54 pg/mL High levels of biotin in samples may falsely decrease hsTroponin values. Use caution when interpreting hsTroponin results in patients taking biotin who exhibit renal impairment (eGFR <60) or in patients taking more than 20 mg/day of biotin. Note Original Ordering Provider: JNAE [facility], a member of [address] [address] Peripatologist - Marilee Lisa MD LDL CHOLESTEROL, DIRECT Reviewed date:07/25/2024 08:16:35 AM Interpretation: Performing Lab: Notes/Report: LDL CHOLESTEROL, DIRECT 38 0-100 mg/dL PARTIAL THROMBOPLASTIN TIME Reviewed date:07/25/2024 09:41:46 AM Interpretation: Performing Lab: Notes/Report: PARTIAL THROMBOPLASTIN TIME 42.3 24.1-39.3 sec Note [facility], a member of [address] [address] Peripatologist - Marilee Lisa MD B-TYPE NATRIURETIC PEPTIDE Reviewed date:07/25/2024 08:16:35 AM Interpretation: Performing Lab: Notes/Report: Note Original Ordering Provider: [facility], a member of [address] [address] Peripatologist - Marilee Lisa MD B-TYPE NATRIURETIC PEPTIDE 38 <100 pg/mL Note Original Ordering Provider: [facility] Danny [facility], a member of [address] [address] Peripatologist - Marilee Lisa MD MAGNESIUM Reviewed date:07/25/2024 08:16:35 AM Interpretation: Performing Lab: Notes/Report: MAGNESIUM 2.1 1.9-2.6 mg/dL LIPASE Reviewed date:07/25/2024 08:16:35 AM Interpretation: Performing Lab: Notes/Report: [facility], a member of [address] [address] Peripatologist - Marilee Lisa MD LIPASE 19 13-75 U/L PT/INR Reviewed date:07/25/2024 08:16:35 AM Interpretation: Performing Lab: Notes/Report: Original Ordering Provider: [facility] PROTHROMBIN TIME 12.1 10.6-13.9 SEC INR 0.97 CBC WITH AUTO DIFF Reviewed date:07/25/2024 09:41:51 AM Interpretation: Performing Lab: Notes/Report: Original Ordering Provider: [facility], [place] [address] Peripatologist - Marilee Lisa MD WBC 13.0 4.8-10.8 x10-3/uL RBC 4.2 3.8-4.8 x10-6/uL HEMOGLOBIN 12.2 11.5-16.0 g/dL HEMATOCRIT 40.4 35-47 % MCV 96.2 79-98 fL MCH 29.0 27-32 pg MCHC 30.2 32-37 g/dL RDW 13.6 11-15 % PLT COUNT 274 130-400 x10-3/uL MEAN PLATELET VOLUME 10.4 7-11 fL NRBC % AUTO 0.0 <1 % NEUT % 78.7 LYMPH % 10.6 MONO % 9.3 EOS % 0.9 BASO % 0.2 IMMATURE GRANULOCYTES % 0.3 NRBC # AUTO 0.00 <0.1 x10-3/uL ABSOLUTE NEUT 10.20 1.5-7.0 x10-3/uL LYMPH # 1.38 1-5.0 x10-3/uL MONO # 1.21 0.2-1.0 x10-3/uL EOS # 0.12 0-0.5 x10-3/uL BASO # 0.03 0-0.2 x10-3/uL IMMATURE GRANULOCYTES # 0.04 0-0.03 x10-3/uL COMPREHENSIVE METABOLIC PANE L Reviewed date:07/25/2024 09:41:55 AM Interpretation: Performing Lab: Notes/Report: Note Original Orderi ng Provider: DOC ER GLUCOSE 118 70-100 mg/dL Reference range applicable to fasting specimens only BUN 22 5-25 mg/dL CREAT 0.94 0.5-1.1 mg/dL GLOMERULAR FILTRATION RATE 64 >60 This eGFR result was calculated using the CKD-EPI 2020 Creatinine Equation SODIUM 138 135-145 mEq/L POTASSIUM 4.2 3.5-5.5 mmol/L CHLORIDE 99 96-110 mmol/L CO2 37 21-32 mmol/L ANION GAP 2 3-11 CALCIUM 9.2 8.5-10.5 mg/dL TOTAL PROTEIN 7.3 6.0-8.0 G/dL ALBUMIN 3.5 3.2-5.0 G/dL BILI,TOTAL 0.3 0.0-1.4 mg/dL SGOT 17 10-42 U/L SGPT 19 10-60 U/L ALK PHOS 125 42-121 U/L CULTURE URINE Reviewed date:05/07/2025 08:56:14 AM Interpretation: Performing Lab: Notes/Report: Culture, Urine 50,000-99,000 CFU/mL Mixed urogenital nohemi, no uropathogens present. Suggest repeat specimen if clinically indicated. VITAMIN B12 Reviewed date:02/26/2025 11:13:44 AM Interpretation: Performing Lab: Notes/Report: Vitamin B-12 488 250-900 pcg/mL COMPLETE BLOOD COUNT Reviewed date:04/03/2025 01:27:28 PM Interpretation: Performing Lab: Notes/Report: WBC 7.3 4.8-10.8 K/mcL RBC 4.20 3.80-4.80 M/mcL Hemoglobin 11.9 11.5-16.0 g/dL Hematocrit 39.6 35.0-47.0 % MCV 93.4 79.0-98.0 FL MCH 28.1 27.0-32.0 pcg MCHC 30.1 32.0-37.0 g/dL RDW 13.7 11.0-15.0 % Platelets 255 130-400 K/mcL MPV 11.0 7.0-11.0 FL NRBC 0.0 <1.0 % NRBC Absolute 0.00 <0.10 K/mcL COMPLETE BLOOD COUNT Reviewed date:03/19/2025 02:16:02 PM Interpretation: Performing Lab: Notes/Report: WBC 7.8 4.8-10.8 K/mcL RBC 4.60 3.80-4.80 M/mcL Hemoglobin 13.2 11.5-16.0 g/dL Hematocrit 43.3 35.0-47.0 % MCV 93.9 79.0-98.0 FL MCH 28.6 27.0-32.0 pcg MCHC 30.5 32.0-37.0 g/dL RDW 14.0 11.0-15.0 % Platelets 290 130-400 K/mcL MPV 10.7 7.0-11.0 FL NRBC 0.0 <1.0 % NRBC Absolute 0.00 <0.10 K/mcL COMPLETE BLOOD COUNT Reviewed date:03/07/2025 10:49:06 AM Interpretation: Performing Lab: Notes/Report: WBC 8.1 4.8-10.8 K/mcL RBC 4.50 3.80-4.80 M/mcL Hemoglobin 12.9 11.5-16.0 g/dL Hematocrit 43.1 35.0-47.0 % MCV 96.2 79.0-98.0 FL MCH 28.8 27.0-32.0 pcg MCHC 29.9 32.0-37.0 g/dL RDW 14.1 11.0-15.0 % Platelets 224 130-400 K/mcL MPV 11.0 7.0-11.0 FL NRBC 0.0 <1.0 % NRBC Absolute 0.00 <0.10 K/mcL COMPLETE BLOOD COUNT Reviewed date:02/26/2025 11:13:38 AM Interpretation: Performing Lab: Notes/Report: WBC 6.8 4.8-10.8 K/mcL RBC 4.50 3.80-4.80 M/mcL Hemoglobin 12.9 11.5-16.0 g/dL Hematocrit 43.2 35.0-47.0 % MCV 95.8 79.0-98.0 FL MCH 28.6 27.0-32.0 pcg MCHC 29.9 32.0-37.0 g/dL RDW 14.1 11.0-15.0 % Platelets 259 130-400 K/mcL MPV 11.0 7.0-11.0 FL NRBC 0.0 <1.0 % NRBC Absolute 0.00 <0.10 K/mcL COMPLETE BLOOD COUNT Reviewed date:02/11/2025 08:58:28 AM Interpretation: Performing Lab: Notes/Report: WBC 7.9 4.8-10.8 K/mcL RBC 4.20 3.80-4.80 M/mcL Hemoglobin 12.0 11.5-16.0 g/dL Hematocrit 40.4 35.0-47.0 % MCV 96.7 79.0-98.0 FL MCH 28.7 27.0-32.0 pcg MCHC 29.7 32.0-37.0 g/dL RDW 14.6 11.0-15.0 % Platelets 254 130-400 K/mcL MPV 10.7 7.0-11.0 FL NRBC 0.0 <1.0 % NRBC Absolute 0.00 <0.10 K/mcL COMPLETE BLOOD COUNT Reviewed date:02/18/2025 08:54:17 AM Interpretation: Performing Lab: Notes/Report: WBC 6.7 4.8-10.8 K/mcL RBC 4.20 3.80-4.80 M/mcL Hemoglobin 12.2 11.5-16.0 g/dL Hematocrit 40.2 35.0-47.0 % MCV 94.8 79.0-98.0 FL MCH 28.8 27.0-32.0 pcg MCHC 30.3 32.0-37.0 g/dL RDW 14.5 11.0-15.0 % Platelets 244 130-400 K/mcL MPV 11.0 7.0-11.0 FL NRBC 0.0 <1.0 % NRBC Absolute 0.00 <0.10 K/mcL MAGNESIUM Reviewed date:10/29/2024 08:20:38 AM Interpretation: Performing Lab: Notes/Report: Magnesium 2.4 1.9-2.6 mg/dL VITAMIN D 25 HYDROXY Reviewed date:02/26/2025 10:02:22 AM Interpretation: Performing Lab: Notes/Report: Vit D, 25-Hydroxy 42.7 30.0-80.0 ng/mL CBC WITH AUTO DIFFERENTIAL Reviewed date:05/28/2025 09:00:13 AM Interpretation: Performing Lab: Notes/Report: WBC 5.4 4.8-10.8 K/mcL RBC 4.20 3.80-4.80 M/mcL Hemoglobin 11.5 11.5-16.0 g/dL Hematocrit 38.6 35.0-47.0 % MCV 92.1 79.0-98.0 FL MCH 27.4 27.0-32.0 pcg MCHC 29.8 32.0-37.0 g/dL RDW 14.6 11.0-15.0 % Platelets 241 130-400 K/mcL MPV 10.3 7.0-11.0 FL NRBC 0.0 <1.0 % NRBC Absolute 0.00 <0.10 K/mcL Neutrophils Relative 68.5 Lymphocytes Relative 18.6 Monocytes Relative 10.8 Eosinophils Relative 1.3 Basophils Relative 0.2 Immature Granulocytes Relative 0.6 Neutrophils Absolute 3.70 1.50-7.00 K/mcL Lymphocytes Absolute 1.00 1.00-5.00 K/mcL Monocytes Absolute 0.58 0.20-1.00 K/mcL Eosinophils Absolute 0.07 0.00-0.50 K/mcL Basophils Absolute 0.01 0.00-0.20 K/mcL Immature Granulocytes Absolute 0.03 0.00-0.03 K/mcL BASIC METABOLIC PANEL Reviewed date:03/19/2025 02:15:54 PM Interpretation: Performing Lab: Notes/Report: Sodium 136 133-145 mmol/L Potassium 4.0 3.5-5.5 mmol/L Chloride 98 96-110 mmol/L CO2 31 21-32 mmol/L Anion Gap 7 3-11 Glucose 155 70-100 mg/dL BUN 23 5-25 mg/dL Creatinine 1.06 0.50-1.10 mg/dL eGFR 56 >=60 mL/min/1.73m2 Calculati on based on the Chronic Kidney Disease Epidemiology Collaboration (CKD-EPI) equation refit without adjustment for race. BUN/Creatinine Ratio 21.7 Calcium 9.5 8.5-10.5 mg/dL BASIC METABOLIC PANEL Reviewed date:03/07/2025 10:49:02 AM Interpretation: Performing Lab: Notes/Report: Sodium 144 133-145 mmol/L Potassium 3.6 3.5-5.5 mmol/L Chloride 103 96-110 mmol/L CO2 33 21-32 mmol/L Anion Gap 8 3-11 Glucose 148 70-100 mg/dL BUN 16 5-25 mg/dL Creatinine 0.75 0.50-1.10 mg/dL eGFR 84 >=60 mL/min/1.73m2 Calculati on based on the Chronic Kidney Disease Epidemiology Collaboration (CKD-EPI) equation refit without adjustment for race. BUN/Creatinine Ratio 21.3 Calcium 9.1 8.5-10.5 mg/dL BASIC METABOLIC PANEL Reviewed date:03/12/2025 08:42:59 AM Interpretation: Performing Lab: Notes/Report: Sodium 138 133-145 mmol/L Potassium 3.7 3.5-5.5 mmol/L Chloride 99 96-110 mmol/L CO2 33 21-32 mmol/L Anion Gap 6 3-11 Glucose 127 70-100 mg/dL BUN 20 5-25 mg/dL Creatinine 0.99 0.50-1.10 mg/dL eGFR 60 >=60 mL/min/1.73m2 Calculati on based on the?Chronic Kidney Disease Epidemiology Collaboration (CKD-EPI) equation refit?without adjustment for race. BUN/Creatinine Ratio 20.2 Calcium 8.9 8.5-10.5 mg/dL BASIC METABOLIC PANEL Reviewed date:02/19/2025 02:00:16 PM Interpretation: Performing Lab: Notes/Report: Sodium 138 133-145 mmol/L Potassium 4.2 3.5-5.5 mmol/L Chloride 98 96-110 mmol/L CO2 37 21-32 mmol/L Anion Gap 3 3-11 Glucose 88 70-100 mg/dL BUN 25 5-25 mg/dL Creatinine 1.08 0.50-1.10 mg/dL eGFR 54 >=60 mL/min/1.73m2 Calculati on based on the?Chronic Kidney Disease Epidemiology Collaboration (CKD-EPI) equation refit?without adjustment for race. BUN/Creatinine Ratio 23.1 Calcium 9.1 8.5-10.5 mg/dL BASIC METABOLIC PANEL Reviewed date:04/03/2025 01:27:23 PM Interpretation: Performing Lab: Notes/Report: Sodium 138 133-145 mmol/L Potassium 3.4 3.5-5.5 mmol/L Chloride 101 96-110 mmol/L CO2 31 21-32 mmol/L Anion Gap 6 3-11 Glucose 134 70-100 mg/dL BUN 19 5-25 mg/dL Creatinine 1.03 0.50-1.10 mg/dL eGFR 58 >=60 mL/min/1.73m2 Calculati on based on the Chronic Kidney Disease Epidemiology Collaboration (CKD-EPI) equation refit without adjustment for race. BUN/Creatinine Ratio 18.4 Calcium 8.9 8.5-10.5 mg/dL BASIC METABOLIC PANEL Reviewed date:02/18/2025 08:54:17 AM Interpretation: Performing Lab: Notes/Report: Sodium 139 133-145 mmol/L Potassium 3.9 3.5-5.5 mmol/L Chloride 100 96-110 mmol/L CO2 34 21-32 mmol/L Anion Gap 5 3-11 Glucose 96 70-100 mg/dL BUN 20 5-25 mg/dL Creatinine 0.86 0.50-1.10 mg/dL eGFR 71 >=60 mL/min/1.73m2 Calculati on based on the Chronic Kidney Disease Epidemiology Collaboration (CKD-EPI) equation refit without adjustment for race. BUN/Creatinine Ratio 23.3 Calcium 8.9 8.5-10.5 mg/dL BASIC METABOLIC PANEL Reviewed date:02/11/2025 09:05:13 AM Interpretation: Performing Lab: Notes/Report: Sodium 136 133-145 mmol/L Potassium 3.3 3.5-5.5 mmol/L Chloride 90 96-110 mmol/L CO2 37 21-32 mmol/L Anion Gap 9 3-11 Glucose 93 70-100 mg/dL BUN 27 5-25 mg/dL Creatinine 1.03 0.50-1.10 mg/dL eGFR 58 >=60 mL/min/1.73m2 Calculati on based on the Chronic Kidney Disease Epidemiology Collaboration (CKD-EPI) equation refit without adjustment for race. BUN/Creatinine Ratio 26.2 Calcium 9.1 8.5-10.5 mg/dL BASIC METABOLIC PANEL Reviewed date:10/29/2024 08:34:21 AM Interpretation: Performing Lab: Notes/Report: Sodium 143 133-145 mmol/L Potassium 3.5 3.5-5.5 mmol/L Chloride 101 96-110 mmol/L CO2 36 21-32 mmol/L Anion Gap 6 3-11 Glucose 154 70-100 mg/dL BUN 27 5-25 mg/dL Creatinine 1.13 0.50-1.10 mg/dL eGFR 52 >=60 mL/min/1.73m2 Calculati on based on the?Chronic Kidney Disease Epidemiology Collaboration (CKD-EPI) equation refit?without adjustment for race. BUN/Creatinine Ratio 23.9 Calcium 9.1 8.5-10.5 mg/dL BASIC METABOLIC PANEL Reviewed date:10/21/2024 09:47:49 AM Interpretation: Performing Lab: Notes/Report: Sodium 140 133-145 mmol/L Potassium 3.0 3.5-5.5 mmol/L Chloride 96 96-110 mmol/L CO2 35 21-32 mmol/L Anion Gap 9 3-11 Glucose 141 70-100 mg/dL BUN 29 5-25 mg/dL Creatinine 1.08 0.50-1.10 mg/dL eGFR 55 >=60 mL/min/1.73m2 Calculati on based on the?Chronic Kidney Disease Epidemiology Collaboration (CKD-EPI) equation refit?without adjustment for race. BUN/Creatinine Ratio 26.9 Calcium 9.5 8.5-10.5 mg/dL EKG (Not yet reviewed by pro vider) Interpretation: Performing Lab: Notes/Report: ECGDiastolicBP 60 ECGHr 73 ECGPRInterval 207 ECGPWaveAxis 49 ECGQRSDuration 105 ECGQrsWaveAxis -7 ECGQTcInterval 424 ECGQTInterval 402 ECGSystolicBP 114 ECGTWaveAxis 29 RR_DiastolicBP 0 RR_MaxRRInterval 0 RR_MeanHR 0 RR_MeanRRInterval 0 RR_MinRRInterval 0 RR_NumBeats 0 RR_NumNormalBeats 0 RR_SystolicBP 0 URINALYSIS WITH REFLEX MICRO SCOPIC Reviewed date:05/06/2025 04:00:01 PM Interpretation: Performing Lab: Notes/Report: Specific [place] Urine 1.020 1.003-1.030 pH, Urine 5.5 5.0-8.0 pH Leukocytes, Urine Negative Negative Nitrite, Urine Negative Negative Protein, Urine Negative <=Trace mg/dL Glucose, Urine >=1000 Negative mg/dL Ketones, Urine Negative Negative mg/dL Urobilinogen, Urine 1.0 0.2-1.0 mg/dL Bilirubin, Urine Negative Negative Blood, Urine Negative Negative HEMOGLOBIN A1C Reviewed date:04/09/2025 11:55:37 AM Interpretation: Performing Lab: Notes/Report: Hemoglobin A1C 5.4 <6.5 % Mean Bld Glu Estim. 108 URINALYSIS WITH REFLEX MICRO SCOPIC AND CULTURE Reviewed date:04/15/2025 09:45:36 AM Interpretation: Performing Lab: Notes/Report: Specific [place] Urine 1.010 1.003-1.030 pH, Urine 5.5 5.0-8.0 pH Leukocytes, Urine Large Negative Nitrite, Urine Negative Negative Protein, Urine Negative <=Trace mg/dL Glucose, Urine 250 Negative mg/dL Ketones, Urine Negative Negative mg/dL Urobilinogen, Urine 0.2 0.2-1.0 mg/dL Bilirubin, Urine Negative Negative Blood, Urine Negative Negative RBC, Urine 2.0 0-4 /HPF WBC, Urine 93.6 0-4 /HPF Squamous Epithelial, Urine 8 0-60 /LPF Bacteria, Urine Many Negative /HPF Hyaline Casts, Urine 2.8 0-3 /LPF COMPLETE BLOOD COUNT Reviewed date:03/28/2025 10:29:03 AM Interpretation: Performing Lab: Notes/Report: WBC 6.4 4.8-10.8 K/mcL RBC 4.10 3.80-4.80 M/mcL Hemoglobin 11.8 11.5-16.0 g/dL Hematocrit 38.0 35.0-47.0 % MCV 93.1 79.0-98.0 FL MCH 28.9 27.0-32.0 pcg MCHC 31.1 32.0-37.0 g/dL RDW 14.0 11.0-15.0 % Platelets 243 130-400 K/mcL MPV 10.8 7.0-11.0 FL NRBC 0.0 <1.0 % NRBC Absolute 0.00 <0.10 K/mcL COMPLETE BLOOD COUNT Reviewed date:03/10/2025 01:18:30 PM Interpretation: Performing Lab: Notes/Report: WBC 6.5 4.8-10.8 K/mcL RBC 4.50 3.80-4.80 M/mcL Hemoglobin 12.6 11.5-16.0 g/dL Hematocrit 42.6 35.0-47.0 % MCV 94.2 79.0-98.0 FL MCH 27.9 27.0-32.0 pcg MCHC 29.6 32.0-37.0 g/dL RDW 13.7 11.0-15.0 % Platelets 263 130-400 K/mcL MPV 10.7 7.0-11.0 FL NRBC 0.0 <1.0 % NRBC Absolute 0.00 <0.10 K/mcL COMPLETE BLOOD COUNT Reviewed date:01/29/2025 01:47:25 PM Interpretation: Performing Lab: Notes/Report: WBC 7.2 4.8-10.8 K/mcL RBC 4.50 3.80-4.80 M/mcL Hemoglobin 13.2 11.5-16.0 g/dL Hematocrit 43.5 35.0-47.0 % MCV 96.2 79.0-98.0 FL MCH 29.2 27.0-32.0 pcg MCHC 30.3 32.0-37.0 g/dL RDW 14.8 11.0-15.0 % Platelets 243 130-400 K/mcL MPV 11.2 7.0-11.0 FL NRBC 0.0 <1.0 % NRBC Absolute 0.00 <0.10 K/mcL COMPLETE BLOOD COUNT Reviewed date:02/05/2025 09:21:40 AM Interpretation: Performing Lab: Notes/Report: WBC 7.2 4.8-10.8 K/mcL RBC 4.20 3.80-4.80 M/mcL Hemoglobin 12.2 11.5-16.0 g/dL Hematocrit 39.5 35.0-47.0 % MCV 95.0 79.0-98.0 FL MCH 29.3 27.0-32.0 pcg MCHC 30.9 32.0-37.0 g/dL RDW 14.6 11.0-15.0 % Platelets 270 130-400 K/mcL MPV 11.0 7.0-11.0 FL NRBC 0.0 <1.0 % NRBC Absolute 0.00 <0.10 K/mcL CBC WITH AUTO DIFFERENTIAL Reviewed date:04/15/2025 09:41:31 AM Interpretation: Performing Lab: Notes/Report: WBC 7.3 4.8-10.8 K/mcL RBC 4.40 3.80-4.80 M/mcL Hemoglobin 12.3 11.5-16.0 g/dL Hematocrit 40.6 35.0-47.0 % MCV 92.9 79.0-98.0 FL MCH 28.1 27.0-32.0 pcg MCHC 30.3 32.0-37.0 g/dL RDW 13.5 11.0-15.0 % Platelets 276 130-400 K/mcL MPV 10.7 7.0-11.0 FL NRBC 0.0 <1.0 % NRBC Absolute 0.00 <0.10 K/mcL Neutrophils Relative 70.5 Lymphocytes Relative 19.4 Monocytes Relative 7.7 Eosinophils Relative 1.8 Basophils Relative 0.3 Immature Granulocytes Relative 0.3 Neutrophils Absolute 5.13 1.50-7.00 K/mcL Lymphocytes Absolute 1.41 1.00-5.00 K/mcL Monocytes Absolute 0.56 0.20-1.00 K/mcL Eosinophils Absolute 0.13 0.00-0.50 K/mcL Basophils Absolute 0.02 0.00-0.20 K/mcL Immature Granulocytes Absolute 0.02 0.00-0.03 K/mcL BASIC METABOLIC PANEL Reviewed date:04/15/2025 09:41:25 AM Interpretation: Performing Lab: Notes/Report: Sodium 138 133-145 mmol/L Potassium 3.9 3.5-5.5 mmol/L Chloride 100 96-110 mmol/L CO2 32 21-32 mmol/L Anion Gap 6 3-11 Glucose 122 70-100 mg/dL BUN 22 5-25 mg/dL Creatinine 1.15 0.50-1.10 mg/dL eGFR 50 >=60 mL/min/1.73m2 Calculati on based on the Chronic Kidney Disease Epidemiology Collaboration (CKD-EPI) equation refit without adjustment for race. BUN/Creatinine Ratio 19.1 Calcium 8.8 8.5-10.5 mg/dL BASIC METABOLIC PANEL Reviewed date:03/28/2025 10:08:35 AM Interpretation: Performing Lab: Notes/Report: Sodium 139 133-145 mmol/L Potassium 3.8 3.5-5.5 mmol/L Chloride 99 96-110 mmol/L CO2 33 21-32 mmol/L Anion Gap 7 3-11 Glucose 81 70-100 mg/dL BUN 19 5-25 mg/dL Creatinine 1.00 0.50-1.10 mg/dL eGFR 60 >=60 mL/min/1.73m2 Calculati on based on the Chronic Kidney Disease Epidemiology Collaboration (CKD-EPI) equation refit without adjustment for race. BUN/Creatinine Ratio 19.0 Calcium 8.6 8.5-10.5 mg/dL BASIC METABOLIC PANEL Reviewed date:03/10/2025 01:18:30 PM Interpretation: Performing Lab: Notes/Report: Sodium 140 133-145 mmol/L Potassium 3.6 3.5-5.5 mmol/L Chloride 101 96-110 mmol/L CO2 34 21-32 mmol/L Anion Gap 5 3-11 Glucose 110 70-100 mg/dL BUN 17 5-25 mg/dL Creatinine 1.10 0.50-1.10 mg/dL eGFR 53 >=60 mL/min/1.73m2 Calculati on based on the Chronic Kidney Disease Epidemiology Collaboration (CKD-EPI) equation refit without adjustment for race. BUN/Creatinine Ratio 15.5 Calcium 8.5 8.5-10.5 mg/dL BASIC METABOLIC PANEL Reviewed date:02/05/2025 08:43:39 AM Interpretation: Performing Lab: Notes/Report: Sodium 140 133-145 mmol/L Potassium 4.1 3.5-5.5 mmol/L Chloride 99 96-110 mmol/L CO2 35 21-32 mmol/L Anion Gap 6 3-11 Glucose 91 70-100 mg/dL BUN 26 5-25 mg/dL Creatinine 0.97 0.50-1.10 mg/dL eGFR 62 >=60 mL/min/1.73m2 Calculati on based on the Chronic Kidney Disease Epidemiology Collaboration (CKD-EPI) equation refit without adjustment for race. BUN/Creatinine Ratio 26.8 Calcium 8.9 8.5-10.5 mg/dL BASIC METABOLIC PANEL Reviewed date:01/29/2025 01:33:35 PM Interpretation: Performing Lab: Notes/Report: Sodium 143 133-145 mmol/L Potassium 4.0 3.5-5.5 mmol/L Chloride 103 96-110 mmol/L CO2 30 21-32 mmol/L Anion Gap 10 3-11 Glucose 89 70-100 mg/dL BUN 19 5-25 mg/dL Creatinine 0.76 0.50-1.10 mg/dL eGFR 83 >=60 mL/min/1.73m2 Calculati on based on the Chronic Kidney Disease Epidemiology Collaboration (CKD-EPI) equation refit without adjustment for race. BUN/Creatinine Ratio 25.0 Calcium 8.9 8.5-10.5 mg/dL Comp. Metabolic Panel (14)-3 Reviewed date:08/23/2024 11:29:33 AM Interpretation: Performing Lab:[facility], [address], [place], Phone - [phone], Director - Lynn Notes/Report: Glucose 134 70-99 mg/dL BUN 24 8-27 mg/dL Creatinine 1.09 0.57-1.00 mg/dL eGFR 54 >59 mL/min/1.73 BUN/Creatinine Ratio 22 12-28 Sodium 142 134-144 mmol/L Potassium 3.8 3.5-5.2 mmol/L Chloride 94 96-106 mmol/L Carbon Dioxide, Total 30 20-29 mmol/L Calcium 9.1 8.7-10.3 mg/dL Protein, Total 6.4 6.0-8.5 g/dL Albumin 4.0 3.8-4.8 g/dL Globulin, Total 2.4 1.5-4.5 g/dL Bilirubin, Total <0.2 0.0-1.2 mg/dL Alkaline Phosphatase 121 44-121 IU/L AST (SGOT) 16 0-40 IU/L ALT (SGPT) 14 0-32 IU/L Reason For Referral No Information Medications Medication SIG (Take, Route, Frequency, Duration) Notes Start Date End Date Status Ipratropium-Albuterol 0.5-2.5 (3) MG/3ML 3 mL as needed Inhalation every 6 hrs; Duration: 30 days 08/05/2024 Active Spironolactone 50 MG 1 tablet Orally Onc e a day 1/2 tab Active Montelukast Sodium 10 MG TAKE 1 TABLET B Y MOUTH EVERY DAY IN THE EVENING; Duration: 90 Active Ipratropium-Albuterol 0.5-2.5 (3) MG/3ML 3 mL as needed Inhalation every 6 hrs Active Venlafaxine HCl ER 150 MG TAKE 1 CAPSULE BY MOUTH EVERY DAY WITH FOOD; Duration: 90 Active Incruse Ellipta 62.5 MCG/ACT 1 puff Inhalation Once a day Active metFORMIN HCl 500 MG TAKE 1 TABLET BY MOUTH TWICE A DAY WITH MEALS; Duration: 90 Active Docusate Sodium 100 MG TAKE 1 CAPSULE BY MOUTH EVERY DAY NEEDED three times a day; Duration: 60 days Active Ciprofloxacin HCl 500 MG 1 tablet Orally every 12 hrs; Duration: 7 days 07/16/2024 Active Benzonatate 200 MG 1 capsule as needed Orally Three times a day PRN cough; Duration: 10 days 10/17/2024 Active Klor-Con M10 10 MEQ TAKE 1 TABLET BY MOUTH EVERY DAY; Duration: 90 Active Atorvastatin Calcium 40 MG TAKE 1 TABLET BY MOUTH EVERY DAY; Duration: 90 Active Torsemide 20 MG 3 tablets Orally daily Active Pregabalin 150 MG 1 capsule Oral three times daily; Duration: 30 days Active Senna-Time 8.6 MG TAKE 2 TABLETS BY MOUTH EVERY DAY AT BEDTIME NEEDED 30; Duration: 30 Active Omeprazole 20 MG TAKE 1 CAPSULE BY MOUTH EVERY DAY; Duration: 90 Active Fluticasone Furoate 50 MCG/ACT 1 puff Inhalation Once a day Active oxyCODONE-Acetaminophen 7.5-325 MG 1 tablet as needed Orally every 6 hrs Active Topiramate 50 MG 1 tablet Orally Twic e a day; Duration: 90 Active Probiotic Active Fluticasone Propionate 50 MCG/ACT SPRAY 1-2 SPRAY INTO EACH NOSTRIL DAILY 90; Duration: 90 Active Cetirizine HCl 10 MG 1 tablet Orally Onc e a day Active Furosemide 20 MG TAKE 3 TABLETS IN TH E MORNING AND 2 TABLETS IN IN THE EVENING; Duration: 90 Not-Taking Gabapentin 800 MG 1 tablet Orally Thre e Times Daily; Duration: 30 days Active Multi For Her - Orally Acti ve Tamsulosin HCl 0.4 MG TAKE 1 CAPSULE BY MOUTH EVERY DAY; Duration: 90 Active Venlafaxine HCl 75 MG TAKE 1 TABLET BY MOUTH EVERY DAY WITH FOOD; Duration: 90 Active Breo Ellipta 100-25 MCG/ACT 1 puff Inhalation Once a day Active Levothyroxine Sodium 50 MCG TAKE 1 TABLET BY MOUTH EVERY DAY; Duration: 90 Active Magnesium Citrate 100 MG as directed Orally Active metOLazone 2.5 MG 1 tablet Orally Two times a Week As needed Active Immunizations Vaccine Route Administration Date Status Comme nts Flu vaccine no Preserv 3 and > Unknown 09/23/2016 Administered influenza IM Intramuscular 08/03/2021 Administered Influenza, high dose seasonal Unknown 08/21/2017 Administered Influenza, high dose seasonal Unknown 08/09/2018 Administered Influenza, high dose seasonal IM Intramuscular 08/13/2018 Administered Influenza, high dose seasonal Unknown 08/08/2019 Administered Influenza, seasonal, injectable, 6-35 months Unknown 08/03/2021 Administered Pfizer Covid-19 Vaccine Unknown 11/29/2020 Administered Pfizer Covid-19 Vaccine Unknown 12/20/2020 Administered Pfizer Covid-19 Vaccine IM Intramuscular 01/19/2021 Admini stered Pfizer Covid-19 Vaccine Unknown 08/26/2021 Administered prevnar 13 Unknown 08/25/2017 Administered Social History Tobacco Use: Social History Observation Description Date Details (start date - stop date) Former Smoker NA - NA Tobacco Use/Smoking Question Answer Notes Are you a former smoker Problems Problem Type SNOMED Code ICD Code Onset Dates Problem Status W/U Status Risk Notes Problem Hypothyroidism (12647553) Hypothyroidism, unspecified (E03.9) Active confirmed Problem Obesity due to excess calories (372558567) Other obesity due to excess calories (E66.09) Active confirmed Problem Hyperlipidemia (12340850) Hyperlipidemia, unspecified (E78.5) Active confirmed Problem Severe recurrent major depression without psychotic features (94581924) Major depressive disorder, recurrent severe without psychotic features (F33.2) Active confirmed Problem Chronic pain (75642857) Other chronic pain (G89.29) Active confirmed Problem Acute on chronic diastolic heart failure (491541254) Acute on chronic diastolic (congestive) heart failure (I50.33) Active confirmed Problem Chronic obstructive pulmonary disease (08289863) Chronic obstructive pulmonary disease, unspecified (J44.9) Active confirmed Problem Plfme-[id number]-esoksnb hypoxemic respiratory failure (8909087941740639 0) Acute and chronic respiratory failure with hypoxia (J96.21) Active confirmed Problem Osteoarthritis (400628357) Unspecified osteoarthritis, unspecified site (M19.90) Active confirmed Problem Pain of left knee joint (finding) (281144013000370) Pain in left knee (M25.562) Active confirmed Problem Recurrent falls (931847855) Repeated falls (R29.6) Active confirmed Problem Body mass index 40+ - morbidly obese (531058043) Body mass index (BMI) 50-59.9 , adult (Z68.43) Active confirmed Problem Dependence on supplemental oxygen (409884614830) Dependence on supplemental oxygen (Z99.81) Active confirmed Problem Essential hypertension (61406538) Essential hypertension (I10) Active confirmed Problem Morbid obesity (003403651) Morbid obesity (E66.01) Active confirmed Problem Memory loss (84737801) Memory loss (R41.3) Active confirmed Problem Depressive disorder (disorder) (09012377) Depression, unspecified depression type (F32.9) Active confirmed Problem Hypothyroidism (02985413) Hypothyroidism, unspecified type (E03.9) Active confirmed Problem Body mass index 40+ - morbidly obese (253339915) Body mass index (BMI) 50-59.9, adult (Z68.43) Active confirmed Problem Sore throat (613614527) Sore throat (J02.9) Active confirmed Problem Vitamin D deficiency (80251972) Vitamin D deficiency (E55.9) Active confirmed Problem Acute exacerbation of chronic obstructive airways disease (099032392) COPD exacerbation (J44.1) Active confirmed Problem Constipation (48310656) Constipation, unspecified constipation type (K59.00) Active confirmed Problem Type II diabetes mellitus without complication (340413045) Type 2 diabetes mellitus without complication, without long-term current use of insulin (E11.9) Active confirmed Problem COPD - Chronic obstructive pulmonary disease (13110535) Chronic obstructive pulmonary disease, unspecified COPD type (J44.9) Active confirmed Problem Hyperglycemia due to type 2 diabetes mellitus (577032759058628) Type 2 diabetes mellitus with hyperglycemia, unspecified whether terminal system operator insulin use (E11.65) Active confirmed Problem Chest pain (12591532) Chest pain in adult (R07.9) Active confirmed Problem Osteoarthritis of knee (795474608) Osteoarthritis of both knees, unspecified osteoarthritis type (M17.0) Active confirmed Problem Abnormal gait (09005767) Gait instability (R26.81) Active confirmed Problem Chronic diastolic heart failure (815812322) Chronic diastolic heart failure (I50.32) Active confirmed Problem Acute on chronic systolic heart failure (701131657) Acute on chronic systolic heart failure (I50.23) Active confirmed Problem Sensorineural hearing loss, bilateral (025338162) Sensorineural hearing loss (SNHL) of both ears (H90.3) Active confirmed Problem Chronic respiratory failure (13928395) Chronic hypoxic respiratory failure (J96.11) Active confirmed Problem Peripheral edema (66580239) Peripheral edema (R60.0) Active confirmed Vital Signs Heart Rate 73 /min 10/16/2024 Blood pressure diastolic 80 mm Hg 10/16/2024 Oximetry 92 % 10/16/2024 Height 62 in 10/16/2024 Blood pressure systolic 132 mm Hg 10/16/2024 Weight 280 lbs 10/16/2024 BMI 51.21 kg/m2 10/16/2024 Encounters Encounter Location Date Provider Diagnosis [facility] [address] [place] [address] 07/22/2024 KATIE LOPEZ [facility] [address] [place] [id number] 07/23/2024 JIMMIE LOFTON [facility] [address] [place] [address] 07/29/2024 JIMMIE LOFTON [facility] [address] [place], [place] 07/30/2024 TALAL LOPEZ [facility] [address] [place], [place] 08/02/2024 JIMMIE BORHOT [facility] [address] [place], [place] 08/05/2024 TALAL LOPEZ [facility] [address] [place], [place] 08/13/2024 JIMMIE BORHOT [facility] [address] [place], [place] 08/20/2024 JIMMIESHAWN FIELDST Chronic obstructive pulmonary disease, unspecified J44.9 and Type 2 diabetes mellitus with hyperglycemia, unspecified whether terminal system operator insulin use E11.[address] [facility] [address] [place], [place] 09/16/2024 TALAL LOPEZ [facility] [address] [place], [place] 09/19/2024 JIMMIE NICEHLLEHOT [facility] [address] [place], [place] 09/19/2024 TALAL LOPEZ [facility] [address] [place], [place] 09/20/2024 TALAL LOPEZ [facility] [address] [place], [place] 10/14/2024 TALAL LOPEZ [facility] [address] [place] [address] 10/16/2024 JIMMIE NICHELLEHOT [facility] [address] [place], [place] 10/21/2024 JIMMIE BORHOT [facility] [address] [place], [place] 11/27/2024 TALAL LOPEZ [facility] [address] [place] [address] 01/30/2025 JIMMIE BORHOT [facility] [address] [place] [address] 03/14/2025 JIMMIE BORHOT [facility] [address] [place] [address] 07/22/2024 MADI ERVIN Chest pain in adult R07.9 ; Cough R05.9 ; Chronic obstructive pulmonary disease, unspecified J44.9 ; Essential hypertension I10 ; Other chronic pain G89.29 and Hypothyroidism, unspecified type E03.9 [facility] [address] [address] 07/16/2024 KATIE LOPEZ Chronic obstructive pulmonary disease, unspecified J44.9 ; Essential hypertension I10 ; Other chronic pain G89.29 ; Morbid obesity E66.01 and Type 2 diabetes mellitus with hyperglycemia, unspecified whether detention insulin use E11.65 [facility] [address] [address] 08/01/2024 JIMMIE LOFTON Acute on chronic hypoxic respiratory failure J96.21 ; Chronic obstructive pulmonary disease, unspecified J44.9 ; Chronic diastolic heart failure I50.32 ; Dependence on supplemental oxygen Z99.81 ; Morbid obesity E66.01 and Other chronic pain G89.29 [facility] [address] 09/10/2024 JIMMIE LOFTON Acute on chronic systolic heart failure I50.23 ; Hypokalemia E87.6 and Sore throat J02.9 [facility] [address] [address] 10/16/2024 JIMMIE LOFTON INGA (acute kidney injury) N17.9 ; COPD exacerbation J44.1 and Chronic diastolic heart failure I50.32 Assessments Encounter Date Diagnosis (ICD Code) Assessment Notes Treatment Notes Treatment Clinical Notes Section Notes 07/16/2024 Chronic obstructive pulmonary disease, unspecified (ICD-10 - J44.9) 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 She is on an extensive list of medications which were reviewed with the patient follow-up appointment confirmed with pulmonology and scheduling with 6 weeks follow-up with Jimmie who will follow-up with the patient on a regular basis. Given the medical complexity of this patient I would see her every 3 months 07/16/2024 Essential hypertension (ICD-10 - I10) Patient admitted to the hospital with suspected CHF was found to be euvolemic and discharged with no change in her medications. She is on an extensive list of medications which were reviewed with the patient follow-up appointment confirmed with pulmonology and scheduling with 6 weeks follow-up with Jimmie who will follow-up with the patient on a regular basis. Given the medical complexity of this patient I would see her every 3 months 07/22/2024 Chest pain in adult (ICD-10 - R07.9) Alyson is a 73-year-old female with extensive PMH including heart failure, COPD on 3L supplemental oxygen, hypothyroidism, HTN, HLD, arthritis that presents for evaluation of chest pain x1 day.Chest pain worse with inspiration/expi ration and unlike any pain the patient has felt before. Denies additional cardiac symptoms. Reporting associated symptoms of sore throat, mild cough and subjective fever/chills. COVID/flu/RSV swab obtained in office. On exam patient is in extreme distress and crying as her chest pain is unlike anything she has experienced before. On cardiac auscultation, regular rate and rhythm. Pulmonary auscultation difficult to discern as the patient is crying throughout the exam. O2 saturation 93% on 2 L supplemental O2, per APPEALS BOARD REFEREE typically around 95 to 97% at home. EKG obtained in office reveals sinus rhythm with some T wave changes in the anterior leads, consider old anterior infarct. When compared to EKG obtained 04/30/2024 does appear changed. In the setting of acute chest pain and given the patient's distress and EKG findings recommending the patient go to the emergency department for continued evaluation. Patient accompanied by APPEALS BOARD REFEREE who will escort her to the ED at this time. Expect call to [facility] ED placed. All questions answered to the patient's satisfaction. Patient demonstrates understanding of diagnosis and treatments discussed. Follow-up at next scheduled appointment, sooner should any questions/concer ns arise. Case discussed with collaborating physician Alexsander Lopez who has reviewed the assessment/plan. Chart, medications, labs, and vital signs reviewed. Dictation completed with the use of [email or web address].am voice recognition software, prone to medical misidentificatio ns and grammatical errors. All errors are unintentional. Although the practitioner does try to identify and correct errors, some may be present. Please do not hesitate to contact the practitioner for clarification. 07/22/2024 Cough (ICD-10 - R05.9) Alyson is a 73-year-old female with extensive PMH including heart failure, COPD on 3L supplemental oxygen, hypothyroidism, HTN, HLD, arthritis that presents for evaluation of chest pain x1 day.Chest pain worse with inspiration/expi ration and unlike any pain the patient has felt before. Denies additional cardiac symptoms. Reporting associated symptoms of sore throat, mild cough and subjective fever/chills. COVID/flu/RSV swab obtained in office. On exam patient is in extreme distress and crying as her chest pain is unlike anything she has experienced before. On cardiac auscultation, regular rate and rhythm. Pulmonary auscultation difficult to discern as the patient is crying throughout the exam. O2 saturation 93% on 2 L supplemental O2, per [employer] REFEREE typically around 95 to 97% at home. EKG obtained in office reveals sinus rhythm with some T wave changes in the anterior leads, consider old anterior infarct. When compared to EKG obtained 04/30/2024 does appear changed. In the setting of acute chest pain and given the patient's distress and EKG findings recommending the patient go to the emergency department for continued evaluation. Patient accompanied by APPEALS BOARD REFEREE who will escort her to the ED at this time. Expect call to [facility] ED placed. All questions answered to the patient's satisfaction. Patient demonstrates understanding of diagnosis and treatments discussed. Follow-up at next scheduled appointment, sooner should any questions/concer ns arise. Case discussed with collaborating physician Alexsander Lopez who has reviewed the assessment/plan. Chart, medications, labs, and vital signs reviewed. Dictation completed with the use of [email or web address][employer]am voice recognition software, prone to medical misidentificatio ns and grammatical errors. All errors are unintentional. Although the practitioner does try to identify and correct errors, some may be present. Please do not hesitate to contact the practitioner for clarification. 08/01/2024 Acute on chronic hypoxic respiratory failure (ICD-10 - J96.21) Prescription provided for nebulizer machine today Will prescribe guaifenesin to help loosen the manage secretions Continue prednisone Continue other chronic medications Of note, some information is being carried forward from prior records for informational purposes only and is being cited so that efficiency, safety and quality of the patient's care is not compromised This note was prepared using voice recognition software and direct typing Please excuse inadvertent salt refiner or typing errors, or uncorrected word substitutions Although every attempt has been made by the provider to proofread this document, occasional misspellings and typographical errors may still be present Due to the previous pandemic, and the use of personal protective equipment (PPE) This may decrease voice recognition accuracy Inadvertent salt refiner errors may occur 08/01/2024 Chronic obstructive pulmonary disease, unspecified (ICD-10 - J44.9) Prescription provided for nebulizer machine today Will prescribe guaifenesin to help loosen the manage secretions Continue prednisone Continue other chronic medications Of note, some information is being carried forward from prior records for informational purposes only and is being cited so that efficiency, safety and quality of the patient's care is not compromised This note was prepared using voice recognition software and direct typing Please excuse inadvertent salt refiner or typing errors, or uncorrected word substitutions Although every attempt has been made by the provider to proofread this document, occasional misspellings and typographical errors may still be present Due to the previous pandemic, and the use of personal protective equipment (PPE) This may decrease voice recognition accuracy Inadvertent salt refiner errors may occur 08/20/2024 Chronic obstructive pulmonary disease, unspecified (ICD-10 - J44.9) 09/10/2024 Acute on chronic systolic heart failure (ICD-10 - I50.23) Rapid strep is negative Continue diuresing with torsemide 60 mg daily Weight fluid restrictions and salt requirements discussed Of note, some information is being carried forward from prior records for informational purposes only and is being cited so that efficiency, safety and quality of the patient's care is not compromised This note was prepared using voice recognition software and direct typing Please excuse inadvertent salt refiner or typing errors, or uncorrected word substitutions Although every attempt has been made by the provider to proofread this document, occasional misspellings and typographical errors may still be present Due to the previous pandemic, and the use of personal protective equipment (PPE) This may decrease voice recognition accuracy Inadvertent salt refiner errors may occur 09/10/2024 Hypokalemia (ICD-10 - E87.6) Rapid strep is negative Continue diuresing with torsemide 60 mg daily Weight fluid restrictions and salt requirements discussed Of note, some information is being carried forward from prior records for informational purposes only and is being cited so that efficiency, safety and quality of the patient's care is not compromised This note was prepared using voice recognition software and direct typing Please excuse inadvertent salt refiner or typing errors, or uncorrected word substitutions Although every attempt has been made by the provider to proofread this document, occasional misspellings and typographical errors may still be present Due to the previous pandemic, and the use of personal protective equipment (PPE) This may decrease voice recognition accuracy Inadvertent salt refiner errors may occur 10/16/2024 INGA (acute kidney injury) (ICD-10 - N17.9) Diuretics recently adjusted, torsemide 60 mg twice a day with possibility of adding a third dose in the case of fluid retention or weight gain Will need to assess her potassium and electrolytes as well as renal function Will send her for a basic metabolic panel at the end of today's visit Of note, some information is being carried forward from prior records for informational purposes only and is being cited so that efficiency, safety and quality of the patient's care is not compromised This note was prepared using voice recognition software and direct typing Please excuse inadvertent salt refiner or typing errors, or uncorrected word substitutions Although every attempt has been made by the provider to proofread this document, occasional misspellings and typographical errors may still be present Due to the previous pandemic, and the use of personal protective equipment (PPE) This may decrease voice recognition accuracy Inadvertent salt refiner errors may occur 10/16/2024 COPD exacerbation (ICD-10 - J44.1) Diuretics recently adjusted, torsemide 60 mg twice a day with possibility of adding a third dose in the case of fluid retention or weight gain Will need to assess her potassium and electrolytes as well as renal function Will send her for a basic metabolic panel at the end of today's visit Of note, some information is being carried forward from prior records for informational purposes only and is being cited so that efficiency, safety and quality of the patient's care is not compromised This note was prepared using voice recognition software and direct typing Please excuse inadvertent salt refiner or typing errors, or uncorrected word substitutions Although every attempt has been made by the provider to proofread this document, occasional misspellings and typographical errors may still be present Due to the previous pandemic, and the use of personal protective equipment (PPE) This may decrease voice recognition accuracy Inadvertent salt refiner errors may occur 10/16/2024 Chronic diastolic heart failure (ICD-10 - I50.32) Diuretics recently adjusted, torsemide 60 mg twice a day with possibility of adding a third dose in the case of fluid retention or weight gain Will need to assess her potassium and electrolytes as well as renal function Will send her for a basic metabolic panel at the end of today's visit Of note, some information is being carried forward from prior records for informational purposes only and is being cited so that efficiency, safety and quality of the patient's care is not compromised This note was prepared using voice recognition software and direct typing Please excuse inadvertent salt refiner or typing errors, or uncorrected word substitutions Although every attempt has been made by the provider to proofread this document, occasional misspellings and typographical errors may still be present Due to the previous pandemic, and the use of personal protective equipment (PPE) This may decrease voice recognition accuracy Inadvertent salt refiner errors may occur 08/20/2024 Type 2 diabetes mellitus with hyperglycemia, unspecified whether detention insulin use (ICD-10 - E11.65) 09/10/2024 Sore throat (ICD-10 - J02.9) Rapid strep is negative Continue diuresing with torsemide 60 mg daily Weight fluid restrictions and salt requirements discussed Of note, some information is being carried forward from prior records for informational purposes only and is being cited so that efficiency, safety and quality of the patient's care is not compromised This note was prepared using voice recognition software and direct typing Please excuse inadvertent salt refiner or typing errors, or uncorrected word substitutions Although every attempt has been made by the provider to proofread this document, occasional misspellings and typographical errors may still be present Due to the previous pandemic, and the use of personal protective equipment (PPE) This may decrease voice recognition accuracy Inadvertent salt refiner errors may occur 08/01/2024 Chronic diastolic heart failure (ICD-10 - I50.32) Prescription provided for nebulizer machine today Will prescribe guaifenesin to help loosen the manage secretions Continue prednisone Continue other chronic medications Of note, some information is being carried forward from prior records for informational purposes only and is being cited so that efficiency, safety and quality of the patient's care is not compromised This note was prepared using voice recognition software and direct typing Please excuse inadvertent salt refiner or typing errors, or uncorrected word substitutions Although every attempt has been made by the provider to proofread this document, occasional misspellings and typographical errors may still be present Due to the previous pandemic, and the use of personal protective equipment (PPE) This may decrease voice recognition accuracy Inadvertent salt refiner errors may occur 07/22/2024 Chronic obstructive pulmonary disease, unspecified (ICD-10 - J44.9) Alyson is a 73-year-old female with extensive PMH including heart failure, COPD on 3L supplemental oxygen, hypothyroidism, HTN, HLD, arthritis that presents for evaluation of chest pain x1 day.Chest pain worse with inspiration/expi ration and unlike any pain the patient has felt before. Denies additional cardiac symptoms. Reporting associated symptoms of sore throat, mild cough and subjective fever/chills. COVID/flu/RSV swab obtained in office. On exam patient is in extreme distress and crying as her chest pain is unlike anything she has experienced before. On cardiac auscultation, regular rate and rhythm. Pulmonary auscultation difficult to discern as the patient is crying throughout the exam. O2 saturation 93% on 2 L supplemental O2, per APPEALS BOARD REFEREE typically around 95 to 97% at home. EKG obtained in office reveals sinus rhythm with some T wave changes in the anterior leads, consider old anterior infarct. When compared to EKG obtained 04/30/2024 does appear changed. In the setting of acute chest pain and given the patient's distress and EKG findings recommending the patient go to the emergency department for continued evaluation. Patient accompanied by APPEALS BOARD REFEREE who will escort her to the ED at this time. Expect call to [facility] ED placed. All questions answered to the patient's satisfaction. Patient demonstrates understanding of diagnosis and treatments discussed. Follow-up at next scheduled appointment, sooner should any questions/concer ns arise. Case discussed with collaborating physician Alexsander Lopez who has reviewed the assessment/plan. Chart, medications, labs, and vital signs reviewed. Dictation completed with the use of [email or web address][employer]am voice recognition software, prone to medical misidentificatio ns and grammatical errors. All errors are unintentional. Although the practitioner does try to identify and correct errors, some may be present. Please do not hesitate to contact the practitioner for clarification. 07/16/2024 Other chronic pain (ICD-10 - G89.29) Patient admitted to the hospital with suspected CHF was found to be euvolemic and discharged with no change in her medications. She is on an extensive list of medications which were reviewed with the patient follow-up appointment confirmed with pulmonology and scheduling with 6 weeks follow-up with Jimmie who will follow-up with the patient on a regular basis. Given the medical complexity of this patient I would see her every 3 months 07/16/2024 Morbid obesity (ICD-10 - E66.01) Patient admitted to the hospital with suspected CHF was found to be euvolemic and discharged with no change in her medications. She is on an extensive list of medications which were reviewed with the patient follow-up appointment confirmed with pulmonology and scheduling with 6 weeks follow-up with Jimmie who will follow-up with the patient on a regular basis. Given the medical complexity of this patient I would see her every 3 months 07/22/2024 Essential hypertension (ICD-10 - I10) Alyson is a 73-year-old female with extensive PMH including heart failure, COPD on 3L supplemental oxygen, hypothyroidism, HTN, HLD, arthritis that presents for evaluation of chest pain x1 day.Chest pain worse with inspiration/expi ration and unlike any pain the patient has felt before. Denies additional cardiac symptoms. Reporting associated symptoms of sore throat, mild cough and subjective fever/chills. COVID/flu/RSV swab obtained in office. On exam patient is in extreme distress and crying as her chest pain is unlike anything she has experienced before. On cardiac auscultation, regular rate and rhythm. Pulmonary auscultation difficult to discern as the patient is crying throughout the exam. O2 saturation 93% on 2 L supplemental O2, per APPEALS BOARD REFEREE typically around 95 to 97% at home. EKG obtained in office reveals sinus rhythm with some T wave changes in the anterior leads, consider old anterior infarct. When compared to EKG obtained 04/30/2024 does appear changed. In the setting of acute chest pain and given the patient's distress and EKG findings recommending the patient go to the emergency department for continued evaluation. Patient accompanied by APPEALS BOARD REFEREE who will escort her to the ED at this time. Expect call to [facility] ED placed. All questions answered to the patient's satisfaction. Patient demonstrates understanding of diagnosis and treatments discussed. Follow-up at next scheduled appointment, sooner should any questions/concer ns arise. Case discussed with collaborating physician Alexsander Lopez who has reviewed the assessment/plan. Chart, medications, labs, and vital signs reviewed. Dictation completed with the use of [email or web address] voice recognition software, prone to medical misidentificatio ns and grammatical errors. All errors are unintentional. Although the practitioner does try to identify and correct errors, some may be present. Please do not hesitate to contact the practitioner for clarification. 08/01/2024 Dependence on supplemental oxygen (ICD-10 - Z99.81) Prescription provided for nebulizer machine today Will prescribe guaifenesin to help loosen the manage secretions Continue prednisone Continue other chronic medications Of note, some information is being carried forward from prior records for informational purposes only and is being cited so that efficiency, safety and quality of the patient's care is not compromised This note was prepared using voice recognition software and direct typing Please excuse inadvertent salt refiner or typing errors, or uncorrected word substitutions Although every attempt has been made by the provider to proofread this document, occasional misspellings and typographical errors may still be present Due to the previous pandemic, and the use of personal protective equipment (PPE) This may decrease voice recognition accuracy Inadvertent salt refiner errors may occur 08/01/2024 Morbid obesity (ICD-10 - E66.01) Prescription provided for nebulizer machine today Will prescribe guaifenesin to help loosen the manage secretions Continue prednisone Continue other chronic medications Of note, some information is being carried forward from prior records for informational purposes only and is being cited so that efficiency, safety and quality of the patient's care is not compromised This note was prepared using voice recognition software and direct typing Please excuse inadvertent salt refiner or typing errors, or uncorrected word substitutions Although every attempt has been made by the provider to proofread this document, occasional misspellings and typographical errors may still be present Due to the previous pandemic, and the use of personal protective equipment (PPE) This may decrease voice recognition accuracy Inadvertent salt refiner errors may occur 07/22/2024 Other chronic pain (ICD-10 - G89.29) Alyson is a 73-year-old female with extensive PMH including heart failure, COPD on 3L supplemental oxygen, hypothyroidism, HTN, HLD, arthritis that presents for evaluation of chest pain x1 day.Chest pain worse with inspiration/expi ration and unlike any pain the patient has felt before. Denies additional cardiac symptoms. Reporting associated symptoms of sore throat, mild cough and subjective fever/chills. COVID/flu/RSV swab obtained in office. On exam patient is in extreme distress and crying as her chest pain is unlike anything she has experienced before. On cardiac auscultation, regular rate and rhythm. Pulmonary auscultation difficult to discern as the patient is crying throughout the exam. O2 saturation 93% on 2 L supplemental O2, per APPEALS BOARD REFEREE typically around 95 to 97% at home. EKG obtained in office reveals sinus rhythm with some T wave changes in the anterior leads, consider old anterior infarct. When compared to EKG obtained 04/30/2024 does appear changed. In the setting of acute chest pain and given the patient's distress and EKG findings recommending the patient go to the emergency department for continued evaluation. Patient accompanied by APPEALS BOARD REFEREE who will escort her to the ED at this time. Expect call to [facility] ED placed. All questions answered to the patient's satisfaction. Patient demonstrates understanding of diagnosis and treatments discussed. Follow-up at next scheduled appointment, sooner should any questions/concer ns arise. Case discussed with collaborating physician Alexsander Lopez who has reviewed the assessment/plan. Chart, medications, labs, and vital signs reviewed. Dictation completed with the use of [email or web address] voice recognition software, prone to medical misidentificatio ns and grammatical errors. All errors are unintentional. Although the practitioner does try to identify and correct errors, some may be present. Please do not hesitate to contact the practitioner for clarification. 07/16/2024 Type 2 diabetes mellitus with hyperglycemia, unspecified whether terminal system operator insulin use (ICD-10 - E11.65) Patient admitted to the hospital with suspected CHF was found to be euvolemic and discharged with no change in her medications. She is on an extensive list of medications which were reviewed with the patient follow-up appointment confirmed with pulmonology and scheduling with 6 weeks follow-up with Jimmie who will follow-up with the patient on a regular basis. Given the medical complexity of this patient I would see her every 3 months 07/22/2024 Hypothyroidism, unspecified type (ICD-10 - E03.9) Alyson is a 73-year-old female with extensive PMH including heart failure, COPD on 3L supplemental oxygen, hypothyroidism, HTN, HLD, arthritis that presents for evaluation of chest pain x1 day.Chest pain worse with inspiration/expi ration and unlike any pain the patient has felt before. Denies additional cardiac symptoms. Reporting associated symptoms of sore throat, mild cough and subjective fever/chills. COVID/flu/RSV swab obtained in office. On exam patient is in extreme distress and crying as her chest pain is unlike anything she has experienced before. On cardiac auscultation, regular rate and rhythm. Pulmonary auscultation difficult to discern as the patient is crying throughout the exam. O2 saturation 93% on 2 L supplemental O2, per APPEALS BOARD REFEREE typically around 95 to 97% at home. EKG obtained in office reveals sinus rhythm with some T wave changes in the anterior leads, consider old anterior infarct. When compared to EKG obtained 04/30/2024 does appear changed. In the setting of acute chest pain and given the patient's distress and EKG findings recommending the patient go to the emergency department for continued evaluation. Patient accompanied by APPEALS BOARD REFEREE who will escort her to the ED at this time. Expect call to [facility] ED placed. All questions answered to the patient's satisfaction. Patient demonstrates understanding of diagnosis and treatments discussed. Follow-up at next scheduled appointment, sooner should any questions/concer ns arise. Case discussed with collaborating physician Alexsander Lopez who has reviewed the assessment/plan. Chart, medications, labs, and vital signs reviewed. Dictation completed with the use of [email or web address] voice recognition software, prone to medical misidentificatio ns and grammatical errors. All errors are unintentional. Although the practitioner does try to identify and correct errors, some may be present. Please do not hesitate to contact the practitioner for clarification. 08/01/2024 Other chronic pain (ICD-10 - G89.29) Prescription provided for nebulizer machine today Will prescribe guaifenesin to help loosen the manage secretions Continue prednisone Continue other chronic medications Of note, some information is being carried forward from prior records for informational purposes only and is being cited so that efficiency, safety and quality of the patient's care is not compromised This note was prepared using voice recognition software and direct typing Please excuse inadvertent salt refiner or typing errors, or uncorrected word substitutions Although every attempt has been made by the provider to proofread this document, occasional misspellings and typographical errors may still be present Due to the previous pandemic, and the use of personal protective equipment (PPE) This may decrease voice recognition accuracy Inadvertent salt refiner errors may occur 12/23/2024 Acute Concerns/Problem List: 12/23/2024 Of note, some information is being carried forward from prior records for informational purposes only and is being cited so that efficiency, safety and quality of the patient's care is not compromised This note was prepared using voice recognition software and direct typing Please excuse inadvertent salt refiner or typing errors, or uncorrected word substitutions Although every attempt has been made by the provider to proofread this document, occasional misspellings and typographical errors may still be present Due to the previous pandemic, and the use of personal protective equipment (PPE) This may decrease voice recognition accuracy Inadvertent salt refiner errors may occur Plan Of Treatment Pending Test Test Name Order Date Mammogram 06/12/2018 TSH+Free T4 03/14/2019 Comp. Metabolic Panel (14) 03/14/2019 CBC 03/14/2019 MRI : Brain with and without contrast EKG 05/18/2022 EKG 07/22/2024 25OH VITAMIN D 09/28/2023 25OH VITAMIN D 03/22/2023 BASIC METABOLIC PANEL 05/18/2022 BASIC METABOLIC PANEL 12/01/2021 CBC (COMPLETE BLOOD COUNT) 09/14/2020 CBC (COMPLETE BLOOD COUNT) 11/28/2018 CBC (COMPLETE BLOOD COUNT) 06/11/2019 CBC (COMPLETE BLOOD COUNT) 04/03/2018 CBC (COMPLETE BLOOD COUNT) WITH DIFF CBC (COMPLETE BLOOD COUNT) WITH DIFF 08/2023 CBC (COMPLETE BLOOD COUNT) WITH DIFF 04/2022 COMPREHENSIVE METABOLIC PANEL 11/28/2018 COMPREHENSIVE METABOLIC PANEL 03/22/2023 COMPREHENSIVE METABOLIC PANEL 06/11/2019 COMPREHENSIVE METABOLIC PANEL 04/03/2018 COMPREHENSIVE METABOLIC PANEL 09/28/2023 HEMOGLOBIN A1C 09/28/2023 HEMOGLOBIN A1C 03/22/2023 HEMOGLOBIN A1C 12/01/2021 HEMOGLOBIN A1C 09/14/2020 HEMOGLOBIN A1C 05/23/2018 LIPID PANEL 09/14/2020 LIPID PANEL 05/23/2018 LIPID PANEL 03/22/2023 LIPID PANEL 09/28/2023 T4, TOTAL 03/22/2023 T4, TOTAL 02/09/2022 TSH 02/09/2022 TSH 03/22/2023 TSH WITH REFLEX TO FT4 06/11/2019 TSH WITH REFLEX TO FT4 09/28/2023 TSH WITH REFLEX TO FT4 05/23/2018 TSH WITH REFLEX TO FT4 11/28/2018 URINALYSIS W/REFLEX CULTURE 09/28/2023 URINALYSIS W/REFLEX CULTURE 03/22/2023 URINALYSIS, COMPLETE 09/14/2020 Basic Metabolic Panel 10/16/2024 BASIC METABOLIC PANEL 08/20/2024 Knee 3 Views Left 09/13/2021 US Renal and Bladder 04/08/2020 Future Test Test Name Order Date 25OH VITAMIN D 08/03/2021 CBC (COMPLETE BLOOD COUNT) 08/03/2021 COMPREHENSIVE METABOLIC PANEL 08/03/2021 HEMOGLOBIN A1C 08/03/2021 LIPID PANEL 08/03/2021 25OH VITAMIN D 09/18/2022 CBC (COMPLETE BLOOD COUNT) WITH DIFF 04/2022 COMPREHENSIVE METABOLIC PANEL 09/18/2022 HEMOGLOBIN A1C 09/18/2022 LIPID PANEL 09/18/2022 MICROALBUMIN, URINE 09/18/2022 TSH WITH REFLEX TO FT4 09/18/2022 URINALYSIS W/REFLEX CULTURE 09/18/2022 Insurance Providers Payer Name Payer Address Payer Phone Subscriber Number Group Number Insured Name Patient Relationship to Insured Coverage Start Date Coverage End Date [employer]Karolina or Options [address] [place] [id number] ALYSON KELLOGG Self - patient is the insured Medical (General) History Medical History History ICD Code Arthritis asthma hypertension hyperlipidemia chronic obstructive pulmonary disease (C OPD) morbid obesity Surgical History Surgery Date(Month/Year) colonoscopy 5 years ago back surgery DR shepherd 2019 Hospitalization History Reason Date(Month/Year) [facility] SOB and lower bilat swelling Aug 02
--- OUTSIDE RECORDS SUMMARY | 2025-07-10 14:11 | XMS_ITS | Encounter Summary ---
Author Organization [facility] Address [address] [place] [address] Care Team Providers Care University Relations Vice President Name Role Phone Conrado Melendez MD Primary Care Provider [phone] Encounter Details Date Type Department Care Team (Late Contact Info) Description 01/29/2025 Lab Requisition [facility] - Main Lab [address] [facility] [place] [address] Conrado Melendez MD [address] [facility] [address] [place], [address] Weakness; Anxiety disorder, unspecified; Chronic respiratory failure, unspecified whether with hypoxia or hypercapnia (CMS/HCC V24, CMS/HCC V28); Urinary tract infection, site not specified Social History Tobacco Use Types Packs/Day Years [...] Description 07/31/2025 10:35 AM EDT [facility] [address] [place] [address] Emma Puckett NP [address] [place] [address] 09/10/2025 10:00 AM EDT Ancillary Procedure [facility] - [address] [place] [address] documented as of this encounter Procedures Procedure Name Priority Date/Time Associated Diagnosis Comments COMPLETE BLOOD COUNT Routine 01/29/2025 5:30 AM EDT Weakness Anxiety disorder, unspecified Chronic respiratory failure, unspecified whether with hypoxia or hypercapnia (CMS/HCC) Urinary tract infection, site not specified BASIC METABOLIC PANEL Routine 01/29/2025 5:30 AM EDT Weakness Anxiety disorder, unspecified Chronic respiratory failure, unspecified whether with hypoxia or hypercapnia (CMS/HCC) Urinary tract infection, site not specified documented in this encounter Results * Basic metabolic panel (01/29/2025 5:30 AM EDT) Sodium 143 133 - 145 mmol/L LAB CHEMISTRY METHOD 01/29/2025 12:21 PM [facility] Potassium 4.0 3.5 - 5.5 mmol/L LAB CHEMISTRY METHOD 01/29/2025 12:21 PM [facility] Chloride 103 96 - 110 mmol/L LAB CHEMISTRY METHOD 01/29/2025 12:21 PM [facility] CO2 30 21 - 32 mmol/L LAB CHEMISTRY METHOD 01/29/2025 12:21 PM [facility] Anion Gap 10 3 - 11 LAB CHEMISTRY METHOD 01/29/2025 12:21 PM [facility] Glucose 89 70 - 100 mg/dL LAB CHEMISTRY METHOD 01/29/2025 12:21 PM [facility] BUN 19 5 - 25 mg/dL LAB CHEMISTRY METHOD 01/29/2025 12:21 PM [facility] Creatinine 0.76 0.50 - 1.10 mg/dL LAB CHEMISTRY METHOD 01/29/2025 12:[address] [facility] eGFR 83 >=60 mL/min/1. 73m2 LAB CHEMISTRY METHOD 01/29/2025 12:[address] [facility] Comment:Calculation based on the Chronic Kidney Disease Epidemiology Collaboration (CKD-EPI) equation refit without adjustment for race. BUN/Creatinine Ratio 25.0 LAB CHEMISTRY METHOD 01/29/2025 12:[address] [facility] Calcium 8.9 8.5 - 10.5 mg/dL LAB CHEMISTRY METHOD 01/29/2025 12:[address] [facility] Blood Venous blood specimen / Unknown Venipuncture / Unknown 01/29/2025 5:30 AM EDT 01/29/2025 9:54 AM EDT us Conrado Melendez MD LAB BLOOD ORDERABLES Final Resul t [facility] [address] [place] [address], [place] [phone] * (ABNORMAL) Complete blood count (01/29/2025 5:30 AM EDT) WBC 7.2 4.8 - 10.8 K/mcL LAB HEMETOLOGY METHOD 01/29/2025 11:[address] [facility] RBC 4.50 3.80 - 4.80 M/mcL LAB HEMETOLOGY METHOD 01/29/2025 11:[address] [facility] Hemoglobin 13.2 11.5 - 16.0 g/dL LAB HEMETOLOGY METHOD 01/29/2025 11:[address] [facility] Hematocrit 43.5 35.0 - 47.0 % LAB HEMETOLOGY METHOD 01/29/2025 11:[address] [facility] MCV 96.2 79.0 - 98.0 FL LAB HEMETOLOGY METHOD 01/29/2025 11:[address] [facility] MCH 29.2 27.0 - 32.0 pcg LAB HEMETOLOGY METHOD 01/29/2025 11:[address] [facility] MCHC 30.3(L) 32.0 - 37.0 g/dL LAB HEMETOLOGY METHOD 01/29/2025 11:[address] [facility] RDW 14.8 11.0 - 15.0 % LAB HEMETOLOGY METHOD 01/29/2025 11:[address] [facility] Platelets 243 130 - 400 K/mcL LAB HEMETOLOGY METHOD 01/29/2025 11:[address] [facility] MPV 11.2(H) 7.0 - 11.0 FL LAB HEMETOLOGY METHOD 01/29/2025 11:[address] [facility] NRBC 0.0 <1.0 % LAB HEMETOLOGY METHOD 01/29/2025 11:[address] [facility] NRBC Absolute 0.00 <0.10 K/mcL LAB HEMETOLOGY METHOD 01/29/2025 11:03 AM [facility] Blood Venous blood specimen / Unknown Venipuncture / Unknown 01/29/2025 5:30 AM EDT 01/29/2025 9:54 AM EDT us Conrado Melendez MD LAB BLOOD ORDERABLES Final Resul t [facility] [address] [place] [address], [place] [phone] documented in this encounter Visit Diagnoses Diagnosis Weakness Other malaise and fatigue Anxiety disorder, unspecified Chronic respiratory failure, unspecified whether with hypoxia or hypercapnia (CMS/HCC V24, CMS/HCC V28) Urinary tract infection, site not specified documented in this encounter Care Teams University Relations Vice President Relationship Specialty Start Date End Date Conrado Melendez MD [address] [place] [address] [address] [place], [address] PCP - General Family Medicine 05/27/25 documented as of this encounter
--- OUTSIDE RECORDS SUMMARY | 2025-07-10 14:11 | XMS_ITS | Encounter Summary ---
Author Organization [facility] Address [address] [place] [address] Care Team Providers Care Bus Girl Name Role Phone Conrado Melendez MD Primary Care Provider [phone] Encounter Details Date Type Department Care Team (Late Contact Info) Description 06/12/2025 Lab Requisition [facility] - Main Lab [address] [facility] [place] [address] Conrado Melendez MD [address] [facility] [address] [place], [address] Essential (primary) hypertension; Hyperlipidemia, unspecified Social [...] Description 07/31/2025 10:35 AM EDT Office Visit [facility] [address] [place] [address] Emma Bateman NP [address] [place] [address] 09/10/2025 10:00 AM EDT Ancillary Procedure [facility] - [address] [place] [address] documented as of this encounter Procedures Procedure Name Priority Date/Time Associated Diagnosis Comments COMPLETE BLOOD COUNT Routine 06/13/2025 7:12 AM EDT Essential (primary) hypertension Hyperlipidemia, unspecified BASIC METABOLIC PANEL Routine 06/13/2025 7:12 AM EDT Essential (primary) hypertension Hyperlipidemia, unspecified documented in this encounter Results * (ABNORMAL) Basic metabolic panel (06/13/2025 7:12 AM EDT) Sodium 141 133 - 145 mmol/L LAB CHEMISTRY METHOD 06/13/2025 1:00 PM [facility] Potassium 4.4 3.5 - 5.5 mmol/L LAB CHEMISTRY METHOD 06/13/2025 1:00 PM [facility] Chloride 101 96 - 110 mmol/L LAB CHEMISTRY METHOD 06/13/2025 1:00 PM [facility] CO2 35(H) 21 - 32 mmol/L LAB CHEMISTRY METHOD 06/13/2025 1:00 PM [facility] Anion Gap 5 3 - 11 LAB CHEMISTRY METHOD 06/13/2025 1:00 PM [facility] Glucose 81 70 - 100 mg/dL LAB CHEMISTRY METHOD 06/13/2025 1:00 PM [facility] BUN 24 5 - 25 mg/dL LAB CHEMISTRY METHOD 06/13/2025 1:00 PM [facility] Creatinine 1.00 0.50 - 1.10 mg/dL LAB CHEMISTRY METHOD 06/13/2025 1:00 PM [facility] eGFR 60 >=60 mL/min/1. 73m2 LAB CHEMISTRY METHOD 06/13/2025 1:00 PM [facility] Comment:Calculation based on the Chronic Kidney Disease Epidemiology Collaboration (CKD-EPI) equation refit without adjustment for race. BUN/Creatinine Ratio 24.0 LAB CHEMISTRY METHOD 06/13/2025 1:00 PM EDT [facility] Calcium 9.1 8.5 - 10.5 mg/dL LAB CHEMISTRY METHOD 06/13/2025 1:00 PM EDT [facility] Blood Venous blood specimen / Unknown Venipuncture / Unknown 06/13/2025 7:12 AM EDT 06/13/2025 9:37 AM EDT us Conrado Melendez MD LAB BLOOD ORDERABLES Final Resul t [facility] [address] [place] [address], [place] [phone] * (ABNORMAL) Complete blood count (06/13/2025 7:12 AM EDT) WBC 6.7 4.8 - 10.8 K/mcL LAB [facility] RBC 4.00 3.80 - 4.80 M/mcL LAB HEMETOLOGY METHOD 06/13/2025 9:56 AM T [facility] Hemoglobin 11.2(L) 11.5 - 16.0 g/dL LAB HEMETOLOGY METHOD 06/13/2025 9:56 AM T [facility] Hematocrit 37.3 35.0 - 47.0 % LAB HEMETOLOGY METHOD 06/13/2025 9:56 AM EDT [facility] MCV 93.5 79.0 - 98.0 FL LAB HEMETOLOGY METHOD 06/13/2025 9:56 AM [facility] MCH 28.1 27.0 - 32.0 pcg LAB HEMETOLOGY METHOD 06/13/2025 9:56 AM [facility] MCHC 30.0(L) 32.0 - 37.0 g/dL LAB HEMETOLOGY METHOD 06/13/2025 9:56 AM EDT [facility] RDW 14.6 11.0 - 15.0 % LAB HEMETOLOGY METHOD 06/13/2025 9:56 AM EDT [facility] Platelets 219 130 - 400 K/mcL LAB HEMETOLOGY METHOD 06/13/2025 9:56 AM EDT [facility] MPV 10.5 7.0 - 11.0 FL LAB HEMETOLOGY METHOD 06/13/2025 9:56 AM EDT [facility] NRBC 0.0 <1.0 % LAB HEMETOLOGY METHOD 06/13/2025 9:56 AM EDT [facility] NRBC Absolute 0.00 <0.10 K/mcL LAB HEMETOLOGY METHOD 06/13/2025 9:56 AM EDT [facility] Blood Venous blood specimen / Unknown Venipuncture / Unknown 06/13/2025 7:12 AM EDT 06/13/2025 9:37 AM EDT us Conrado Melendez MD LAB BLOOD ORDERABLES Final Resul t [facility] [address] [place] [address], documented in this encounter Visit Diagnoses Diagnosis Essential (primary) hypertension Unspecified essential hypertension Hyperlipidemia, unspecified documented in this encounter Care Teams Bus Girl Relationship Specialty Start Date End Date Conrado Melendez MD [address] [place] [address], [phone] PCP - General Family Medicine 05/27/25 documented as of this encounter
--- OUTSIDE RECORDS SUMMARY | 2025-07-10 14:11 | XMS_ITS | Encounter Summary ---
Author Organization [facility] Address [address] [place] [address] Care Team Providers Care Rock Picker Name Role Phone Conrado Melendez MD Primary Care Provider [phone] Encounter Details Date Type Department Care Team (Late Contact Info) Description 06/20/2025 Lab Requisition [facility] Lab [address] [facility] [place] [address] Conrado Melendez MD [address] [facility] [address] [place], [phone] Urinary tract infection, site not specified Social [...] Description 07/31/2025 10:35 AM EDT [facility] [address] [facility] [address] [place] [address] Emma Bateman NP [address] [place] [address] 09/10/2025 10:00 AM EDT Ancillary Procedure [facility] [address] [place] [address] documented as of this encounter Procedures Procedure [...] EDT Urinary tract infection, site not specified documented in this encounter Results * (ABNORMAL) Culture urine (06/20/2025 6:15 AM EDT) [facility] Culture, Urine 10,000-49,000 CFU/mL Klebsiella pneumoniae ssp pneumoniae(A) SILVIA 06/22/2025 8:39 AM EDT [facility]) [facility] Comment: This is an edited result. [...] MICROBIOLOGY - GENERAL ORDER CHAVO Final Result [facility] [address] [place] [address], [place] [phone] * (ABNORMAL) Urinalysis with reflex microscopic and culture (06/20/2025 6:15 AM EDT) Specific [place] Urine 1.015 1.003 - 1.030 LAB URINALYSIS - AUTOMATED METHOD 06/20/2025 10:13 AM [facility] pH, Urine 5.5 5.0 - 8.0 pH LAB URINALYSIS - AUTOMATED METHOD 06/20/2025 10:13 AM [facility] Leukocytes, Urine Moderate(A) Negative LAB URINALYSIS - AUTOMATED METHOD 06/20/2025 10:13 AM [facility] Nitrite, Urine Negative Negative LAB URINALYSIS - AUTOMATED METHOD 06/20/2025 10:13 AM [facility] Protein, Urine Negative <=Trace mg/dL LAB URINALYSIS - AUTOMATED METHOD 06/20/2025 10:13 AM [facility] Glucose, Urine Negative Negative mg/dL LAB URINALYSIS - AUTOMATED METHOD 06/20/2025 10:13 AM [facility] Ketones, Urine Negative Negative mg/dL LAB URINALYSIS - AUTOMATED METHOD 06/20/2025 10:13 AM [facility] Urobilinogen , Urine 1.0 0.2 - 1.0 mg/dL LAB URINALYSIS - AUTOMATED METHOD 06/20/2025 10:13 AM [facility] Bilirubin, Urine Negative Negative LAB URINALYSIS - AUTOMATED METHOD 06/20/2025 10:13 AM [facility] Blood, Urine Negative Negative LAB URINALYSIS - AUTOMATED METHOD 06/20/2025 10:13 AM [facility] RBC, Urine 0.6 0 - 4 /HPF LAB URINALYSIS - AUTOMATED METHOD 06/20/2025 10:13 AM [facility] WBC, Urine 11.5(H) 0 - 4 /HPF LAB URINALYSIS - AUTOMATED METHOD 06/20/2025 10:13 AM [facility] Squamous Epithelial, Urine 86(H) 0 - 60 /LPF LAB URINALYSIS - AUTOMATED METHOD 06/20/2025 10:13 AM [facility] Bacteria, Urine Negative Negative /HPF LAB URINALYSIS - AUTOMATED METHOD 06/20/2025 10:13 AM [facility] Hyaline Casts, Urine 0.0 0 - 3 /LPF LAB URINALYSIS - AUTOMATED METHOD 06/20/2025 10:13 AM [facility] Urine Urine specimen obtained by clean catch procedure / Unknown 06/20/2025 6:15 AM EDT 06/20/2025 9:19 AM EDT us Conrado Melendez MD LAB URINE ORDERABLES Final Resul t [facility] [address] [place] [address], * [place] urine culture tube (06/20/2025 6:15 AM EDT) Extra Tube Hold for add-ons. 06/20/2025 11:01 AM EDT [facility] Comment:Auto resulted. Urine Urine specimen obtained by clean catch procedure / Unknown 06/20/2025 6:15 AM EDT 06/20/2025 9:19 AM EDT us Conrado Melendez MD LAB URINE ORDERABLES Final Resul t [facility] ([facility]) [facility] [address] [place] [address], documented in this encounter Visit Diagnoses Diagnosis Urinary tract infection, site not specified documented in this encounter Care Teams Rock Picker Relationship Specialty Start Date End Date Conrado Melendez MD [address] [place] [phone] PCP - General Family Medicine 05/27/25 documented as of this encounter
== END 2025-07-10 14:14 | disposition home or self-care (01) ==
LOC: HO.HSM 13:29
PROVIDERS: PCP Internal Medicine; Visit Provider Registered Nurse
DX: G40.909 Epilepsy, unspecified, not intractable, without status epilepticus (principal); M79.7 Fibromyalgia; G62.9 Polyneuropathy, unspecified; M50.90 Cervical disc disorder, unspecified, unspecified cervical region; F44.9 Dissociative and conversion disorder, unspecified
CPT/HCPCS: 99214

== ENCOUNTER → 2025-07-10 13:28 | Outpatient (BNVA) | payer OTHER, SELFPAY | PROVIDERS: PCP Internal Medicine; Visit Provider Registered Nurse | DX: G40.909 Epilepsy, unspecified, not intractable, without status epilepticus (principal); G62.9 Polyneuropathy, unspecified; M50.90 Cervical disc disorder, unspecified, unspecified cervical region; F44.9 Dissociative and conversion disorder, unspecified; M79.7 Fibromyalgia | CPT/HCPCS: 99212 ==